=== PATIENT | male | born 1950 | race Caucasian/White ===

== ENCOUNTER 2018-06-29 10:15 | Emergency (ER) | payer MEDICARE, SELFPAY ==
--- NOTE | 2018-06-29 10:19 | ED.SKABFB ---
HPI - Skin/Abscess/Foreign Bdy General Chief complaint: Skin/Abscess/Foreign Body Stated complaint: painful rash in groin area Time Seen by Provider: 06/29/18 10:18 Source: patient Mode of arrival: ambulatory Limitations: no limitations History of Present Illness HPI narrative: 68M nonsmoker, on no medications presents with a chief complaint a few months intensely pruritic darkening skin in his groin including the scrotum. He has tried various [id number] medications including steroid cream and Lamisil which of proven unsuccessful. He denies any pain or drainage. He has had no fever or chills. He denies any dysuria, frequency or urgency. He is otherwise healthy Related Data Previous Rx's Medication Instructions Recorded terbinafine HCl 250 mg PO DAILY #14 tab 06/29/18 Allergies Allergy/AdvReac Type Severity Reaction Status Date / Time No Known Drug Allergies Allergy Verified 06/29/18 10:29 Review of Systems Constitutional Denies chills, Denies fever(s), Denies lethargy and Denies weakness Eyes Denies change in vision, Denies eye discharge, Denies irritation and Denies loss of vision ENT Ears, Nose, Mouth, and Throat: Denies change in voice, Denies neck pain and Denies sore throat Cardiovascular Denies chest pain, Denies irregular heart rhythm, Denies lightheadedness, Denies palpitations, Denies dyspnea, Denies dyspnea on exertion and Denies orthopnea Respiratory Denies cough, Denies dyspnea, Denies dyspnea on exertion and Denies wheezing Gastrointestinal Gastrointestinal: Denies abdominal pain, Denies change in bowel habits, Denies diarrhea, Denies nausea and Denies vomiting Genitourinary Denies hematuria, Denies flank pain, Denies urinary incontinence and Denies urinary urgency Musculoskeletal Denies neck pain Integumentary/Breasts Reports pruritus, Reports erythema, Reports rash and Denies wounds Neurologic Denies confusion, Denies loss of vision and Denies weakness Psychiatric Denies anxiety, Denies confusion, Denies depression, Denies homicidal ideation and Denies suicidal ideation Endocrine Denies palpitations Hematologic/Lymphatic Denies easy bruising Allergic/Immunologic Denies wheezing PFSH Surgical History Status post arthroscopy Status post knee surgery Social History Smoking Status: Never smoker Social History Smoking Status: Never smoker Exam Narrative Exam Narrative: GEN: AOx3 and in mild distress EYES: Pupils are equal, round, and reactive to light and accommodation. Extraoccular muscles are intact bilaterally. There is no subconjunctival hemorrhage or exudate. CHEST: Lungs are clear to auscultation bilaterally and free of wheezes, rales, or rhonchi. Heart rate is regular rhythm, there are no murmurs, clicks, rubs, or gallops. There is no chest wall tenderness. ABD: Abdomen is soft and nontender. There is no guarding or rebound. Bowel sounds are normal in all 4 quadrants. There is no mass or organomegaly. EXT: Full painless ROM of all extremities with no loss of sensation or strength. SKIN: intensely pruritic finally demarcated, erythematous skin of the groin and scrotum including the skin folds with satellite lesions. There is no drainage or pain. Initial Vital Signs Initial Vital Signs: Vital Signs Temperature 98.1 F 06/29/18 10:27 Pulse Rate 69 06/29/18 10:27 Respiratory Rate 14 06/29/18 10:27 Blood Pressure 140/81 06/29/18 10:27 Pulse Oximetry 100 06/29/18 10:27 Course Vital Signs - 8 hr 06/29/18 12:06 Temperature 97.8 F Pulse Rate 94 H Respiratory Rate 18 Blood Pressure [Left Arm] 132/77 Pulse Oximetry 99 MDM - Skin/Abscess/Foreign Bdy MDM Narrative Medical decision making narrative: Multiple etiologies for patient's symptoms considered including: [ Cellulitis versus fungal infection versus Desi versus other] Patient's symptoms improved or duration of stay with above-stated therapies. Findings and discharge diagnosis discussed with patient/family followed by verbalization of understanding Return precautions discussed with patient/family whom verbalize understanding. Discharge Plan Departure Patient Disposition: Home Clinical Impression: Tinea cruris Discharge Date/Time: 06/29/18 12:20 Interventions: ED Discharge Assessment Last Done: 06/29/18 12:19 Instructions: Jock Itch Activity Restrictions/Additional Instructions: *You have been diagnosed with [tinea cruris, jock itch] *What to do: *Take medications as directed *Follow up with your primary care provider in 2-3 days, call for an appointment. Let them know you were seen in the Emergency Department and that we ask that you be seen in follow up *Return to ER if you should have any new, worsening or concerning symptoms Prescriptions: New terbinafine HCl 250 mg tablet 250 mg PO DAILY Qty: 14 RF: 0 Referrals: Toma Bailey DO [Primary Care Provider] -
[2018-06-29 10:27] VITALS: BP 140/81; PULSE 69; RESP 14; TEMP 36.7; O2SAT 100
[2018-06-29 12:06] VITALS: BP 132/77; PULSE 94; RESP 18; TEMP 36.6; O2SAT 99
== END 2018-06-29 12:20 | disposition home or self-care (01) ==
PROVIDERS: Emergency Provider Emergency Medicine; Family Provider Family Medicine; PCP Family Medicine
DX: B35.6 Tinea cruris (principal)
CPT/HCPCS: 99282

== ENCOUNTER 2018-07-09 10:11 | Emergency (ER) | payer MEDICARE, SELFPAY ==
[2018-07-09 10:14] VITALS: BP 133/82; PULSE 101; RESP 21; TEMP 36.4; O2SAT 99
--- NOTE | 2018-07-09 11:09 | ED.MALEGU ---
HPI - Male Genitourinary General Chief complaint: Urogenital-Male Stated complaint: infection Time Seen by Provider: 07/09/18 11:09 Source: patient and old records reviewed Mode of arrival: ambulatory Limitations: no limitations History of Present Illness HPI Narrative: Patient is a 68-year-old male who presents with tinea cruris. he has had this problem in the past it has been ongoing for the last number of months. On 06/29/2018 he was given prescription for terbinafine. He has 3 tablets left he says at honestly has not helped at all and in fact over the last 2 days it has gotten significantly worse. He continues to have pruritus but he feels like the redness has gotten worse. He denies any fever no testicular pain. He has also been applying Lamisil cream daily and as prescribed without any relief. His symptoms really have been going on for a few months. Duration: constant Location: penis, right testicle, left testicle, right inguinal region and left inguinal region Quality: other ( Itching) Relieving factors: none Exacerbating factors: none Related Data Previous Rx's Medication Instructions Recorded cephalexin 500 mg PO TID #21 cap 07/09/18 ketoconazole 1 applictn TOP DAILY 14 Days #30 07/09/18 gram Allergies Allergy/AdvReac Type Severity Reaction Status Date / Time No Known Drug Allergies Allergy Verified 06/29/18 10:29 Review of Systems Review of Systems ROS Unobtainable: All systems reviewed & are unremarkable except as noted in HPI and below Constitutional Denies chills, Denies fever(s), Denies lethargy and Denies weakness Eyes Denies change in vision, Denies eye discharge, Denies irritation and Denies loss of vision Cardiovascular Denies chest pain, Denies irregular heart rhythm, Denies lightheadedness, Denies palpitations, Denies dyspnea, Denies dyspnea on exertion and Denies orthopnea Respiratory Denies cough, Denies dyspnea, Denies dyspnea on exertion and Denies wheezing Gastrointestinal Gastrointestinal: Denies abdominal pain, Denies change in bowel habits, Denies diarrhea, Denies nausea and Denies vomiting Genitourinary Reports as per HPI, Reports genital pain, Denies penile discharge, Denies testicular mass, Denies testicular pain and Denies urinary frequency Integumentary/Breasts Reports as per HPI Neurologic Denies loss of vision and Denies weakness Endocrine Denies palpitations Allergic/Immunologic Denies wheezing [facility] Medical History Tinea cruris (Acute) Surgical History Status post arthroscopy Status post knee surgery Social History Smoking Status: Never smoker Social History Smoking Status: Never smoker Exam Initial Vital Signs Initial Vital Signs: Vital Signs Temperature 97.6 F 07/09/18 10:14 Pulse Rate 101 H 07/09/18 10:14 Respiratory Rate 21 07/09/18 10:14 Blood Pressure 133/82 07/09/18 10:14 Pulse Oximetry 99 07/09/18 10:14 GENERAL: alert well-appearing elderly male no acute distress CARDIOVASCULAR: peripheral pulses in tact, cap refill <2 sec RESPIRATORY: No respiratory distress, speaks in full sentences without difficulty : nurse Anton present for exam. Testicles descended nonpainful both slightly enlarged. Patient has significant erythematous rash medial thighs covering testicles and penile area. very clearly demarcated some stellate lesions noted. EXTREMITIES: Normal range of motion, no clubbing or edema. Neurovascularly intact NEUROLOGICAL: Cranial nerves II through XII grossly intact. Normal gait and speech. SKIN: Warm, dry, no petechiae, no rashes or lesions. Course Vital Signs - 8 hr 07/09/18 10:14 Temperature 97.6 F Pulse Rate 101 H Respiratory Rate 21 Blood Pressure 133/82 Pulse Oximetry 99 MDM - Male Genitourinary MDM Narrative Medical decision making narrative: Patient has been putting on cream in taking her prescribed medication however the last few days ago worse. Possible cellulitis as well. The patient does have an appointment with his PCP next week. At this time will change cream to ketoconazole and place him on antibiotic. He is afebrile does not appear septic. Discharge Plan Departure Patient Disposition: Home Clinical Impression: Tinea cruris Discharge Date/Time: 07/09/18 11:57 Interventions: ED Discharge Assessment Last Done: 07/09/18 11:57 Instructions: Gil Itch Activity Restrictions/Additional Instructions: *You have been diagnosed with tinea cruris *What to do: STOP [id number] medication, *Continue to take medications as directed apply ketoconazole once daily for 2 weeks- this is anti fungal Keflex 500 mg 3 times a day for 1 week this is an antibiotic *Follow up with your primary care provider as scheduled on July 20 *Return to ER if you should have spreading of the redness, fever, increased pain or any new, worsening or concerning symptoms Prescriptions: New cephalexin 500 mg capsule 500 mg PO TID Qty: 21 RF: 0 ketoconazole 2 % cream 1 applictn TOP DAILY 14 Days Qty: 30 RF: 0 Discontinued terbinafine HCl 250 mg tablet 250 mg PO DAILY Qty: 14 RF: 0 Referrals: Toma Bailey DO [Primary Care Provider] -
--- NOTE | 2018-07-09 11:44 | PC.NURSE ---
Patient presents with significant swelling, redness and pain to scrotum, bilateral inner thighs and penis. Has been on oral antifungal agent and OTC cream for couple weeks with minimal to no relief. Denies fever or chills
== END 2018-07-09 11:57 | disposition home or self-care (01) ==
PROVIDERS: Emergency Provider Emergency Medicine; Family Provider Family Medicine; PCP Family Medicine
DX: B35.6 Tinea cruris (principal)
CPT/HCPCS: 99282

== ENCOUNTER → 2019-01-07 13:16 | Outpatient (CLI) | payer MEDICARE, SELFPAY ==
[2019-01-25 11:15] LABS: Complement C3 93
== END ==
PROVIDERS: PCP Family Medicine; Visit Provider Physician Assistant
DX: L95.8 Other vasculitis limited to the skin (principal); L57.8 Other skin changes due to chronic exposure to nonionizing radiation; X32.XXXA Exposure to sunlight, initial encounter
CPT/HCPCS: 36415; 86160

== ENCOUNTER → 2019-01-25 16:28 | Outpatient (CLI) | payer MEDICARE, SELFPAY ==
[2019-01-25 17:06] LABS: Add Manual Diff / Slide Review NO; Basophils Absolute Auto 100 /uL (0-100); Basophils Percent Auto 1.1 % (0-2); Eosinophils Absolute Auto 100 /uL (0-450); Eosinophils Percent Auto 1.7 % (2-4); Hematocrit 43.4 % (41-53); Lymphocytes Absolute Auto 1900 /uL (1100-4500); Lymphocytes Percent Auto 39.1 % (25-40); Mean Corpuscular HGB Conc 34.5 % (30-36); Mean Corpuscular Hemoglobin 36.4 PG (26-34); Mean Corpuscular Volume 105.4 fL (80-100); Monocytes Absolute Auto 300 /uL (0-900); Neutrophils Absolute Auto 2400 /uL (1500-7000); Neutrophils Percent Auto 51.1 % (50-75); Platelet Count 107 X10^3/uL (150-400); Red Blood Cell Count 4.11 X10^6/uL (4.5-5.9); Red Cell Distribution Width 14.2 % (11.6-14.8); White Blood Cell Count 4.7 X10^3/uL (4.5-11.0)
[2019-01-25 17:17] LABS: Chloride 104 mmol/L (98-107); HEMOLYSIS < 15 (0-50)
[2019-01-25 17:20] LABS: Alanine Aminotransferase 28 IU/L (21-72); Albumin 3.8 g/dL (3.5-5.0); Albumin Globulin Ratio 0.9 (1.0-2.8); Alkaline Phosphatase 101 U/L (38-126); Aspartate Aminotransferase 37 IU/L (17-59); BUN Creatinine Ratio 13.8 (6-22); Bilirubin Total 1.1 mg/dL (0.2-1.3); Blood Urea Nitrogen 11 mg/dL (9-20); Calcium 9.3 mg/dL (8.4-10.2); Carbon Dioxide 25 mmol/L (22-32); Estimated Glomerular Filt Rate > 60.0 mL/min (>60); Globulin 4.4 g/dL (1.7-4.1); Glucose 166 mg/dL (80-110); Potassium 3.8 mmol/L (3.4-5.1); Sodium 139 mmol/L (137-145); Total Protein 8.2 g/dL (6.3-8.2)
[2019-01-25 17:27] LABS: Erythrocyte Sedimentation Rate 36 MM/HR (0-15)
[2019-01-28 23:01] LABS: ANA Screen, IFA NEGATIVE (NEGATIVE)
== END ==
PROVIDERS: PCP Family Medicine; Visit Provider Physician Assistant
DX: L95.8 Other vasculitis limited to the skin (principal); L29.8 Other pruritus
CPT/HCPCS: 36415; 80053; 85025; 85651; 86038

== ENCOUNTER → 2020-05-10 11:00 | Outpatient (CLI) | payer MEDICARE, SELFPAY ==
[2020-05-10 11:46] LABS: Add Manual Diff / Slide Review NO; Basophils Absolute Auto 0 /uL (0-100); Basophils Percent Auto 0.9 % (0-2); Eosinophils Absolute Auto 100 /uL (0-450); Eosinophils Percent Auto 3.1 % (2-4); Hematocrit 41.2 % (41-53); Hemoglobin 14.2 g/dL (13.5-17.5); Lymphocytes Absolute Auto 1400 /uL (1100-4500); Lymphocytes Percent Auto 30.1 % (25-40); Mean Corpuscular HGB Conc 34.5 % (30-36); Mean Corpuscular Hemoglobin 34.5 PG (26-34); Mean Corpuscular Volume 99.8 fL (80-100); Monocytes Absolute Auto 400 /uL (0-900); Monocytes Percent Auto 8.4 % (3-14); Neutrophils Absolute Auto 2700 /uL (1500-7000); Neutrophils Percent Auto 57.5 % (50-75); Platelet Count 129 X10^3/uL (150-400); Red Blood Cell Count 4.13 X10^6/uL (4.5-5.9); Red Cell Distribution Width 13.5 % (11.6-14.8); White Blood Cell Count 4.7 X10^3/uL (4.5-11.0)
[2020-05-10 11:59] LABS: Alanine Aminotransferase 57 IU/L (<50); Albumin 4.2 g/dL (3.5-5.0); Albumin Globulin Ratio 0.9 (1.0-2.8); Alkaline Phosphatase 115 U/L (38-126); Aspartate Aminotransferase 59 IU/L (17-59); BUN Creatinine Ratio 19.4 (6-22); Bilirubin Total 0.7 mg/dL (0.2-1.3); Bilirubin Unconjugated 0.5 mg/dL (0.0-1.1); Blood Urea Nitrogen 13 mg/dL (9-20); Calcium 9.6 mg/dL (8.4-10.2); Carbon Dioxide 28 mmol/L (22-32); Chloride 105 mmol/L (98-107); Cholesterol 170 mg/dL (140-199); Estimated Glomerular Filt Rate > 60.0 mL/min (>60); Globulin 4.7 g/dL (1.7-4.1); Glucose 109 mg/dL (80-110); HDL Cholesterol 63 mg/dL (40-60); HEMOLYSIS 20 (0-50); LDL Cholesterol Calculated 93 mg/dL (<100); Potassium 4.4 mmol/L (3.4-5.1); Sodium 135 mmol/L (137-145); Total Protein 8.9 g/dL (6.3-8.2); Triglycerides 68 mg/dL (35-150)
[2020-05-10 13:01] LABS: Hepatitis B Surface Antigen NEGATIVE s/c (NEGATIVE)
[2020-05-10 13:51] LABS: Hep C Virus Ab w/Reflex Quant REACTIVE s/c (NEGATIVE)
[2020-05-11 04:15] LABS: Hepatitis B Surf AB Quant 37.5 mIU/mL (Immunity>9.9)
[2020-05-11 04:36] LABS: Hepatitis B Core AB w/Reflex Positive (Negative); Hepatitis B Core AB, IgM Negative (Negative)
[2020-05-14 19:06] LABS: QuantiFERON Mitogen Value 9.98 IU/mL (.); QuantiFERON Nil Value 0.08 IU/mL (.); QuantiFERON TB Gold Plus Negative (Negative); QuantiFERON TB1 Ag Value 0.11 IU/mL (.); QuantiFERON TB2 Ag Value 0.09 IU/mL (.)
[2020-05-17 09:36] LABS: HCV Genotype 2b (.); HCV LOG 10 5.228 (.)
== END ==
PROVIDERS: PCP Family Medicine; Referring Provider Physician Assistant; Visit Provider Physician Assistant
DX: L40.0 Psoriasis vulgaris (principal)
CPT/HCPCS: 36415; 80048; 80061; 80076; 85025; 86480; 86704; 86706; 86803; 87340; 87522; 87902

== ENCOUNTER → 2020-07-20 11:47 | Outpatient (CLI) | payer MEDICARE, SELFPAY ==
[2020-07-20 12:15] LABS: Add Manual Diff / Slide Review NO; Basophils Absolute Auto 0 /uL (0-100); Basophils Percent Auto 0.9 % (0-2); Eosinophils Absolute Auto 200 /uL (0-450); Eosinophils Percent Auto 3.6 % (2-4); Hematocrit 43.9 % (41-53); Hemoglobin 15.1 g/dL (13.5-17.5); Lymphocytes Absolute Auto 1700 /uL (1100-4500); Lymphocytes Percent Auto 34.5 % (25-40); Mean Corpuscular HGB Conc 34.5 % (30-36); Mean Corpuscular Hemoglobin 34.1 PG (26-34); Mean Corpuscular Volume 98.7 fL (80-100); Monocytes Absolute Auto 500 /uL (0-900); Monocytes Percent Auto 9.4 % (3-14); Neutrophils Absolute Auto 2600 /uL (1500-7000); Neutrophils Percent Auto 51.6 % (50-75); Platelet Count 113 X10^3/uL (150-400); Red Blood Cell Count 4.44 X10^6/uL (4.5-5.9); Red Cell Distribution Width 13.6 % (11.6-14.8)
[2020-07-20 12:31] LABS: INR 1.1 (0.9-1.3); Prothrombin Time 12.5 SECONDS (10.1-12.7)
[2020-07-20 12:40] LABS: Alanine Aminotransferase 93 IU/L (<50); Albumin 4.4 g/dL (3.5-5.0); Albumin Globulin Ratio 0.9 (1.0-2.8); Alkaline Phosphatase 118 U/L (38-126); Aspartate Aminotransferase 77 IU/L (17-59); BUN Creatinine Ratio 20.3 (6-22); Bilirubin Total 0.8 mg/dL (0.2-1.3); Blood Urea Nitrogen 15 mg/dL (9-20); Calcium 9.7 mg/dL (8.4-10.2); Carbon Dioxide 23 mmol/L (22-32); Chloride 106 mmol/L (98-107); Estimated Glomerular Filt Rate > 60.0 mL/min (>60); Globulin 4.7 g/dL (1.7-4.1); Glucose 110 mg/dL (80-110); HEMOLYSIS < 15 (0-50); Sodium 137 mmol/L (137-145); Total Protein 9.1 g/dL (6.3-8.2)
[2020-07-20 19:59] LABS: HIV 1 & 2 Ab/Ag 4th Gen Combo NEGATIVE (NEGATIVE)
== END ==
PROVIDERS: PCP Family Medicine; Referring Provider Family Medicine; Visit Provider Family Medicine
DX: B19.20 Unspecified viral hepatitis C without hepatic coma (principal)
CPT/HCPCS: 36415; 80053; 85025; 85610; 87389

== ENCOUNTER → 2020-07-25 10:11 | Outpatient (CLI) | payer MEDICARE, SELFPAY ==
--- NOTE | 2020-07-25 10:13 | DI.US.S_ITS ---
PROCEDURE: US ABDOMEN COMPLETE INDICATIONS: hepatitis c TECHNIQUE: Real-time scanning was performed of the abdominal and retroperitoneal organs, with image documentation. COMPARISON: None. FINDINGS: Liver: Liver is normal in size and homogeneous in echotexture. Hyperechoic solid mass as well as a solid hypoechoic mass within the right hepatic lobe measuring 1.4 x 1.8 x 2.5 cm and 2.1 x 2.2 x 2.5 cm respectively. Gallbladder: No gallstones identified. Normal gallbladder wall. No pericholecystic fluid. Negative sonographic Wallis sign. 8 mm gallbladder polyp versus adherent stone. Biliary ducts: Intrahepatic bile ducts are non-dilated. Extrahepatic bile duct caliber measures 4.9 mm. Normal is 6-7 mm or less in diameter, or 10 mm or less post-cholecystectomy. Pancreas: Visualized portions of the pancreas are sonographically normal. Spleen: Spleen is enlarged in size at 14.1 cm and homogeneous in echotexture. Kidneys: Kidneys are normal in size and echotexture. Right kidney measures 12.4 cm long; left kidney measures 12.4 cm long. No hydronephrosis or nephrolithiasis. No solid masses. Aorta: Visualized aorta is normal in caliber at less than 3 cm. Iliacs: Proximal common iliac arteries are normal in caliber at less than 2.5 cm. IVC: Intrahepatic inferior vena cava is patent. Miscellaneous: No free abdominal fluid. IMPRESSION: 1. 2 masses within the liver, each measuring up to 2.5 cm in maximal diameter. Although the hyperechoic mass may represent an hemangioma, the 2nd mass does not have typical appearance as such and underlying malignant process cannot be excluded. Recommend hepatic protocol MRI for further characterization. 2. Gallbladder polyp versus adherent nonshadowing gallstone. Six-month follow-up ultrasound is recommended to assess for interval changes. 3. Mild sonographic splenomegaly. Dictated by: Rey Dave [facility] Interpreted: [place] MD on 07/25/2020 at 12:53 Approved by: Twin Hill M.D. on 07/25/2020 at 16:10
== END ==
PROVIDERS: PCP Family Medicine; Referring Provider Family Medicine; Visit Provider Family Medicine
DX: B19.20 Unspecified viral hepatitis C without hepatic coma (principal); R16.2 Hepatomegaly with splenomegaly, not elsewhere classified
CPT/HCPCS: 76700

== ENCOUNTER → 2020-08-08 09:40 | Outpatient (CLI) | payer MEDICARE, SELFPAY | PROVIDERS: PCP Family Medicine; Referring Provider Family Medicine; Visit Provider Family Medicine | DX: B19.10 Unspecified viral hepatitis B without hepatic coma (principal); B18.2 Chronic viral hepatitis C; Z53.20 Procedure and treatment not carried out because of patient's decision for unspecified reasons ==

== ENCOUNTER → 2020-08-16 15:48 | Outpatient (CLI) | payer MEDICARE, SELFPAY ==
[2020-08-16 16:55] LABS: INR 1.2 (0.9-1.3); Prothrombin Time 13.2 SECONDS (10.1-12.7)
[2020-08-16 17:42] LABS: Ferritin 171 ng/mL (18-464)
[2020-08-19 02:10] LABS: ANA Screen, IFA Negative (.)
== END ==
PROVIDERS: PCP Family Medicine; Referring Provider Internal Medicine Gastroenterology; Visit Provider Internal Medicine Gastroenterology
DX: B19.20 Unspecified viral hepatitis C without hepatic coma (principal)
CPT/HCPCS: 36415; 82728; 85610; 86038

== ENCOUNTER → 2020-12-03 14:25 | Outpatient (CLI) | payer MEDICARE, SELFPAY ==
--- NOTE | 2020-12-03 14:28 | DI.RAD.S_ITS ---
PROCEDURE: XR SHOULDER RT MIN 2V INDICATIONS: Right shoulder pain x5 months TECHNIQUE: 3 views of the shoulder were acquired. COMPARISON: None. FINDINGS: Bones: No fractures or dislocations. No suspicious bony lesions. Visualized ribs appear intact. Soft tissues: No suspicious soft tissue calcifications. IMPRESSION: Mild AC joint osteoarthritis, no trauma found. Dictated by: Corby Zavala M.D. on 12/03/2020 at 16:07 Approved by: Corby Zavala M.D. on 12/03/2020 at 16:08
== END ==
PROVIDERS: PCP Family Medicine; Referring Provider Family Medicine; Visit Provider Family Medicine
DX: M25.511 Pain in right shoulder (principal); M19.011 Primary osteoarthritis, right shoulder
CPT/HCPCS: 73030

== ENCOUNTER → 2021-01-14 10:48 | Outpatient (CLI) | payer MEDICARE, SELFPAY ==
[2021-01-14 11:38] LABS: Add Manual Diff / Slide Review NO; Basophils Absolute Auto 0 /uL (0-100); Basophils Percent Auto 0.6 % (0-2); Eosinophils Absolute Auto 100 /uL (0-450); Eosinophils Percent Auto 1.7 % (2-4); Hemoglobin 13.6 g/dL (13.5-17.5); Lymphocytes Absolute Auto 1500 /uL (1100-4500); Lymphocytes Percent Auto 33.3 % (25-40); Mean Corpuscular Hemoglobin 32.2 PG (26-34); Mean Corpuscular Volume 94.8 fL (80-100); Monocytes Absolute Auto 400 /uL (0-900); Monocytes Percent Auto 7.9 % (3-14); Neutrophils Absolute Auto 2600 /uL (1500-7000); Neutrophils Percent Auto 56.5 % (50-75); Platelet Count 189 X10^3/uL (150-400); Red Blood Cell Count 4.22 X10^6/uL (4.5-5.9); Red Cell Distribution Width 12.6 % (11.6-14.8); White Blood Cell Count 4.7 X10^3/uL (4.5-11.0)
[2021-01-14 11:50] LABS: Alanine Aminotransferase 28 IU/L (<50); Albumin Globulin Ratio 0.8 (1.0-2.8); Alkaline Phosphatase 104 U/L (38-126); Aspartate Aminotransferase 39 IU/L (17-59); BUN Creatinine Ratio 27.9 (6-22); Bilirubin Total 0.5 mg/dL (0.2-1.3); Blood Urea Nitrogen 19 mg/dL (9-20); C-Reactive Protein Quant 1.7 mg/dL (<1.0); Calcium 9.6 mg/dL (8.4-10.2); Carbon Dioxide 24 mmol/L (22-32); Chloride 107 mmol/L (98-107); Estimated Glomerular Filt Rate > 60.0 mL/min (>60); Globulin 4.8 g/dL (1.7-4.1); Glucose 110 mg/dL (80-110); HEMOLYSIS < 15 (0-50); Potassium 4.2 mmol/L (3.4-5.1); Sodium 136 mmol/L (137-145); Total Protein 8.8 g/dL (6.3-8.2)
[2021-01-14 11:56] LABS: Erythrocyte Sedimentation Rate 58 MM/HR (0-15)
[2021-01-14 11:57] LABS: Rheumatoid Factor < 8.6 IU/mL (<12.0)
[2021-01-17 10:45] LABS: HBsAg Screen Negative (Negative); Hepatitis A Antibody IgM Negative (Negative); Hepatitis B Core Antibody IgM Negative (Negative); Hepatitis C Antibody >11.0 s/co ratio (0.0-0.9); Hepatitis C Quant HCV Not Detected IU/mL (.)
== END ==
PROVIDERS: PCP Family Medicine; Referring Provider Internal Medicine Gastroenterology; Visit Provider Internal Medicine Gastroenterology
DX: B19.20 Unspecified viral hepatitis C without hepatic coma (principal); M79.10 Myalgia, unspecified site; M25.50 Pain in unspecified joint
CPT/HCPCS: 36415; 80053; 80074; 85025; 85651; 86140; 86430; 87522

== ENCOUNTER → 2021-04-04 10:57 | Outpatient (CLI) | payer MEDICARE, SELFPAY ==
[2021-04-04 12:05] LABS: Add Manual Diff / Slide Review NO; Basophils Absolute Auto 0 /uL (0-100); Basophils Percent Auto 0.6 % (0-2); Eosinophils Absolute Auto 0 /uL (0-450); Eosinophils Percent Auto 0.8 % (2-4); Hematocrit 42.5 % (41-53); Hemoglobin 14.1 g/dL (13.5-17.5); Lymphocytes Absolute Auto 2100 /uL (1100-4500); Lymphocytes Percent Auto 34.9 % (25-40); Mean Corpuscular HGB Conc 33.3 % (30-36); Mean Corpuscular Hemoglobin 31.1 PG (26-34); Mean Corpuscular Volume 93.5 fL (80-100); Monocytes Absolute Auto 500 /uL (0-900); Neutrophils Absolute Auto 3300 /uL (1500-7000); Neutrophils Percent Auto 55.7 % (50-75); Platelet Count 187 X10^3/uL (150-400); Red Blood Cell Count 4.55 X10^6/uL (4.5-5.9); Red Cell Distribution Width 14.4 % (11.6-14.8); White Blood Cell Count 5.9 X10^3/uL (4.5-11.0)
[2021-04-04 12:47] LABS: Alanine Aminotransferase 18 IU/L (<50); Albumin 4.2 g/dL (3.5-5.0); Alkaline Phosphatase 92 U/L (38-126); Aspartate Aminotransferase 28 IU/L (17-59); BUN Creatinine Ratio 16.9 (6-22); Bilirubin Total 0.7 mg/dL (0.2-1.3); Bilirubin Unconjugated 0.5 mg/dL (0.0-1.1); Blood Urea Nitrogen 13 mg/dL (9-20); Calcium 9.7 mg/dL (8.4-10.2); Carbon Dioxide 25 mmol/L (22-32); Chloride 101 mmol/L (98-107); Cholesterol 157 mg/dL (140-199); Estimated Glomerular Filt Rate > 60.0 mL/min (>60); Globulin 4.4 g/dL (1.7-4.1); Glucose 105 mg/dL (80-110); HDL Cholesterol 59 mg/dL (40-60); HEMOLYSIS < 15 (0-50); LDL Cholesterol Calculated 86 mg/dL (<100); Potassium 4.6 mmol/L (3.4-5.1); Sodium 135 mmol/L (137-145); Total Protein 8.6 g/dL (6.3-8.2); Triglycerides 61 mg/dL (35-150)
[2021-04-04 18:06] LABS: Hep C Virus Ab w/Reflex Quant REACTIVE s/c (NEGATIVE)
[2021-04-05 04:08] LABS: Hepatitis B Surf AB Quant 20.3 mIU/mL (Immunity>9.9)
[2021-04-05 07:14] LABS: Hepatitis B Surf Ab Qualitativ Reactive (.)
[2021-04-05 09:06] LABS: Hepatitis B Core AB w/Reflex Positive (Negative); Hepatitis B Core AB, IgM Negative (Negative)
[2021-04-08 09:07] LABS: QuantiFERON Mitogen Value >10.00 IU/mL (.); QuantiFERON Nil Value 0.11 IU/mL (.); QuantiFERON TB Gold Plus Negative (Negative)
== END ==
PROVIDERS: PCP Family Medicine; Referring Provider Dermatology; Visit Provider Dermatology
DX: L40.0 Psoriasis vulgaris (principal); L57.8 Other skin changes due to chronic exposure to nonionizing radiation; L81.4 Other melanin hyperpigmentation
CPT/HCPCS: 36415; 80048; 80061; 80076; 85025; 86480; 86704; 86706; 86803

== ENCOUNTER → 2021-04-25 11:58 | Outpatient (CLI) | payer MEDICARE, MEDICAID, SELFPAY | PROVIDERS: PCP Family Medicine; Referring Provider Orthopaedic Surgery; Visit Provider Orthopaedic Surgery | DX: Z01.818 Encounter for other preprocedural examination (principal) | CPT/HCPCS: 93005; 93010 ==

== ENCOUNTER → 2021-05-09 11:49 | Outpatient (CLI) | payer MEDICARE, MEDICAID, SELFPAY ==
[2021-05-12 19:40] LABS: Hepatitis B Virus HBV DNA not detected IU/mL (.)
== END ==
PROVIDERS: PCP Family Medicine; Referring Provider Dermatology; Visit Provider Dermatology
DX: L40.0 Psoriasis vulgaris (principal)
CPT/HCPCS: 36415; 87522

== ENCOUNTER → 2021-05-20 10:55 | Outpatient (CLI) | payer MEDICARE, MEDICAID, SELFPAY ==
[2021-05-20 15:57] LABS: COVID19 -Nasal RAPID Negative (Negative)
== END ==
PROVIDERS: PCP Family Medicine; Referring Provider Physician Assistant; Visit Provider Physician Assistant
DX: Z01.812 Encounter for preprocedural laboratory examination (principal); Z20.822 Contact with and (suspected) exposure to COVID-19
CPT/HCPCS: 87635; C9803

== ENCOUNTER 2021-05-21 09:22 | Day surgery (SDC) | payer MEDICARE, MEDICAID, SELFPAY ==
[2021-05-01 09:15] VITALS: BMI 28.3
[2021-05-21] VITALS (15 sets, daily range): BP systolic 102–138; BP diastolic 63–86; PULSE 54–99; RESP 12–20; TEMP 35.9–37; O2SAT 94–98; BMI 28.3; BMI 28.5
--- NOTE | 2021-05-21 06:00 | DI.RAD.S_ITS ---
PROCEDURE: XR KNEE RT 1TO2V INDICATIONS: prosthesis placement TECHNIQUE: 2 view(s) of the knee acquired. [facility], [facility], XR KNEE ARTHRITIC SERIES BI, 03/07/2021, 16:18. FINDINGS: Bones: Patient is status post knee joint arthroplasty. Hardware components are in expected positions. Visualized bony structures are intact. Soft tissues: Overlying postoperative changes are noted. IMPRESSION: Expected immediate postoperative appearance of right TKA. Dictated by: Rey WOODSON Interpreted: Dasha Em MD on 05/21/2021 at 16:21 Transcribed by: WENCESLAO on 05/21/2021 at 16:21 Approved by: Dasha Em M.D. on 05/21/2021 at 20:57
[2021-05-21] MEDS: ACETAMINOPHEN 325 MG TABLET 975 MG PO (10:02)
[2021-05-21] MEDS: PREGABALIN 75 MG CAPSULE PO (10:03)
[2021-05-21] MEDS: VANCOMYCIN 1,000 MG/200 ML PIGGYBACK 200 MG IV (10:03)
[2021-05-21] MEDS: LACTATED RINGERS 1,000 ML 42 ML IV ×2 (10:03→12:11)
[2021-05-21] MEDS: CELECOXIB 200 MG CAPSULE PO (10:03)
--- NOTE | 2021-05-21 10:45 | PM.PREOP ---
Pre-operative Note COVID-19 COVID-19 status: Negative Interval Note History & Physical reviewed/Exam performed by Physician: Yes Changes to H&P: No
--- NOTE | 2021-05-21 10:45 | PM.OP.1 ---
Operative Date/Time/Diagnoses Date of procedure: 05/21/21 Time of procedure: 11:00 Pre-op diagnosis: Right knee osteoarthritis with history of instability and ACL reconstruction Post-op diagnosis: same Procedure & Clinicians Procedure: Right total knee arthroplasty Same procedure as scheduled: Yes Indications: The patient has had progressively worsening right knee pain with radiographic changes consistent with arthritis. Non-operative management has failed and the patient has requested total knee replacement. The risks, benefits and alternatives to surgery were discussed with the patient prior to proceeding. Risks discussed included, but were not limited to, failure to relieve pain, stiffness, infection, nerve damage, deep venous thrombosis, pulmonary embolism, stroke, coma, heart attack, permanent paralysis and , as well as the potential need for eventual revision of the prosthetic. Surgeon: Nicky Cardenas [employer] Operator: Dann Lau Anesthesia Type: General and Peripheral nerve block Operative Notes Findings: Severe right knee osteoarthritis, acceptable stability Closure Type: primary Specimen(s): none sent Prosthetic devices, grafts, tissues, transplants, or devices: [facility] 2 size 8 femur, size 7 tibia, +9 poly, 35 oval patella Applied: drain(s) Estimated Blood Loss (mL): 250 Blood products transfused: none Tourniquet time (min): 83 Procedure in detail: The patient was seen in the pre-operative area, where the patient identified the right knee as the operative site and this was marked with my initials. The patient received pre-operative antibiotics, and was taken to the operating room and placed on the operative table in the supine position. After satisfactory anesthesia, a assistant production editor out was performed. The right leg was encircled with a tourniquet about the proximal thigh, and the leg was prepared from the toes to the tourniquet with ChloroPrep in the usual fashion and draped through sterile drapes. The leg was elevated and exsanguinated with Eschmark bandage and the tourniquet inflated to [250] mmHg pressure. The knee was approached through an approximately 18 cm incision centered over the patella and carried into the knee through a medial parapatellar arthrotomy. A portion of the medial and lateral meniscus was resected. Soft tissue was carefully mobilized around the patella the patella was measured with a caliper. Bone was resected from the patella and the patellar height was reconstituted with up an appropriate sized patellar component. A cover was then placed on the patella. A small amount of additional medial and lateral meniscus was resected. The distal femur was cut at 5?. A [+2] cut was used. It looked like an appropriate distal femoral cut and the cut was made without difficulty. An extramedullary guide was used for the tibial cut. 10 mm was resected off the least affected side. The tibia was prepared. The rotation was assessed. The patient was placed in extension residual medial and lateral meniscus as well as any residual bone was carefully resected. [No] additional tibia was resected. Hemostasis was achieved especially posteriorly. Additional local was injected into the posterior capsule. The extension gap was assessed and additional releases for gap balancing were performed as necessary. It was checked with the gap lodging facilities manager. The femoral component trial was placed and the notch was finished. The rotation was assessed and the appropriate size femoral guide was placed on the distal femur and finishing cuts were made. There was no evidence of notching. The anterior, posterior and chamfer cuts were then made. The posterior osteophytes and soft tissues were then removed. The posterior capsule was injected with part of a mixture of 60 ml 0.25% Marcaine mixed with 20 ml Exparel for post operative pain control. The remainder of this mixture was injected into the capsule and subcutaneous tissues during cement curing. The tibial and femoral components were then placed and the knee placed through a range of motion. Range of motion was [0-130], with good stability throughout the range. The trials were then removed, and the tibia was finished. The bone was prepared with pulsatile lavage, and dried with a sponge. Cement was applied and the final prosthetics placed. Excess cement was removed during and after cement curing. A brief Betadine soak was performed. After confirming there was no extruded cement posteriorly, the final tibial insert was placed. The knee was copiously irrigated and the tourniquet deflated. Hemostasis was obtained with the Bovie cautery A drain was placed and brought out superolaterally. The capsule was closed with interrupted nonabsorbable suture. The subcutaneous layer was closed with barbed sutures, and the skin with a running 3-0 V-Lock suture and Surgical glue. An Aquacel Ag dressing was applied and the patient was taken to recovery having tolerated the procedure well. Complications: none Post-operative Condition: stable Disposition: Acute Care Plan for aftercare: The patient will be maintained on a standard total knee replacement protocol with weight bearing as tolerated. The patient will receive aspirin and sequential compression devices for DVT prophylaxis. The patient will be discharged home when safe for the home environment.
--- NOTE | 2021-05-21 10:54 | SUR.PREOP ---
Block start time [1043] . Monitoring initiated and maintained throughout procedure. Oxygen and medications given per anesthesiologist instructions. Patient remained stable throughout procedure, no adverse reactions noted. Block end time 1052[].
[2021-05-21] MEDS: fentaNYL 100 MCG/2 ML INJ IV (10:56)
[2021-05-21] MEDS: MIDAZOLAM 2 MG/2 ML VIAL IV (10:57)
[2021-05-21] MEDS: CEFAZOLIN 2 GM/20 ML SYRINGE IV ×2 (11:15→19:17)
[2021-05-21] MEDS: TRANEXAMIC ACID 1,000 MG VIAL 1000 MG INJ ×2 (11:20→12:53)
[2021-05-21] MEDS: BUPIVACAINE LIPOSOME 266 MG/20 ML VIAL INJ (11:34)
[2021-05-21] MEDS: BUPIVACAINE 0.25% (PF) 60 ML, EPINEPHrine 0.3 MG INJ (11:34)
[2021-05-21] MEDS: SODIUM CHLORIDE IRRIG SOLUTION 250 ML, POVIDONE-IODINE SPONGE STICKS 1 APPLIC IRR (11:35)
--- NOTE | 2021-05-21 11:42 | SUR.OPER ---
Supine on padded OR bed. Pillow under head, arms secured on padded armboards <90 degree abduction. Safety belt across torso. Non-operative leg secured with tape over blanket over lower leg. Operative leg secured in [employer] positioner. Foam padded brace at thigh of operative leg.
[2021-05-21] MEDS: VANCOMYCIN 1,000 MG VIAL 1000 MG TOP (12:46)
--- NOTE | 2021-05-21 14:21 | SUR.PHASEI ---
report to BASIA Ferrell filling in for BASIA Tinajero who was in on a procedure. Pt did well in transit but devleoped n/v once in the room. After his stomach was empty of the juice he consumed he stated he felt much better.
[2021-05-21] MEDS: LACTATED RINGERS 1,000 ML 100 ML IV (14:37)
[2021-05-21] MEDS: ONDANSETRON 4 MG/2 ML INJ IV (17:02)
--- NOTE | 2021-05-21 17:39 | PT.IIE ---
Current Diagnoses Unilateral primary osteoarthritis, right knee (05/21/21) Surgery Performed Operation Date: 05/21/21 11:30 Actual Procedures p Total Knee Arthroplasty(Right) - Nicky Cardenas MD Surgical History (Last Reviewed 05/21/21 @ 09:46 by Sanjeev Helms, RN) Anesthesia Status post arthroscopy (~1984) Status post knee surgery (~1999) Medical History (Last Reviewed 05/21/21 @ 09:45 by Sanjeev Helms, BASIA) Chronic back pain H/O intravenous drug use in remission Hepatitis B Hepatitis C Learning disability Mallet finger of left hand Osteoarthritis of both knees Psoriasis PTSD (post-traumatic stress disorder) Sinus congestion Tinea cruris Vision disorder Physical Therapy Inpatient Evaluation/Re-Eval M1 PT/OT-IP Prior Functional Status Start: 05/21/21 17:05 Freq: NEEDED Status: Active Protocol: Document 05/21/21 17:39 AW (Rec: 05/21/21 17:59 AW [id number]) Medical Review Prior Functional Status Medical History Reviewed Yes Communication WNL. Pt is able to make needs known. Mobility and Gait Pt reports independent mobility without assistive device typically but began using crutches recently as knee pain worsened. Activities of Daily Living and IADL's Independent. 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 Prior Functional Level (Other details) Pt has psoriasis and had bacterial infection which delayed his original surgery. Social History Household Members none Living Arrangements RV Number of Floors (Floors) One Floor Number of Stairs To Enter/Railing? 4 [place] at motor home with something to hold on to at each level. Home Environment High Toilet,Walk in Shower Home Equipment Crutches Employment Status Retired Additional Social History Comment Pt lives in a motor home [place]. He plans to spend 2 nights at a local hotel at discharge. 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 Details above refer to motor home. No stairs at hotel. Pt states his friend, Malik, will take him to the hotel and will eventually drive him back to his motor home and will be able to assist with stairs when he gets there. Pt states FWW would not fit or work in his motor home and he prefers crutches since he has a lot of experience with them. M2 PT-IP Current Condition Start: 05/21/21 17:05 Freq: NEEDED Status: Active Protocol: Document 05/21/21 17:39 AW (Rec: 05/21/21 17:59 AW [id number]) Physical Therapy Current Condition Current Condition Evaluation Date 05/21/21 Treatment Diagnosis R TKA; impaired mobility and gait Onset Date 05/21/21 M3 PT-IP Subjective Start: 05/21/21 17:05 Freq: NEEDED Status: Active Protocol: Document 05/21/21 17:39 AW (Rec: 05/21/21 17:59 AW [id number]) Subjective Physical Therapy Visit Type Type Initial Evaluation Visit Start Time 17:08 Visit Stop Time 17:39 Total Visit Minutes 31 Notes RN reports pt has vomited twice and has not voided yet. Physical Therapy Visit Comments Patient Comments I want to leave today because I'm worried it'll cost me $ 400 to stay the night and I'd rather be at the hotel. Patient Goals Pt hopes to leave [facility] but is concerned about picking up prescription medications. Therapy Pain Assessment Pain When Pain Assessed During Mobility Pain Present Pain Present Pain Reported Location right knee Intensity 2 Scale Used Numeric (0 - 10) Pain Management Techniques Apply Cold,Elevation, Modification of Treatment M4 PT-IP Mobility and Gait Start: 05/21/21 17:05 Freq: NEEDED Status: Active Protocol: Document 05/21/21 17:39 AW (Rec: 05/21/21 17:59 AW [id number]) PT-Bed Mobility Assessment Supine to Sit Supine to Sit Standby Assistance Scooting Scooting to Edge of Bed Standby Assistance PT-Transfer Assessment Sit to and From Stand Sit to and from Stand Standby Assistance,Contact Guard Assistance,Use of Upper Extremities Equipment Transfer Assistive Device Gait Belt,Front Wheeled Walker ,Axillary Crutches Orthotic/Prosthetic Devices or Brace: No Transfers Transfer Destination Chair Transfer Technique pt amb with FWW and with crutches Transfer Ability Level of Assist Contact Guard Assistance Comments Mobility Comments Pt was lying in bed as PT arrived and expressed concern about cost of staying overnight. BP was 110/76 HR 56 . From flat bed, pt sat up on left EOB SBA and stood CGA, using FWW to ambulate around the room and into the hallway ~100 feet SBA. On return to the room, pt reported lightheadedness. BP was 114/63 HR 73. Pt reported symptoms abating. He stood again with crutches CGA and ambulated in the halls 120 feet to the stairs CGA with crutches, completed stair assessment, and returned to the room denying symptoms but appearing flushed with cool clammy skin . VS were stable: BP 109/66 HR 55. Pt was left in the chair with ice pack applied to right knee, call light in reach, and crutches stored across the room. Pt agreed to call for mobility assist. Gait Assessment Gait Gait Assistance Required: Standby Assistance,Contact Guard Assist Distance (Feet) 240 Able to Maintain Weight Bearing Status Yes During Gait Assistive Devices Assistive Device Gait Belt,Front Wheeled Walker ,Axillary Crutches Orthotic/Prosthetic Devices or Brace: No Gait Deviations General Gait Pattern Decreased Feet Clearance, Flexed Trunk,Step-to Gait Factors Limiting Gait Function Factors Limiting Gait Function Decreased Strength,Pain,Poor Balance,Poor Safety Awareness Comments Gait Comments See mobility comments for details. SBA with FWW, CGA with axillary crutches. Pt has crutches set slightly too high. Educated pt on potential for brachial plexus injury but pt states he is used to crutches the way they are and not open to adjustment. Stair Climbing Assessment Evaluation Level of Assist On Stairs Contact Guard Assistance,1 Person Assistance Devices Stair Climbing Assistive Devices Axillary Crutches Technique/Endurance Stair Climbing Direction Descend Stair Climbing Technique Step to Step Number of Steps Climbed 3 Query Text: Stair Climbing Set # Repetitions (reps) 2 Comments Stair Climbing Comments Pt used axillary crutches only to ascend and descend, requiring CGA. PT-Balance Assessment Sitting Balance and Reactions Static Sitting Balance Ability Normal Dynamic Sitting Balance Ability Normal Standing Balance and Reactions Static Standing Balance Ability Good Dynamic Standing Balance Ability Fair Device Used FWW, crutches M5 PT-IP Objective Assessments Start: 05/21/21 17:05 Freq: NEEDED Status: Active Protocol: Document 05/21/21 17:39 AW (Rec: 05/21/21 18:08 AW [id number]) Orientation Orientation/Cognition Level of Alertness Alert Orientation Name,Day of Week,Place, Situation Language Function Ability No Deficits Noted Safety Awareness Decreased Safety Awareness Gross Range of Motion Lower Extremity ROM Assessment Right Impaired Strength Lower Extremity Strength Assessment Right Impaired Hip 4/5 Knee 3/5 Ankle 4/5 Comments Strength Comments LLE grossly 4+/5 Sensation Assessment Sensation Gross Sensation WNL Comments Sensation Comments Pt denies numbness in BLE. M6 PT-IP Treatment Start: 05/21/21 17:05 Freq: NEEDED Status: Active Protocol: Document 05/21/21 17:39 AW (Rec: 05/21/21 18:08 AW [id number]) Physical Therapy Treatment Exercises Exercises Ankle Pumps,Quad Sets,Heel Slides Education Education Provided Precautions,Weight Bearing Status,Post-Op Packet,Safety Other Treatments Other Treatment Performed Educated pt on recommendation for FWW at this time but pt states only crutches will work in his motor home. Educated pt on WB status, safe use of assistive device, and recommendation for CGA to navigate stairs. M7 PT-IP Assessment and Plan Start: 05/21/21 17:05 Freq: NEEDED Status: Active Protocol: Document 05/21/21 17:39 AW (Rec: 05/21/21 18:08 AW [id number]) PT Summary Assessment and Plan Potential Rehabilitation Potential Good Status of Condition at Evaluation Unstable Summary Impairments Pain,ROM,Strength,Balance,Bed Mobility,Transfers,Gait Assessment Summary Bear is a 71 yo man seen for PT evaluation on POD0 following R TKA. He reports independent mobility at baseline but states he has a lot of experience with crutches related to prior injuries. On assessment, pt states FWW will not work for his motor home and he prefers crutches. Pt required SBA for ambulation with FWW and CGA for ambulation with crutches. Pt perseverated on cost of staying overnight. PT educated pt extensively on weightbearing status and need for mobility assist - especially with crutches. Pt intends to discharge to a local hotel where he is familiar with the front office clerk staff who will be able to provide some level of assist. PT recommends continued acute PT to progress gait and stair training as anesthesia wears off. Anticipate pt will be safe to discharge to hotel for a few night and then to motor home with assist once medically stable. Pt will need outpatient PT to progress ROM , strength, and mobility independence. Goals Bed Mobility Goal Independent Transfer Goal Independent,Crutches Gait Goal Independent,Crutches Gait Distance 250 Other Goals - up/down 4 steps with axillary crutches SBA Days to Meet Goals 2 Frequency of Treatment Frequency Of Treatment Twice a Day Treatment Plan Physical Therapy Treatment Plan Bed Mobility Training,Transfer Training,Gait Training, Therapeutic Exercise,Balance Retraining,Post Op Education, Discharge Planning,Hot or Cold Pack Other Recommendations and Next Treatment ther ex for ROM; gait and Focus stair training with axillary crutches (or FWW if unsafe with crutches) Weight Bearing Status Weight Bearing Status Weight Bear as Tolerated Allowed Weight Bearing Amount (enter % WBAT RLE or #) (%) Recommendations To Nursing Amount of Assist Needed 1 Person Assist Discharge Recommendations PT Discharge Recommendations Home with Assistance, Outpatient PT Transportation Needs at Discharge Private Vehicle
[2021-05-21] MEDS: ONDANSETRON 4 MG ODT PO (20:22)
[2021-05-21] MEDS: OXYCODONE IR 5 MG TABLET PO (22:32)
[2021-05-22 00:36] VITALS: BP 134/75; PULSE 86; RESP 16; O2SAT 96
[2021-05-22] MEDS: IBUPROFEN 400 MG TABLET PO ×3 (01:24→08:51)
[2021-05-22] MEDS: LACTATED RINGERS 1,000 ML 100 ML IV (01:24)
--- NOTE | 2021-05-22 01:39 | PC.NURSE ---
Addendum entered by Fay Khan R.N. 05/22/21 07:01: Pt able to void larger amounts but still retains approx 200-300 mL urine post-void. Original Note: Sudden onset emesis x1 at start of shift, approx 300 mL. No associated nausea. Given SL zofran as precautionary measure. Refused PO night meds citing inability to keep water down. Diet AAT, able to consume crackers and applesauce at approx 0030 w/ no further vomiting. Pt able to urinate small amounts. Bladder scan at 2300 revealed >600 mL residual. Informed pt of policies & procedures re:urine retention & straight cath. Pt adamantly refused straight cath. Pt educated on importance of appropriate urination and dangers of retention. Pt verbalized understanding. Continues to refuse cath and has minimal urine output w/ retention. Will continue to monitor.
[2021-05-22] MEDS: CEFAZOLIN 2 GM/20 ML SYRINGE IV (03:54)
[2021-05-22 04:38] VITALS: BP 134/79; PULSE 93; RESP 18; TEMP 37.1; O2SAT 95
[2021-05-22] MEDS: OXYCODONE IR 5 MG TABLET PO (05:51)
[2021-05-22 06:16] LABS: Hematocrit 35.4 % (41-53)
[2021-05-22 08:15] VITALS: BP 125/79; PULSE 89; RESP 18; TEMP 37.1; O2SAT 95
--- NOTE | 2021-05-22 09:35 | PT.IPTN ---
Current Diagnoses Unilateral primary osteoarthritis, right knee (05/21/21) Surgery Performed Operation Date: 05/21/21 11:30 Actual Procedures p Total Knee Arthroplasty(Right) - Nicky Cardenas MD Physical Therapy Treatment Note M2 PT-IP Current Condition Start: 05/21/21 17:05 Freq: NEEDED Status: Discharge Protocol: Document 05/22/21 09:15 SP (Rec: 05/22/21 17:33 SP [id number]) Physical Therapy Current Condition Current Condition Evaluation Date 05/21/21 Treatment Diagnosis R TKA; impaired mobility and gait Onset Date 05/21/21 M3 PT-IP Subjective Start: 05/21/21 17:05 Freq: NEEDED Status: Discharge Protocol: Document 05/22/21 09:15 SP (Rec: 05/22/21 17:33 SP [id number]) Subjective Physical Therapy Visit Type Type Treatment Note Visit Start Time 09:15 Visit Stop Time 09:35 Total Visit Minutes 20 Number of DRAFTER CIVIL (CAD) Visits 1 Physical Therapy Visit Comments Patient Comments Pt willing to work with therapy, complete stair mgt and hallway gait. Patient Goals Pt wanting to [facility] days then return to with assist of friend Malik for transportation and support on stairs as needs. The [facility] mgt is friend of his and will assist as needed at [facility]. Therapy Pain Assessment Pain When Pain Assessed During Mobility Pain Present Pain Present Pain Reported Location right knee Intensity 2 Scale Used Numeric (0 - 10) Pain Management Techniques Re-positioning,Timing of Activity with Medications M4 PT-IP Mobility and Gait Start: 05/21/21 17:05 Freq: NEEDED Status: Discharge Protocol: Document 05/22/21 09:15 SP (Rec: 05/22/21 17:33 SP [id number]) PT-Transfer Assessment Sit to and From Stand Sit to and from Stand Independent,Standby Assistance ,Use of Upper Extremities Equipment Transfer Assistive Device Gait Belt,Axillary Crutches Orthotic/Prosthetic Devices or Brace: No Transfers Transfer Destination Bed Transfer Technique pt amb with crutches Transfer Ability Level of Assist Independent,Standby Assistance ,Use of Upper Extremities Comments Mobility Comments Pt was seated at EOB with nurse in room reviewing DC paperwork when arrived. Pt completed sit>stand and gait Mod I with use of B axillary crutches, progressed gait around nursing station 2- 4pt gait cued for slower pacing for safety with improved carryover self corrections approx 240 ft total, complete 3 step stair mgt with R HR and crutches in L UE step to patternging CG- SBA, stable no LOB. Pt returned to room seated at EOB with call light and all needs before left. DRAFTER CIVIL (CAD) notified FILTER PRESS TENDER HEAD pt is ready for DC and ableto go when medically cleared and pt contacted friend to pick him up. Gait Assessment Gait Gait Assistance Required: Independent,Standby Assistance Distance (Feet) 240 Able to Maintain Weight Bearing Status Yes During Gait Assistive Devices Assistive Device Gait Belt,Axillary Crutches Orthotic/Prosthetic Devices or Brace: No Gait Deviations General Gait Pattern Antalgic Factors Limiting Gait Function Factors Limiting Gait Function Decreased Strength,Pain Comments Gait Comments See mobility comments Stair Climbing Assessment Evaluation Level of Assist On Stairs Independent,Standby Assistance Devices Stair Climbing Assistive Devices Axillary Crutches Technique/Endurance Stair Climbing Direction Descend Stair Climbing Technique Step to Step Number of Steps Climbed 3 Stair Climbing Set # Repetitions (reps) 2 Comments Stair Climbing Comments see mobility comments PT-Balance Assessment Sitting Balance and Reactions Static Sitting Balance Ability Normal Dynamic Sitting Balance Ability Normal Standing Balance and Reactions Static Standing Balance Ability Good Dynamic Standing Balance Ability Good Device Used crutches M5 PT-IP Objective Assessments Start: 05/21/21 17:05 Freq: NEEDED Status: Discharge Protocol: Document 05/21/21 17:39 AW (Rec: 05/21/21 18:08 AW [id number]) Orientation Orientation/Cognition Level of Alertness Alert Orientation Name,Day of Week,Place, Situation Language Function Ability No Deficits Noted Safety Awareness Decreased Safety Awareness Gross Range of Motion Lower Extremity ROM Assessment Right Impaired Strength Lower Extremity Strength Assessment Right Impaired Hip 4/5 Knee 3/5 Ankle 4/5 Comments Strength Comments LLE grossly 4+/5 Sensation Assessment Sensation Gross Sensation WNL Comments Sensation Comments Pt denies numbness in BLE. M6 PT-IP Treatment Start: 05/21/21 17:05 Freq: NEEDED Status: Discharge Protocol: Document 05/22/21 09:15 SP (Rec: 05/22/21 17:33 SP [id number]) Physical Therapy Treatment Education Education Provided Precautions,Weight Bearing Status,Post-Op Packet,Safety Other Treatments Other Treatment Performed Verbally reviewed post op ex, good recall discussed not progress >90 deg knee flexion for safety healing. M7 PT-IP Assessment and Plan Start: 05/21/21 17:05 Freq: NEEDED Status: Discharge Protocol: Document 05/22/21 09:15 SP (Rec: 05/22/21 17:33 SP [id number]) PT Summary Assessment and Plan Potential Rehabilitation Potential Good Status of Condition at Evaluation Unstable Summary Impairments Pain,ROM,Strength,Balance,Bed Mobility,Transfers,Gait Progress Towards Goals Progressing Toward Goals Assessment Summary Pt Mod I with all mobility using axillary crutches 2-4 pt gait, cued x2 for slower pacing for safety. Completed stair mgt w/ R HR and axillary crutches CG>SBA, stable for safe return home when able. Pt is ok [facility] his plan for couple days then return to his RV when medically cleared. His friend will provide transportation and assist if needed for stair mgt when returns to . Pt stated is set up with outpt PT . Goals Bed Mobility Goal Independent Transfer Goal Independent,Crutches Gait Goal Independent,Crutches Gait Distance 250 Other Goals - up/down 4 steps with axillary crutches SBA Days to Meet Goals 2 Frequency of Treatment Frequency Of Treatment Twice a Day Treatment Plan Physical Therapy Treatment Plan Bed Mobility Training,Transfer Training,Gait Training, Therapeutic Exercise,Balance Retraining,Post Op Education, Discharge Planning,Hot or Cold Pack Other Recommendations and Next Treatment ROM, ther ex, gait w/ B Focus crutches progress 1 crutch when safe. Weight Bearing Status Weight Bearing Status Weight Bear as Tolerated Allowed Weight Bearing Amount (enter % WBAT RLE or #) (%) Recommendations To Nursing Amount of Assist Needed Independent,Standby Assistance Discharge Recommendations PT Discharge Recommendations Home with Assistance, Outpatient PT Transportation Needs at Discharge Private Vehicle
--- NOTE | 2021-05-22 10:26 | PC.NURSE ---
Pt recieved discharge order early this morning. Pt anxious to leave. Did work w/PT prior to D/C Pt discontinued his own HL Given discharge instructions & escorted by staff via W/C to waiting vehicle D/C'd in satisfactory post op status.
--- NOTE | 2021-05-22 11:01 | PM.DS.1 ---
History of Present Illness History of Present Illness Date Patient Seen: 05/22/21 Time Patient Seen: 08:35 Chief complaint: Right knee pain Narrative: Pain is mild. Denies fever or chills. No nausea or vomiting. Discharge Providers Provider Discharge Date: 05/22/21 Primary care physician: Toma Bailey DO Consults: 05/21/21 06:00 Consult to Anesthesiology Routine Comment: Consulting Provider: Anesthesiologist Reason for consultation: Regional block for post operative pain control 05/21/21 14:09 Consult to Discharge Planning Routine Comment: Consult to Physical Therapy Evaluate & Treat Comment: Physician Instructions: postop TKA protocol Consult to Respiratory Therapy Evaluate & Treat Comment: Physician Instructions: Evaluate and treat Discharge provider: Dann Lau PA-C Summary Hospital Course Discharge Diagnosis: Right knee osteoarthritis with history of instability and ACL reconstruction Hospital Course: Right total knee arthroplasty Same procedure as scheduled: Yes Indications: The patient has had progressively worsening right knee pain with radiographic changes consistent with arthritis. Non-operative management has failed and the patient has requested total knee replacement. The risks, benefits and alternatives to surgery were discussed with the patient prior to proceeding. Risks discussed included, but were not limited to, failure to relieve pain, stiffness, infection, nerve damage, deep venous thrombosis, pulmonary embolism, stroke, coma, heart attack, permanent paralysis and , as well as the potential need for eventual revision of the prosthetic. Surgeon: Nicky Cardenas Setter Automatic Spinning Lathe: Dann Lau Anesthesia Type: General and Peripheral nerve block Operative Notes Findings: Severe right knee osteoarthritis, acceptable stability Closure Type: primary Specimen(s): none sent Prosthetic devices, grafts, tissues, transplants, or devices: [employer] BCS 2 size 8 femur, size 7 tibia, +9 poly, 35 oval patella Applied: drain(s) Estimated Blood Loss (mL): 250 Blood products transfused: none Tourniquet time (min): 83 Patient admitted to the hospital for right total knee arthroplasty. Patient consented to the same. Patient taken to the operating room on May 21, 2021. Patient back in his room recovering well as in stable condition. Patient will be discharged home today in stable condition. Exam Vital Signs (past 8 hours): - 05/22/21 04:38 05/22/21 08:15 Temperature 98.7 F 98.7 F Pulse Rate 93 H 89 Respiratory Rate 18 18 Blood Pressure 134/79 125/79 Pulse Oximetry 95 95 Oxygen Delivery Method Room Air Oxygen Flow Rate 0 Narrative Exam Narrative: 71-year-old male in no apparent distress. Dressing is Clean, dry, intact.. Motor functions intact bilateral lower extremities. Sensation grossly intact to light touch bilateral lower extremities. Objective Labs Result Diagrams: 05/22/21 05:48 Labs: Laboratory Results - last 24 hr 05/22/21 05:48 Hgb 12.0 L Hct 35.4 L PFSH Medical History Chronic back pain H/O intravenous drug use in remission Hepatitis B Hepatitis C Learning disability Mallet finger of left hand Osteoarthritis of both knees Psoriasis PTSD (post-traumatic stress disorder) Sinus congestion Tinea cruris Vision disorder Surgical History Anesthesia Status post arthroscopy (~1984) Status post knee surgery (~1999) Social History marital status: household members: none lives independently: Yes occupational status: other (retired) Smoking Status: Former smoker Smokeless tobacco user: chewing tobacco alcohol intake: former substance use type: former substance user (IV, multiple substances) and marijuana Discharge Assessment & Plan Assessment and Plan Assessment: Patient progressing as expected status post right total knee arthroplasty Plan of Treatment: Discharge home today in stable condition Discharge Plan Discharge Plan Patient Disposition: Home Discharge orders & Medications Discharge Orders: Discharge (Order); Ordered 05/22/21 Ordered By: Dann Lau Prescriptions: New acetaminophen 325 mg Tablet 650 mg PO TID Qty: 60 0RF aspirin 81 mg Tablet,Delayed Release (Dr/Ec) 81 mg PO BID Qty: 60 0RF docusate sodium 100 mg Capsule 100 mg PO BID Qty: 20 0RF oxycodone 5 mg Tablet 5 mg PO Q3HR PRN (Reason: Pain, Moderate (4-6)) Qty: 60 0RF Continued Otezla 30 mg tablet 30 mg PO BID 0RF meloxicam 15 mg tablet See Rx Instructions .ROUTE .COMPLEX Qty: 90 3RF Dose Instruction: TAKE 1 TABLET BY MOUTH DAILY Rx Instructions: TAKE 1 TABLET BY MOUTH DAILY Follow up/Referrals: Toma Bailey DO [Primary Care Provider] - Nicky Cardenas MD [Physician] - (2 weeks) Diet/Activity/Treatments Diet: Diet as Tolerated Activity: Weight-bearing as tolerated. Cold/Heat Therapy: Ice as needed Skin/Wound/Dressing Care Report to your healthcare provider any signs of infection, such as:: chills, fever, increased pain, unusual drainage and unusual redness Dressing: Keep dressing clean and dry Visit Report/Discharge Packet Instructions: DI for Knee Replacement, How to Prevent Falls, DI for Prescription Opioid Use Stand Alone Forms: Surgery Discharge Discharge Data Primary Care Provider: Toma Bailey Attending Provider: Nicky Cardenas
--- NOTE | 2021-05-22 11:56 | CM.DANOTE ---
DCP: Case received, EMR reviewed and met with patient. Introduced self and role. Was able to obtain information regarding patient's baseline activity status prior to surgery, as well as current living situation. DCP assessment completed with information currently available. Patient is a 71 year old male who admitted yesterday morning to the care of the orthopedic team. PCP: Dr. Bailey. P[facility]: [facility]Med[facility]. Patient came to the hospital via private vehicle for a surgical procedure. Patient had right knee arthroplasty. Patient has history of osteoarthritis. According to notes, patient resides in a motor home alone, but is planning on staying at a local motel, and desk staff is to assist. Met with patient in his room. He is pleasant. alert and oriented. Patient does reside alone, he worked at [employer] here in [place]. He is planning on staying there at discharge, and has friend that will help out as needed. He has crutches, stated, they are easier to use in a motor home, not a walker. P: Patient has discharge orders for home today. He will work again with P.T. prior to discharge. Candace Ryder RN./Clamp Operator Discharge Planning/Care Management CM Discharge Assessment Start: 05/22/21 11:42 Freq: Status: Active Protocol: Document 05/22/21 11:43 (Rec: 05/22/21 11:56 [id number]) Discharge Planning Assessment Assigned Seo Assistant Candace Ryder RN/Clamp Operator Advance Directives? No History Provided By Patient,Medical Record Prior Living Arrangements RV Household Members none Type of transporation used prior to Drives own vehicle admit Independent with ADL's Yes Is patient alert and oriented? Yes Caregiver for Another No Patient/Family Preference OP PT Therapy Barriers to Discharge No Comment Patient has a friend that will be able to assist, and he will be staying in local motel before he returns to his RV. Discharge Plan Home Transportation Arrangement Friend Referrals Initiated None needed Whiteboard Updated in Patient Room with Yes name and ext. # of Seo Assistant Review Status In Process Next Review Type Continued Stay Review Pre-Anesthesia Assessment Start: 04/30/21 07:23 Freq: Status: Discharge Protocol: Document 05/01/21 09:15 CAB (Rec: 04/30/21 07:38 CAB [id number]) Pre-Anesthesia Assessment Patient Information Reviewed Via Phone Assessment Assessment Completed With Patient Diagnostic Results BMP/CMP,CBC,EKG Comment Labs/EKG @ [facility], COVID screen- needs to schedule Primary Care Provider Toma Bailey Seen Specialist in Last 12 Months Yes Specialist Seen Membership Coordinator,Orthopedist, Other Primary Language [place] Acquisitions Editor Required No Height 5 ft 11 in Weight 203 lb Body Mass Index (BMI) 28.3 Hearing Ability Hard of Hearing Visual Assist Magnifying Glass Dentition Type Teeth, Natural Present,Teeth, Missing Barriers to Learning Developmental delay Comment 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 Hx Anesthesia Reactions No Hx Family Anesthesia Reaction No Hx Malignant Hyperthermia No Hx Blood Transfusions No Anesthesia Review Requested No alcohol intake former Alcohol Intake Frequency Other: Stopped approx 3 years ago, hx of abuse Smoking Status Former smoker Tobacco type smokeless tobacco how long ago did patient quit smoking Quit years ago, does chew tobacco Substance Use Type does not use,former substance user Pain Present Pain Reported Musculoskeletal Symptoms Abnormal Gait,Difficulty Walking,Joint Pain,Limited Range of Motion Patient is completely paralyzed or No completely immobile Prosthesis or Orthotic Device Crutches Comment Pt states Dr. Ronald fernandez pt using crutches in place of a walker Is patient on oxygen? No Does patient have WYATT/SOB No Hx Sleep Apnea No Currently Taking a Beta Vaishali No Hx Chest Pain No Hx SOB No Hx Syncope or Dizziness No Anti-Coagulant Therapy No Has a Hearings Reporter No Cardiac Testing No Hx Pacemaker/ICD No Pacemaker Rep Required? No Cardiac Clearance Received Not Applicable Diet Type At Home Regular dysphagia No Bladder Pattern Nocturia Urinary Catheter Present No Hx Urinary Self Catheterization No Diabetes No Hx Drug Resistant Organism No Presence of External or Internal Medical No Devices Have you had any close contact with No someone diagnosed with COVID-19? Received a COVID vaccine? Yes Received all doses? Yes Marital Status Lives With none Prior Living Arrangements RV Support System Friend(s) Does the Patient Have Assistance After Yes: Pt will stay at a hotel Surgery initially at [place] Patient Discharge Plan Description Other Comment Pt advised he will be same day surgery per surgeon Feels Safe in Current Environment Yes Been Physically Hurt or Threatened By a No Person in Current Environment Do you have thoughts of harming yourself None or others? Are you currently considering suicide? No Do you have a plan to hurt yourself or No Plan others? Do You Have Any Spiritual Beliefs That No May Affect Your HC Choices? Do You Have Any Cultural Practices That No May Affect Your HC Choices? Comment Atheist Who Can We Speak to About Patient's Care Family, friends Identifying Code for Release of Patient Declines to issue Information Health Care Proxy/Next of Kin I don't have anyone Emergency Contact Name Malik Springer (friend) Emergency Contact Advance Directives? No Power of Search Marketing Specialist No PAC Instructions Durable medical equipment, Medications to take/avoid, Nasal antibiotic,No ETOH/ petroleum product on skin DOS, NPO,Post-op transportation,Pre -surgical wash,Sensory aids, Sturdy shoes/comfortable clothes,Do not bring valuables and remove jewelry
== END 2021-05-22 09:15 | disposition home or self-care (01) ==
LOC: OR 09:24 → AC 09:25
PROVIDERS: PCP Family Medicine; Referring Provider Orthopaedic Surgery; Visit Provider Orthopaedic Surgery
PROC: 0SRC0JZ Replacement of Right Knee Joint with Synthetic Substitute, Open Approach (ICD-10-PCS; CPT 27447; principal; 2021-05-21 11:30)
DX: M17.11 Unilateral primary osteoarthritis, right knee (principal); G47.33 Obstructive sleep apnea (adult) (pediatric); Z87.891 Personal history of nicotine dependence
CPT/HCPCS: 27447; 64450; 73560; 85014; 85018; 97116; 97162; C1776; C9290; J0171; J0690; J2250; J2405; J2704; J3010

== ENCOUNTER 2021-06-06 18:22 | Emergency (ER) | payer MEDICARE, MEDICAID, SELFPAY ==
[2021-05-21 14:23] VITALS: BMI 28.5
[2021-06-06 18:31] VITALS: BP 115/104; PULSE 129; RESP 18; TEMP 36.6; O2SAT 99; BMI 28.5
--- NOTE | 2021-06-06 19:23 | ED_ITS ---
HPI - Abdominal Pain <Ruiz Frances PA-C - Last Filed: 06/06/21 19:59> General Chief Complaint: Abdominal Pain Stated Complaint: No BM, Extreme Pain Time Seen by Provider: 06/06/21 19:17 Source: patient Mode of arrival: Ambulatory History of Present Illness HPI narrative: Patient is a 71-year-old male presenting to the emergency department today for an evaluation constipation. Patient states that he a right total knee replacement performed 2 weeks ago and has been taking narcotic pain medication to help alleviate his discomfort. He states that over the past couple of days he has not been able the pass a bowel movement and has experienced abdominal discomfort due to his constipation. He states that he attempted to pass a bowel movement today but experienced increased pain when attempting to defecate. He denies fever, chills, chest pain, cough, shortness of breath, nausea, vomiting, diarrhea, dysuria, hematuria, numbness and tingling in the lower extremities, or any other concerning symptoms. No further concerns reports that this time. Related Data Home Medications Medication Instructions Recorded Confirmed apremilast 30 mg tablet (Otezla) 30 mg PO BID 07/20/20 05/21/21 Previous Rx's Medication Instructions Recorded meloxicam 15 mg tablet See Rx Instructions .ROUTE 01/01/21 .COMPLEX #90 tab acetaminophen 325 mg tablet 650 mg PO TID #60 tab 05/22/21 aspirin 81 mg tablet,delayed 81 mg PO BID #60 tab 05/22/21 release docusate sodium 100 mg capsule 100 mg PO BID #20 cap 05/22/21 oxycodone 5 mg tablet 5 mg PO Q3HR PRN #60 tab 05/22/21 docusate sodium 100 mg capsule 100 mg PO BID #20 cap 06/06/21 (Colace) sennosides 8.6 mg capsule (senna) 8.6 mg PO BID PRN #20 cap 06/06/21 Allergies Allergy/AdvReac Type Severity Reaction Status Date / Time No Known Drug Allergies Allergy Verified 05/21/21 12:54 Review of Systems <Ruiz Frances PA-C - Last Filed: 06/06/21 19:59> Constitutional Constitutional: Denies chills, Denies fatigue, Denies fever(s), Denies frequent falls, Denies lethargy and Denies weakness ENT Ears, Nose, Mouth, and Throat: Denies neck pain Cardiovascular Cardiovascular: Denies chest pain, Denies irregular heart rhythm, Denies lightheadedness, Denies palpitations, Denies dyspnea, Denies dyspnea on exertion and Denies orthopnea Respiratory Respiratory: Denies cough, Denies dyspnea, Denies dyspnea on exertion and Denies wheezing Gastrointestinal Gastrointestinal: Reports abdominal pain, Denies change in bowel habits, Reports constipation, Denies diarrhea, Denies nausea and Denies vomiting Genitourinary Genitourinary: Denies hematuria, Denies flank pain, Denies urinary incontinence and Denies urinary urgency Musculoskeletal Musculoskeletal: Denies back pain, Denies muscle weakness, Denies neck pain, Denies numbness and Denies tingling Integumentary/Breasts Skin/Breast: Denies pruritus, Denies erythema, Denies rash and Denies wounds Neurologic Neurologic: Denies frequent falls, Denies numbness, Denies tingling and Denies weakness Endocrine Endocrine: Denies fatigue and Denies palpitations Allergic/Immunologic Allergic/Immunologic: Denies wheezing Patient History <Ruiz Frances PA-C - Last Filed: 06/06/21 19:59> Medical History Chronic back pain H/O intravenous drug use in remission Hepatitis B Hepatitis C Learning disability Mallet finger of left hand Osteoarthritis of both knees Psoriasis PTSD (post-traumatic stress disorder) Sinus congestion Tinea cruris Vision disorder Surgical History Anesthesia Status post arthroscopy (~1984) Status post knee surgery (~1999) Social History marital status: household members: none lives independently: Yes occupational status: other (retired) Smoking Status: Former smoker Smokeless tobacco user: chewing tobacco alcohol intake: former substance use type: former substance user (IV, multiple substances) and marijuana Smoking Status: Former smoker alcohol intake frequency: 0-2 drinks per day Substance Use Type: does not use, former substance user and marijuana Exam <Ruiz Frances PA-C - Last Filed: 06/06/21 19:59> Narrative Exam Narrative: GENERAL: 71 year old patient appears stated age. Well-developed patient, in no acute distress. HEAD: Atraumatic. Normocephalic. EYES: Pupils equal round and reactive. Extraocular motions intact. No scleral icterus. No injection or drainage. ENT: Nose without bleeding, purulent drainage. Throat without erythema, tonsillar hypertrophy or exudate. Airway patent. NECK: Trachea midline. Non tender CARDIOVASCULAR: Regular rate and rhythm without murmurs, gallops, or rubs. RESPIRATORY: Clear to auscultation. Breath sounds equal bilaterally. No wheezes, rales, or rhonchi. GASTROINTESTINAL: Abdomen soft, non-tender, nondistended. EXTREMITIES: No edema or joint tenderness. BACK: Nontender without deformity or crepitance. No flank tenderness. NEURO: AOx3. SKIN: No rash or erythema of visible areas Initial Vital Signs Initial Vital Signs: Vital Signs Temperature 98 F 06/06/21 18:31 Pulse Rate 129 H 06/06/21 18:31 Respiratory Rate 18 06/06/21 18:31 Blood Pressure 115/104 H 06/06/21 18:31 Pulse Oximetry 99 06/06/21 18:31 <Sirena Li DO - Last Filed: 06/07/21 00:53> Initial Vital Signs Initial Vital Signs: Vital Signs Temperature 98 F 06/06/21 18:31 Pulse Rate 129 H 06/06/21 18:31 Respiratory Rate 18 06/06/21 18:31 Blood Pressure 115/104 H 06/06/21 18:31 Pulse Oximetry 99 06/06/21 18:31 Course <Ruiz Frances PA-C - Last Filed: 06/06/21 19:59> Course Course Narrative: Cholecystitis to the emergency department. Patient states that he was able to have a large bowel movement in the emergency department states he is feeling significantly better. He is now denying abdominal pain and states he would like to be discharged home. Vital Signs Vital signs: Vital Signs - 8 hr 06/06/21 18:31 Temperature 98 F Pulse Rate 129 H Respiratory Rate 18 Blood Pressure 115/104 H Pulse Oximetry 99 <Sirena Li DO - Last Filed: 06/07/21 00:53> Vital Signs Vital signs: Vital Signs - 8 hr 06/06/21 18:31 Temperature 98 F Pulse Rate 129 H Respiratory Rate 18 Blood Pressure 115/104 H Pulse Oximetry 99 MDM - Abdominal Pain <Ruiz Frances PA-C - Last Filed: 06/06/21 19:59> [facility] Narrative Medical decision making narrative: To consider ischemic colitis versus is small-bowel obstruction versus is constipation versus diverticulitis versus diverticulosis. Overall physical examination and history are reassuring. Discussed possibility of obtaining imaging with patient to rule out acute abnormalities, however patient states that since he is feeling better and is able to pass a bowel movement in the emergency department he would like to forego imaging. Discussed risk and benefits of foregoing imaging with patient, however he states he would like to be discharged home at this time with prescriptions to help avoid constipation. Strict return precautions were discussed with the patient prior to discharge. At this time patient stable and ready for discharge. Discharge Plan Departure Patient Disposition: Home Clinical Impression: Abdominal pain, Constipation Instructions: DI for Constipation Activity Restrictions/Additional Instructions: *You have been diagnosed with abdominal pain, constipation *What to do: *Please continue to take your regular medications as directed. [X] New medication prescriptions sent to your pharmacy: [facility] - Colace Senna [ ] New medication written as a paper prescription [ ] No new medications given *Please follow up with your primary care provider in 2-3 days, call for an appointment. Let them know you were seen in the Emergency Department and that we ask that you be seen in follow up. We will electronically transmit a record of today's note if your PCP is in our system *If you do not have a primary care provider please contact the [facility] Resource line at [phone]. They will ask some questions about your medical history and help get you set up with a doctor in the community. *Return to Emergency Department if you should have any new, worsening or concerning symptoms, such as fever greater than 101 F, shaking chills, worsening pain, persistent vomiting or other bothersome symptoms. Prescriptions: New docusate sodium [Colace] 100 mg capsule 100 mg PO BID Qty: 20 0RF senna 8.6 mg capsule 8.6 mg PO BID PRN (Reason: constipation) Qty: 20 0RF No Action Otezla 30 mg tablet 30 mg PO BID 0RF meloxicam 15 mg tablet See Rx Instructions .ROUTE .COMPLEX Qty: 90 3RF Dose Instruction: TAKE 1 TABLET BY MOUTH DAILY Rx Instructions: TAKE 1 TABLET BY MOUTH DAILY acetaminophen 325 mg Tablet 650 mg PO TID Qty: 60 0RF aspirin 81 mg Tablet,Delayed Release (Dr/Ec) 81 mg PO BID Qty: 60 0RF docusate sodium 100 mg Capsule 100 mg PO BID Qty: 20 0RF oxycodone 5 mg Tablet 5 mg PO Q3HR PRN (Reason: Pain, Moderate (4-6)) Qty: 60 0RF Referrals: Toma Bailey DO [Primary Care Provider] - <Sirnea Li DO - Last Filed: 06/07/21 00:53> Cosign ED Attending Cosignature Attestation: I was immediately available in the department for consultation. Documentation has been reviewed. I agree with assessment and plan.
== END 2021-06-06 19:40 | disposition home or self-care (01) ==
PROVIDERS: Emergency Provider Physician Assistant; PCP Family Medicine
DX: K59.00 Constipation, unspecified (principal); Z87.891 Personal history of nicotine dependence
CPT/HCPCS: 99281

== ENCOUNTER → 2021-12-24 14:48 | Outpatient (CLI) | payer MEDICARE, MEDICAID, SELFPAY ==
[2021-05-21 14:23] VITALS: BMI 28.5
--- NOTE | 2021-12-24 14:49 | DI.US.S_ITS ---
PROCEDURE: US EXTREMITY NONVASC UPPER LT INDICATIONS: mass posterior distal humerus TECHNIQUE: Real-time scanning was performed of the left upper arm, with image documentation. COMPARISON: None. FINDINGS: Focused ultrasound examination of left upper arm over posterior aspect of distal humerus shows a 2.3 x 0.6 x 1.9 cm solid-appearing structure within soft tissue isoechoic to adjacent subcutaneous fat tissue likely represent lipoma. No internal vascularity is seen. Additional examination of left proximal forearm at patient's reported area of 2nd palpable lump shows no soft tissue mass or fluid collection. IMPRESSION: Finding likely represent a 2.3 x 0.6 x 1.9 cm lipoma within soft tissue over dorsal aspect of distal upper arm. Dictated by: Law Hull M.D. on 12/24/2021 at 16:37 Approved by: Law Hull M.D. on 12/24/2021 at 16:44
--- NOTE | 2021-12-24 14:49 | DI.US.S_ITS ---
PROCEDURE: US EXTREMELY NONVASC UPPER RT INDICATIONS: mass proximal medial forearm TECHNIQUE: Real-time scanning was performed of the right upper arm, with image documentation. COMPARISON: [facility], US, US EXTREMITY NONVASC UPPER LT, 12/24/2021, 15:02. FINDINGS: 2.3 x 0.4 x 1.6 cm solid-appearing structure is noted in posterior medial right forearm at patient's reported area of palpable lump and is isoechoic to adjacent subcutaneous fat. No internal vascularity is seen. IMPRESSION: Finding likely represent lipoma within soft tissue of right upper arm as above. Dictated by: Law Hull M.D. on 12/24/2021 at 16:45 Approved by: Law Hull M.D. on 12/24/2021 at 16:45
== END ==
PROVIDERS: PCP Family Medicine; Referring Provider Physician Assistant; Visit Provider Physician Assistant
DX: R22.32 Localized swelling, mass and lump, left upper limb (principal); R22.31 Localized swelling, mass and lump, right upper limb
CPT/HCPCS: 76882

== ENCOUNTER → 2023-10-08 11:27 | Outpatient (CLI) | payer MEDICARE, MEDICAID, SELFPAY ==
[2021-05-21 14:23] VITALS: BMI 28.5
[2023-10-08 16:34] LABS: Hepatitis B Surface Antigen NEGATIVE s/c (NEGATIVE)
[2023-10-08 16:51] LABS: Hep C Virus Ab w/Reflex Quant REACTIVE s/c (NEGATIVE)
[2023-10-10 01:09] LABS: Hepatitis B Surf Ab Qualitativ Non Reactive (.)
== END ==
PROVIDERS: PCP Family Medicine; Referring Provider Dermatology; Visit Provider Dermatology
DX: L40.0 Psoriasis vulgaris (principal); L40.59 Other psoriatic arthropathy
CPT/HCPCS: 36415; 86480; 86706; 86803; 87340; 87522

== ENCOUNTER → 2023-10-30 10:35 | Outpatient (CLI) | payer MEDICARE, MEDICAID, SELFPAY ==
[2021-05-21 14:23] VITALS: BMI 28.5
--- NOTE | 2023-10-30 10:53 | EKG_ITS ---
[id number] [address] Test Date: 2023-10-30 Pat Name: Bear Godwin Department: Room: Gender: Male Fire Control Assistant: SARI : 1950 Requested By: Order Number: [id number] Reading MD: Leonard Fuentes MD Measurements Intervals [place] Rate: 70 P: 15 HI: 136 QRS: 32 QRSD: 96 T: 20 QT: 384 QTc: 414 Interpretive Statements Normal sinus rhythm Electronically Signed On 10-30-2023 11:49:09 PDT by Leonard Fuentes MD
== END ==
PROVIDERS: PCP Family Medicine; Referring Provider Orthopaedic Surgery; Visit Provider Orthopaedic Surgery
DX: Z01.818 Encounter for other preprocedural examination (principal); Z01.812 Encounter for preprocedural laboratory examination; R73.9 Hyperglycemia, unspecified; N39.0 Urinary tract infection, site not specified
CPT/HCPCS: 93005; 93010

== ENCOUNTER → 2023-11-02 09:01 | Outpatient (CLI) | payer MEDICARE, MEDICAID, SELFPAY ==
[2021-05-21 14:23] VITALS: BMI 28.5
[2023-11-02 10:23] LABS: Hemoglobin A1C% w Est Avg Glu 5.4 % (4.0-6.0)
[2023-11-02 10:36] LABS: Add Manual Diff / Slide Review NO; Appearance Urine UA CLEAR; Basophils Absolute Auto 0 /uL (0-100); Basophils Percent Auto 0.2 % (0-2); Bilirubin Urine UA NEGATIVE (NEGATIVE); Color Urine UA YELLOW; Eosinophils Absolute Auto 100 /uL (0-450); Eosinophils Percent Auto 2.5 % (2-4); Glucose Urine UA NEGATIVE (Negative); Hemoglobin 13.8 g/dL (13.5-17.5); Ketones Urine UA NEGATIVE (NEGATIVE); Leukocyte Esterase Urine UA NEGATIVE (NEGATIVE); Lymphocytes Absolute Auto 1800 /uL (1100-4500); Lymphocytes Percent Auto 31.7 % (25-40); Mean Corpuscular HGB Conc 35.2 % (30-36); Mean Corpuscular Hemoglobin 32.5 PG (26-34); Mean Corpuscular Volume 92.2 fL (80-100); Monocytes Absolute Auto 500 /uL (0-900); Monocytes Percent Auto 8.4 % (3-14); Neutrophils Absolute Auto 3300 /uL (1500-7000); Neutrophils Percent Auto 57.2 % (50-75); Nitrite Urine UA NEGATIVE (Negative); Occult Blood Urine UA NEGATIVE (Negative); Platelet Count 243 X10^3/uL (150-400); Protein Urine UA NEGATIVE (Negative); Red Blood Cell Count 4.24 X10^6/uL (4.5-5.9); Red Cell Distribution Width 12.7 % (11.6-14.8); Specific Gravity Urine UA <=1.005 (1.000-1.035); White Blood Cell Count 5.8 X10^3/uL (4.5-11.0); pH Urine UA 6.5 (4.5-8.0)
[2023-11-02 10:40] LABS: BUN Creatinine Ratio 14.8 (6-22); Blood Urea Nitrogen 13 mg/dL (9-20); Calcium 9.3 mg/dL (8.4-10.2); Carbon Dioxide 27 mmol/L (22-32); Chloride 104 mmol/L (98-107); Estimated Glomerular Filt Rate > 60 mL/min (>60); Glucose 111 mg/dL (80-110); HEMOLYSIS < 15 (0-50); Potassium 4.4 mmol/L (3.4-5.1); Sodium 137 mmol/L (137-145)
[2023-11-02 10:43] LABS: Bacteria Urine Occasional (0-1); Culture Indicated Urine Cult Not Indicated; RBC Urine 0-1/HPF (0-5/HPF); Squamous Epithelial Cell Urine 1-5 /HPF (0-5/HPF); Urine Volume 10mL (spun); WBC Urine 0-1/HPF (0-5/HPF)
== END ==
PROVIDERS: PCP Family Medicine; Referring Provider Orthopaedic Surgery; Visit Provider Orthopaedic Surgery
DX: Z01.812 Encounter for preprocedural laboratory examination (principal); R73.9 Hyperglycemia, unspecified; N39.0 Urinary tract infection, site not specified
CPT/HCPCS: 36415; 80048; 81001; 83036; 85025

== ENCOUNTER 2023-12-22 07:29 | Day surgery (SDC) | payer MEDICARE, MEDICAID, SELFPAY ==
[2023-11-02 09:37] VITALS: BMI 28.5
[2023-12-17 13:58] VITALS: BMI 28.5
[2023-12-22] VITALS (14 sets, daily range): BP systolic 95–141; BP diastolic 68–97; PULSE 55–74; RESP 10–20; TEMP 36–36.9; O2SAT 94–100; BMI 29.0
--- NOTE | 2023-12-22 | DI.RAD.S_ITS ---
PROCEDURE: XR KNEE LT 1TO2V INDICATIONS: POST OP TOTAL KNEE LEFT TECHNIQUE: 2 view(s) of the knee acquired. COMPARISON: [facility], CR, XR KNEE RT 1TO2V, 05/21/2021, 13:27. FINDINGS: Bones: Patient is status post knee joint arthroplasty. Hardware components are in expected positions. Visualized bony structures are intact. Soft tissues: Overlying postoperative changes are noted. IMPRESSION: Expected post-operative appearance of a knee arthroplasty. Dictated by: Jay Sosa M.D. on 12/22/2023 at 16:20 Approved by: Jay Sosa M.D. on 12/22/2023 at 16:21
--- NOTE | 2023-12-22 07:52 | PM.PREOP ---
Pre-operative Note Interval Note History & Physical reviewed/Exam performed by Physician: Yes Changes to H&P: No
[2023-12-22] MEDS: ACETAMINOPHEN 325 MG TABLET 975 MG PO (08:02)
[2023-12-22] MEDS: CELECOXIB 200 MG CAPSULE PO (08:02)
[2023-12-22] MEDS: VANCOMYCIN 1,000 MG/200 ML PIGGYBACK 200 MG IV (08:03)
[2023-12-22] MEDS: LACTATED RINGERS 1,000 ML 42 ML IV ×2 (08:03→09:30)
--- NOTE | 2023-12-22 08:37 | SUR.PREOP ---
Time out 0819 Block start time 08 . Monitoring initiated and maintained throughout procedure. Oxygen and medications given by anesthesiologist . Patient remained stable throughout procedure, no adverse reactions noted. Block end time 08.
[2023-12-22] MEDS: CEFAZOLIN 2 GM/100 ML PREMIX 100 ML IV ×2 (08:51→17:30)
[2023-12-22] MEDS: TRANEXAMIC ACID 1,000 MG VIAL 1000 MG INJ ×2 (08:55→10:35)
--- NOTE | 2023-12-22 09:11 | SUR.OPER ---
Supine on padded OR bed. Pillow under head, arms secured on padded armboards <90 degree abduction. Safety belt across torso. Non-operative leg secured with tape over blanket over lower leg. Operative leg secured in DeMayo/John Paul/Nathe positioner. Foam padded brace at thigh of operative leg.
[2023-12-22] MEDS: BUPIVACAINE LIPOSOME 266 MG/20 ML VIAL INJ (09:18)
[2023-12-22] MEDS: BUPIVACAINE 0.25% (PF) 60 ML, EPINEPHrine 0.3 MG INJ (09:20)
--- NOTE | 2023-12-22 11:18 | PM.OP.1 ---
Operative Date/Time/Diagnoses Date of procedure: 12/22/23 Time of procedure: 09:00 Pre-op diagnosis: Right knee OA Post-op diagnosis: same Procedure & Clinicians Procedure: Right total knee arthroplasty Same procedure as scheduled: Yes Indications: The patient has had progressively worsening right knee pain with radiographic changes consistent with arthritis. Non-operative management has failed and the patient has requested total knee replacement. The risks, benefits and alternatives to surgery were discussed with the patient prior to proceeding. Risks discussed included, but were not limited to, failure to relieve pain, stiffness, infection, nerve damage, deep venous thrombosis, pulmonary embolism, stroke, coma, heart attack, permanent paralysis and , as well as the potential need for eventual revision of the prosthetic. Surgeon: Nicky Cardenas Chemistry Research Assistant: Dann Lau Anesthesia Type: General and Peripheral nerve block Operative Notes Findings: Severe right knee OA, adequate stability, adequate bone, full range of motion Closure Type: primary Specimen(s): none sent Prosthetic devices, grafts, tissues, transplants, or devices: Cardenas and nephel valenzuela BCS2 size 8 femur, size 7 tibia, +9 poly, 35 mm oval patella Estimated Blood Loss (mL): 250 Blood products transfused: none Tourniquet time (min): 86 Procedure in detail: The patient was seen in the pre-operative area, where the patient identified the left knee as the operative site and this was marked with my initials. The patient received pre-operative antibiotics, and was taken to the operating room and placed on the operative table in the supine position. After satisfactory anesthesia, a multimedia artist out was performed. The left leg was encircled with a tourniquet about the proximal thigh, and the leg was prepared from the toes to the tourniquet with ChloroPrep in the usual fashion and draped through sterile drapes. The leg was elevated and exsanguinated with Eschmark bandage and the tourniquet inflated to [250] mmHg pressure. A PA was used during the procedure and was essential for intraoperative retraction and safe implantation of the components. The knee was approached through an approximately 18 cm incision centered over the patella and carried into the knee through a medial parapatellar arthrotomy. Portion of the medial and lateral meniscus was resected. Soft tissue was carefully mobilized around the patella the patella was measured with a caliper. Bone was resected from the patella and the patellar height was reconstituted with up an appropriate sized patellar component. A cover was then placed on the patella. A small amount of additional medial and lateral meniscus was resected. Pins were placed in the femur for Cori navigation. The tibial guide was attached to the tibia. The guide was meticulously adjusted and the knee was carefully navigated. It was placed through range of motion and I checked stability range of motion and gap. The Cori robotic bur was used for the distal femoral resection. It looked like an appropriate distal femoral cut and the cut was made without difficulty. The rotation was assessed and the appropriate size femoral guide was placed on the distal femur and finishing cuts were made. There was no evidence of notching. The anterior, posterior and chamfer cuts were then made. The posterior osteophytes and soft tissues were then removed. The posterior capsule was injected with part of a mixture of 60 ml 0.25% Marcaine mixed with 20 ml Exparel for post operative pain control. The remainder of this mixture was injected into the capsule and subcutaneous tissues during cement curing. The tibial guide was meticulously navigated. Proximal tibial cut was made without difficulty. The rotation was assessed. The patient was placed in extension residual medial and lateral meniscus as well as any residual bone was carefully resected. [No] additional tibia was resected. Hemostasis was achieved especially posteriorly. Additional local was injected into the posterior capsule. The femoral component was trial was placed and the notch was finished. Trial tibial and femoral components were then placed and the knee placed through a range of motion. Range of motion was [0-130], with good stability throughout the range. The trials were then removed, and the tibia was finished. The bone was prepared with pulsatile lavage, and dried with a sponge. Cement was applied and the final prosthetics placed. Excess cement was removed during and after cement curing. A brief Betadine soak was performed. After confirming there was no extruded cement posteriorly, the final tibial insert was placed. The knee was copiously irrigated and the tourniquet deflated. Hemostasis was obtained with the Bovie cautery. The capsule was closed with interrupted # 1 Vicryl suture. The subcutaneous layer was closed with barbed sutures, and the skin with a running 3-0 V-Lock suture and Surgical glue. An Aquacel Ag dressing was applied and the patient was taken to recovery having tolerated the procedure well. Complications: none Post-operative Condition: stable Disposition: Acute Care Plan for aftercare: The patient will be maintained on a standard total knee replacement protocol with weight bearing as tolerated. The patient will receive aspirin and sequential compression devices for DVT prophylaxis. The patient will be discharged home when safe for the home environment.
[2023-12-22] MEDS: OXYCODONE IR 5 MG TABLET PO ×3 (12:05→22:56)
--- NOTE | 2023-12-22 12:14 | SUR.PHASEI ---
report callled to Isabella green at 1210 , stated room is not clean yet, report given.
--- NOTE | 2023-12-22 14:40 | OT.IPNOTE ---
OT eval and treat order received. Pt in with P.T., will continue to follow.
--- NOTE | 2023-12-22 14:52 | PC.NURSE ---
Addendum entered by Isabella Romero R.N. 12/27/23 10:02: Late Entry: Patient given 10mg of oxycodone around 1550. This has been helpful for his discomfort. He is resting comfortably. Original Note: Assess- Patient is alert and oriented x4, he has an aquacel dressing with an kevin wrap over his l.knee. Patient had 10mg of oxyodone around 1300 and will be due for more around 1530. He is working with physical therapy and doing well. Patient will most likely be discharged tomorrow.
--- NOTE | 2023-12-22 15:34 | PT.IIE ---
Current Diagnoses Unilateral primary osteoarthritis, left knee (12/22/23) Surgery Performed Operation Date: 12/22/23 09:00 Actual Procedures p Total Knee Arthroplasty - Robot(Left) - Nicky Cardenas MD Surgical History (Last Reviewed 05/06/22 @ 11:48 by Toma Bailey DO) Anesthesia Status post arthroscopy (~1984) Status post knee surgery (~1999) Status post right knee replacement (~2021) Medical History (Last Updated 12/17/23 @ 14:07 by Raven Juan RN) Anxiety Chronic back pain Depression H/O intravenous drug use in remission Hepatitis B Hepatitis C Hypoglycemia Learning disability Mallet finger of left hand Osteoarthritis of both knees Psoriasis Psoriatic arthritis PTSD (post-traumatic stress disorder) Sinus congestion Tinea cruris Vision disorder Physical Therapy Inpatient Evaluation/Re-Eval M1 PT/OT-IP Prior Functional Status Start: 12/22/23 15:23 Freq: NEEDED Status: Active Protocol: Document 12/22/23 15:23 KJ (Rec: 12/22/23 15:34 KJ [id number]) Medical Review Prior Functional Status Mobility and Gait Recently used a single crutch due to knee pain - lives in an RV where a walker does not fit Activities of Daily Living and IADL's Indep with ADLs and self care, meals Prior Functional Level (Other details) In the past walked 3 miles daily; recently has walked 2 miles max due to knee pain Social History Household Members none Living Arrangements RV Number of Stairs To Enter/Railing? 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 Lives in RV parked in lot where he has a sailboat M2 PT-IP Current Condition Start: 12/22/23 15:23 Freq: NEEDED Status: Active Protocol: Document 12/22/23 15:23 KJ (Rec: 12/22/23 15:34 KJ [id number]) Physical Therapy Current Condition Current Condition Evaluation Date 12/22/23 Treatment Diagnosis Impaired mobility Onset Date 12/22/23 M3 PT-IP Subjective Start: 12/22/23 15:23 Freq: NEEDED Status: Active Protocol: Document 12/22/23 15:23 KJ (Rec: 12/22/23 15:34 KJ [id number]) Subjective Physical Therapy Visit Type Type Initial Evaluation Visit Start Time 14:17 Visit Stop Time 15:06 Physical Therapy Visit Comments Patient Goals To return home, be able to walk 3 miles a day again Therapy Pain Assessment Pain When Pain Assessed At Rest Pain Present Pain Present Pain Reported Location Left Knee Description Aching Pain Management Techniques Re-positioning right knee Description Aching Pain Management Techniques Re-positioning M4 PT-IP Mobility and Gait Start: 12/22/23 15:23 Freq: NEEDED Status: Active Protocol: Document 12/22/23 15:23 KJ (Rec: 12/22/23 15:34 KJ [id number]) PT-Bed Mobility Assessment Supine to Sit Supine to Sit Contact Guard Assistance Sit to Supine Sit to Supine Contact Guard Assistance Scooting Scooting to Edge of Bed Contact Guard Assistance Scooting Up and Down in Bed Contact Guard Assistance PT-Transfer Assessment Sit to and From Stand Sit to and from Stand Contact Guard Assistance Equipment Transfer Assistive Device Gait Belt,Front Wheeled Walker Transfers Transfer Technique Stand Step Pivot Transfer Ability Level of Assist Contact Guard Assistance Gait Assessment Gait Gait Assistance Required: Contact Guard Assist Distance (Feet) 25 Able to Maintain Weight Bearing Status Yes During Gait Assistive Devices Assistive Device Gait Belt,Front Wheeled Walker Orthotic/Prosthetic Devices or Brace: No Gait Deviations General Gait Pattern Decreased Stride Length, Decreased Feet Clearance Factors Limiting Gait Function Factors Limiting Gait Function Decreased Sensation PT-Balance Assessment Sitting Balance and Reactions Static Sitting Balance Ability Good Dynamic Sitting Balance Ability Good Standing Balance and Reactions Static Standing Balance Ability Good Dynamic Standing Balance Ability Fair M5 PT-IP Objective Assessments Start: 12/22/23 15:23 Freq: NEEDED Status: Active Protocol: Document 12/22/23 15:23 KJ (Rec: 12/22/23 15:34 KJ [id number]) Orientation Orientation/Cognition Level of Alertness Alert Orientation Name,Age,Birthday,Place, Situation Language Function Ability No Deficits Noted Safety Awareness Understands Safety Issues Gross Range of Motion Upper Extremity ROM Assessment Within Functional Limits Lower Extremity ROM Assessment Left Impaired Strength Upper Extremity Strength Assessment Within Functional Limits Lower Extremity Strength Assessment Left Impaired Sensation Assessment Sensation Gross Sensation Left LE Impaired M6 PT-IP Treatment Start: 12/22/23 15:23 Freq: NEEDED Status: Active Protocol: Document 12/22/23 15:23 KJ (Rec: 12/22/23 15:34 KJ [id number]) Physical Therapy Treatment Exercises Exercises Ankle Pumps,Gluteal Sets,Quad Sets Education Education Provided Weight Bearing Status,Post-Op Packet,Safety M7 PT-IP Assessment and Plan Start: 12/22/23 15:23 Freq: NEEDED Status: Active Protocol: Document 12/22/23 15:23 KJ (Rec: 12/22/23 15:34 KJ [id number]) PT Summary Assessment and Plan Potential Rehabilitation Potential Excellent Status of Condition at Evaluation Stable Summary Impairments ROM,Strength,Transfers,Gait Assessment Summary Ambulated well following surgery today. Goals Bed Mobility Goal Independent Transfer Goal Independent Gait Goal Independent Gait Distance 100' Other Goals Ambulate with axillary crutches and sba on level surface 100' Ascend/descend 3 steps w/ crutch + rail and CGA Days to Meet Goals 2 Frequency of Treatment Frequency Of Treatment Once a Day Treatment Plan Physical Therapy Treatment Plan Transfer Training,Gait Training Weight Bearing Status Weight Bearing Status Weight Bear as Tolerated Recommendations To Nursing Amount of Assist Needed Standby Assistance Discharge Recommendations PT Discharge Recommendations Home with Assistance, Outpatient PT Transportation Needs at Discharge Private Vehicle
[2023-12-22] MEDS: LACTATED RINGERS 1,000 ML 100 ML IV (15:56)
[2023-12-22] MEDS: OXYCODONE IR 10 MG TABLET PO (19:44)
[2023-12-22] MEDS: DOCUSATE 100 MG CAPSULE PO (21:35)
[2023-12-22] MEDS: ASPIRIN EC 81 MG TABLET PO (21:35)
[2023-12-22] MEDS: ACETAMINOPHEN 325 MG TABLET 650 MG PO (22:55)
[2023-12-23] MEDS: CEFAZOLIN 2 GM/100 ML PREMIX 100 ML IV (00:46)
[2023-12-23] MEDS: OXYCODONE IR 10 MG TABLET PO ×2 (04:34→08:10)
[2023-12-23 06:33] LABS: Hematocrit 40.1 % (41-53); Hemoglobin 13.8 g/dL (13.5-17.5)
[2023-12-23] MEDS: DOCUSATE 100 MG CAPSULE PO (08:10)
[2023-12-23] MEDS: ASPIRIN EC 81 MG TABLET PO (08:10)
[2023-12-23 08:14] VITALS: BP 133/85; PULSE 74; RESP 16; TEMP 36.5; O2SAT 98
--- NOTE | 2023-12-23 09:00 | PT.IPTN ---
Current Diagnoses Unilateral primary osteoarthritis, left knee (12/22/23) Surgery Performed Operation Date: 12/22/23 09:00 Actual Procedures p Total Knee Arthroplasty - Robot(Left) - Nicky Cardenas MD Physical Therapy Treatment Note M2 PT-IP Current Condition Start: 12/22/23 15:23 Freq: NEEDED Status: Active Protocol: Document 12/22/23 15:23 KJ (Rec: 12/22/23 15:34 KJ [id number]) Physical Therapy Current Condition Current Condition Evaluation Date 12/22/23 Treatment Diagnosis Impaired mobility Onset Date 12/22/23 M3 PT-IP Subjective Start: 12/22/23 15:23 Freq: NEEDED Status: Active Protocol: Document 12/23/23 09:21 TS (Rec: 12/23/23 09:33 TS [id number]) Subjective Physical Therapy Visit Type Type Treatment Note Visit Start Time 09:00 Visit Stop Time 09:19 Number of ALLERGIST Visits 1 Physical Therapy Visit Comments Patient Comments Pt found resting in bed, reports having more pain today , is agreeable to PT. Therapy Pain Assessment Pain When Pain Assessed At Rest Pain Present Pain Present Pain Reported M4 PT-IP Mobility and Gait Start: 12/22/23 15:23 Freq: NEEDED Status: Active Protocol: Document 12/23/23 09:21 TS (Rec: 12/23/23 09:33 TS [id number]) PT-Bed Mobility Assessment Supine to Sit Supine to Sit Independent Sit to Supine Sit to Supine Independent Scooting Scooting to Edge of Bed Independent Scooting Up and Down in Bed Independent PT-Transfer Assessment Sit to and From Stand Sit to and from Stand Standby Assistance Equipment Transfer Assistive Device Gait Belt,Axillary Crutches Orthotic/Prosthetic Devices or Brace: No Comments Mobility Comments Supine to sit Ind with HOB flat. STS with crutches SBA, pt required cues for sequencing. He ambulated ~150' SBA with crutches and a step to gait, denied any dizziness or lightheadedness. He performed stairs x3 with B handrails SBA, pt required cues for step sequencing. He ambulated back to the room, was left in bed, OT in room. Gait Assessment Gait Gait Assistance Required: Standby Assistance Distance (Feet) 150 Able to Maintain Weight Bearing Status Yes During Gait Assistive Devices Assistive Device Gait Belt,Front Wheeled Walker Orthotic/Prosthetic Devices or Brace: No Gait Deviations General Gait Pattern Decreased Stride Length, Decreased Feet Clearance Factors Limiting Gait Function Factors Limiting Gait Function Decreased Activity Tolerance, Decreased Strength Stair Climbing Assessment Evaluation Level of Assist On Stairs Standby Assistance Devices Stair Climbing Assistive Devices Left Railing,Right Railing Technique/Endurance Stair Climbing Direction Ascend and Descend Stair Climbing Technique Step to Step Number of Steps Climbed 3 PT-Balance Assessment Sitting Balance and Reactions Static Sitting Balance Ability Good Dynamic Sitting Balance Ability Good Standing Balance and Reactions Static Standing Balance Ability Good Dynamic Standing Balance Ability Fair Device Used crutches M5 PT-IP Objective Assessments Start: 12/22/23 15:23 Freq: NEEDED Status: Active Protocol: Document 12/22/23 15:23 KJ (Rec: 12/22/23 15:34 KJ [id number]) Orientation Orientation/Cognition Level of Alertness Alert Orientation Name,Age,Birthday,Place, Situation Language Function Ability No Deficits Noted Safety Awareness Understands Safety Issues Gross Range of Motion Upper Extremity ROM Assessment Within Functional Limits Lower Extremity ROM Assessment Left Impaired Strength Upper Extremity Strength Assessment Within Functional Limits Lower Extremity Strength Assessment Left Impaired Sensation Assessment Sensation Gross Sensation Left LE Impaired M6 PT-IP Treatment Start: 12/22/23 15:23 Freq: NEEDED Status: Active Protocol: Document 12/23/23 09:21 TS (Rec: 12/23/23 09:33 TS [id number]) Physical Therapy Treatment Education Education Provided Weight Bearing Status,Post-Op Packet,Safety M7 PT-IP Assessment and Plan Start: 12/22/23 15:23 Freq: NEEDED Status: Active Protocol: Document 12/23/23 09:21 TS (Rec: 12/23/23 09:33 TS [id number]) PT Summary Assessment and Plan Potential Rehabilitation Potential Excellent Summary Impairments ROM,Strength,Transfers,Gait Progress Towards Goals Progressing Toward Goals Assessment Summary Bear is progressing well with his mobility. He is Ind for all bed mobility. He progressed his gait to ~150' SBA with crutches, has no LOB. He performed stairs x3 with B handrails with SBA. PT is recommending home with assist and outpatient PT. Goals Bed Mobility Goal Independent Transfer Goal Independent Gait Goal Independent Gait Distance 100' Other Goals Ambulate with axillary crutches and sba on level surface 100' Ascend/descend 3 steps w/ crutch + rail and CGA Days to Meet Goals 2 Frequency of Treatment Frequency Of Treatment Once a Day Treatment Plan Physical Therapy Treatment Plan Transfer Training,Gait Training Other Recommendations and Next Treatment ROM, ther ex, gait w/ B Focus crutches progress 1 crutch when safe. Weight Bearing Status Weight Bearing Status Weight Bear as Tolerated Recommendations To Nursing Amount of Assist Needed Standby Assistance Discharge Recommendations PT Discharge Recommendations Home with Assistance, Outpatient PT Transportation Needs at Discharge Private Vehicle
--- NOTE | 2023-12-23 09:34 | OT.IP.EVAL ---
Current Diagnoses Unilateral primary osteoarthritis, left knee (12/22/23) Surgery Performed Operation Date: 12/22/23 09:00 Actual Procedures p Total Knee Arthroplasty - Robot(Left) - Nicky Cardenas MD Past Medical History (Last Updated 12/17/23 @ 14:07 by Raven Juan, RN) Anxiety Chronic back pain Depression H/O intravenous drug use in remission Hepatitis B Hepatitis C Hypoglycemia Learning disability Mallet finger of left hand Osteoarthritis of both knees Psoriasis Psoriatic arthritis PTSD (post-traumatic stress disorder) Sinus congestion Tinea cruris Vision disorder Surgical History (Last Reviewed 05/06/22 @ 11:48 by Toma Bailey DO) Anesthesia Status post arthroscopy (~1984) Status post knee surgery (~1999) Status post right knee replacement (~2021) Occupational Therapy Inpatient Evaluation/Re-Eval M1 PT/OT-IP Prior Functional Status Start: 12/22/23 15:23 Freq: NEEDED Status: Active Protocol: Document 12/23/23 09:33 [facility] (Rec: 12/23/23 09:43 [facility] [id number]) Medical Review Prior Functional Status Mobility and Gait Recently used a single crutch due to knee pain - lives in an RV where a walker does not fit Activities of Daily Living and IADL's Indep with ADLs and self care, meals Prior Functional Level (Other details) In the past walked 3 miles daily; recently has walked 2 miles max due to knee pain Social History Household Members none Living Arrangements RV Number of Stairs To Enter/Railing? 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 Lives in RV parked in lot where he has a sailboat M2 OT-IP Current Condition Start: 12/23/23 09:33 Freq: Status: Active Protocol: Document 12/23/23 09:33 [facility] (Rec: 12/23/23 09:43 [facility] [id number]) Occupational Therapy Current Condition Current Condition Evaluation Date 12/23/23 Treatment Diagnosis S/P L TKA Diagnosis Onset Date 12/22/23 M3 OT- IP Subjective and Pain Start: 12/23/23 09:33 Freq: Status: Active Protocol: Document 12/23/23 09:33 [facility] (Rec: 12/23/23 09:43 [facility] [id number]) OT- Subjective Occupational Therapy Visit Type Type Initial Evaluation Visit Start Time 09:10 Visit Stop Time 09:34 Occupational Therapy Visit Comments Patient Comments Pt agreed to get dressed. Patient/Caregiver Goals TO go home. OT Pain Assessment Pain When Pain Assessed At Rest Pain Present Pain Present Pain Reported Location Left Knee Intensity 6 Scale Used Numeric (0 - 10) M4 OT- IP ADL's Start: 12/23/23 09:33 Freq: Status: Active Protocol: Document 12/23/23 09:33 [facility] (Rec: 12/23/23 09:43 [facility] [id number]) OT [id number] General Evaluation Self-Feeding Ability Independent OT ADL-Grooming General Evaluation Grooming Ability Independent OT ADL-Oral Care General Eval Oral Care Ability Independent OT ADL-Dressing General Eval Lower Body Dressing Ability Minimal Assistance Comments OT Dressing Comments Pt needing assist to get the the heel of the left shoe on. Educated to dress the LLE first and take out last. OT ADL-Toileting Comments OT Toileting Comments Pt able to toilet on his own and educated to be mindful of his left knee positioning during ADL needs. Pt agrees to use a urinal at night. OT ADL-Bathing Comments OT Bathing Comments Pt states to sponge off and agrees if showering to get a tub bench. Educated of bandage needs while showering. M5 OT- IP IADL's Start: 12/23/23 09:33 Freq: Status: Active Protocol: Document 12/23/23 09:33 [facility] (Rec: 12/23/23 09:43 [facility] [id number]) OT-Instrumental Activities of Daily Living Home Safety Awareness Awareness of Need for Assistance at Home Good Awareness Ability to Problem Solve Emergency Able to Problem Solve Situations Medication Management Medication Management No Deficits Identified Money Management Money Management No Deficits Identified Meal Preparation Meal Preparation Comments Pt would benefit from some assist. 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 M6 OT- IP Functional Cognition Start: 12/23/23 09:33 Freq: Status: Active Protocol: Document 12/23/23 09:33 [facility] (Rec: 12/23/23 09:43 [facility] [id number]) Cognitive Factors Limiting Selfcare Function Cognitive Ability Level of Alertness Alert Patient Orientation Name,Age,Birthday,Month,Date, Year,Day of Week,Place, Situation Attention Span Ability Capable of Focused Attention, Capable of Sustained Attention Ability to Follow Commands Able to Follow Multi-Step Commands Cognitive Comments Cognitive Assessment Comments Intact OT- Vision and Hearing OT- Hearing Assessment OT- Hearing Assessment WFL OT- Vision Assessment Visual Acuity Glasses All The Time M7 OT- IP Mobility and Balance Start: 12/23/23 09:33 Freq: Status: Active Protocol: Document 12/23/23 09:33 [facility] (Rec: 12/23/23 09:43 [facility] [id number]) OT- Bed Mobility Assessment Supine to Sit Supine to Sit Assist Standby Assistance Sit to Supine Sit to Supine Assist Standby Assistance OT-Transfer Assessment Sit to and From Stand Sit to and from Stand Independent Transfers Transfer Ability Independent Technique Transfer Destination Bed,Chair Transfer Technique Stand Step Pivot Devices Transfer Assistive Devices Gait Belt,Front Wheeled Walker Comments Mobility Comments Pt able to use the crutches independently in the room. OT- Balance Assessment Sitting Balance and Reactions Static Sitting Balance Ability Normal Dynamic Sitting Balance Ability Good Standing Balance and Reactions Static Standing Balance Ability Good Dynamic Standing Balance Ability Good M8 OT- IP Objective Assessments Start: 12/23/23 09:33 Freq: Status: Active Protocol: Document 12/23/23 09:33 [facility] (Rec: 12/23/23 09:43 [facility] [id number]) OT Gross Range of Motion Upper Extremity Range of Motion Assessment Within Functional Limits OT Strength Upper Extremity Strength Assessment Within Functional Limits M9 OT- IP Assessment and Plan Start: 12/23/23 09:33 Freq: Status: Active Protocol: Document 12/23/23 09:33 [facility] (Rec: 12/23/23 09:43 [facility] [id number]) OT Summary Assessment and Plan Potential Rehabilitation Potential Excellent Analytic Complexity at Evaluation Low Summary OT Impairments Pain,Balance,Functional Mobility,Dressing,Bathing Progress Towards Goals Progressing Toward Goals Assessment Summary Pt low complexity and main barriers pain and showering needs. Pt states instead of getting a tub bench to just sponge off until his follow up appointment. Pt to go home and have outpt PT. Goals Bathing Goal Independent Shower Transfer Goal Independent Days to Meet Goals 5 Frequency of Treatment Other frequency 5x/week Treatment Plan OT Treatment Plan ADL Training,Patient/Family Education,Discharge Planning Discharge Recommendations OT Discharge Recommendations Home with Assistance, Outpatient PT Transportation Needs at Discharge Private Vehicle
[2023-12-23] MEDS: polyethylene glycoL 3350 17 GM POWD.PACK PO (10:02)
--- NOTE | 2023-12-23 10:37 | PC.NURSE ---
Discharge note: Discharge instructions given to patient, discussed importance of F/U with Ortho on 12/31, dressing care, new medications, frequent ambulation, and home safety. Patient verbalized understanding of instructions. Home via private vehicle, accompanied by friend. Rxs to be picked up at [place] on way home.
--- NOTE | 2023-12-23 11:58 | PC.NURSE ---
1100. Pt is dressed and ready for discharge home with friend. IV has been removed. He has been cleared for discharge by PT. Went over d/c instructions with Pt-discussed d/c meds, time of last dose, reviewed stroke education, s/s of infection, encouraged Pt to drink fluids to prevent constipation or dehydration, and follow up as directed. Pt denied further questions and was taken out via w/c by [employer]ANDER to POV with Friend and all belongings.
--- NOTE | 2023-12-23 12:00 | P.DS_ITS ---
History of Present Illness History of Present Illness Date Patient Seen: 12/23/23 Time Patient Seen: 08:00 Chief complaint: Left TKA Narrative: Patient's pain is [id number]. No fever/ chills. No nausea /vomiting. Patient ambulated with physical therapy yesterday. Discharge Providers Provider Discharge Date: 12/23/23 Primary care physician: Zhao Brannon MD Consults: 12/22/23 07:47 Consult to Anesthesiology Routine Comment: Consulting Provider: Anesthesiologist Reason for consultation: Regional block for post operative pain control 12/22/23 12:47 Consult to Discharge Planning Routine Comment: Consult to Occupational Therapy Evaluate & Treat Comment: Physician Instructions: Evaluate and treat Consult to Physical Therapy Evaluate & Treat Comment: Physician Instructions: postop TKA protocol Discharge provider: Dann Lau PA-C Summary Hospital Course Discharge Diagnosis: Right knee OA Hospital Course: Right total knee arthroplasty Same procedure as scheduled: Yes Indications: The patient has had progressively worsening right knee pain with radiographic changes consistent with arthritis. Non-operative management has failed and the patient has requested total knee replacement. The risks, benefits and alternatives to surgery were discussed with the patient prior to proceeding. Risks discussed included, but were not limited to, failure to relieve pain, stiffness, infection, nerve damage, deep venous thrombosis, pulmonary embolism, stroke, coma, heart attack, permanent paralysis and , as well as the potential need for eventual revision of the prosthetic. Surgeon: Nicky Cardenas Hollock Maker: Dann Lau Anesthesia Type: General and Peripheral nerve block Operative Notes Findings: Severe right knee OA, adequate stability, adequate bone, full range of motion Closure Type: primary Specimen(s): none sent Prosthetic devices, grafts, tissues, transplants, or devices: Cardenas and nephew journey BCS2 size 8 femur, size 7 tibia, +9 poly, 35 mm oval patella Estimated Blood Loss (mL): 250 Blood products transfused: none Tourniquet time (min): 86 Patient admitted yesterday for right total knee arthroplasty. Patient consented to the same. Patient underwent right total knee arthroplasty December 22, 2023. Patient back his room recovery in stable condition. Keep dressing clean and dry. Multimodal pain management. Weightbearing as tolerated. Discharged home today in stable condition Exam Vital Signs (past 8 hours): - 12/23/23 08:14 Temperature 97.7 F Pulse Rate 74 Respiratory Rate 16 Blood Pressure 133/85 Pulse Oximetry 98 Oxygen Flow Rate 0 Oxygen Delivery Method Room Air Oxygen Flow Rate 0 Narrative Exam Narrative: 73-year-old male resting comfortably in bed in no apparent distress. Dressing is clean, dry and intact. Neurovascular status is intact bilateral lower extremities. Objective Labs 12/23/23 06:09 Labs: Laboratory Results - last 24 hr 12/23/23 06:09 Hgb 13.8 Hct 40.1 L PFSH Medical History (Updated 12/17/23 @ 14:07 by Raven Juan RN) Depression Anxiety Psoriatic arthritis Hypoglycemia Learning disability PTSD (post-traumatic stress disorder) Sinus congestion Psoriasis Hepatitis B Hepatitis C H/O intravenous drug use in remission Mallet finger of left hand Osteoarthritis of both knees Vision disorder Chronic back pain Tinea cruris Surgical History Status post right knee replacement (~2021) Anesthesia Status post arthroscopy (~1984) Status post knee surgery (~1999) Social History marital status: household members: none lives independently: Yes occupational status: other Smoking Status: Former smoker Smokeless tobacco user: chewing tobacco alcohol intake: former substance use type: former substance user and marijuana Discharge Assessment & Plan Assessment and Plan Assessment: Progressing as expected Plan of Treatment: Multimodal pain management Weightbearing as tolerated Keep dressing clean and dry Follow up outpatient orthopedic clinic in 2 weeks as scheduled Discharge home today in stable condition Discharge Plan Discharge Plan Patient Disposition: Home Discharge orders & Medications Discharge Orders: Discharge (Order); Ordered 12/23/23 Ordered By: Milagros Jackman Prescriptions: New acetaminophen 325 mg Tablet 650 mg PO Q6H PRN (Reason: Fever/Mild Pain (1-3)) Qty: 60 0RF aspirin 81 mg Tablet,Delayed Release (Dr/Ec) 81 mg PO BID Qty: 90 0RF polyethylene glycol 3350 17 gram Powder In Packet 17 g PO DAILY PRN (Reason: Constipation) Qty: 14 0RF Continued Cosentyx Pen (2 Pens) 150 mg/mL pen injector 150 mg SUBCUT Q4W Patient Comments: [NO ORIGINAL SIG] Follow up/Referrals: Zhao Brannon MD [Primary Care Provider] - Nicky Cardenas MD [Physician] - 01/01/24 10:00 am (Follow up with Rg Boykin PA-C, at [facility] office in [place].) Diet/Activity/Treatments Diet: Diet as Tolerated Activity: Weightbearing as tolerated. Walk frequently! Cold/Heat Therapy: Ice to knee as needed for pain. Skin/Wound/Dressing Care Report to your healthcare provider any signs of infection, such as:: chills, fever, night sweats, unusual drainage and unusual redness Dressing: May remove MALATHI wrap and shower on 12/22/2023. Leave dressing in place until follow up in office. No bathing or otherwise soaking incision. Call the office if the dressing becomes saturated inside. Visit Report/Discharge Packet Instructions: DI for Knee Replacement Stand Alone Forms: Patient Portal/API, Stroke Signs & Symptoms, Surgery Discharge Discharge Data Primary Care Provider: Zhao Brannon Attending Provider: Nicky Cardenas VTE Deep Vein Thrombosis/Pulmonary Embolism Present on Admission: No
--- NOTE | 2023-12-23 14:04 | CM.DANOTE ---
Initial DCP Assessment Visit Note Reviewed EMR and team rounds for status updates. Met with pt at bedside to introduce self and role, pt was found to be alert/oriented, and packing his belongings in anticipation of d/c home. Pt resides modified independently in his mobile home, uses crutches for assisted mobility due to his knee pain. He has a plan to stay in a motel for a few days before going back to his mobile home, he has several friends who are planning to assist him until he can manage independently. He has a friend that is also planning to transport him at d/c. Payor: [employer] Attending: Dr. Nicky Cardenas Pt is a 73 year-old M post-op day 1 from his L-knee total arthroplasty surgery. He has done well postoperatively and was medically cleared for discharge home. No CM needs identified during his stay. Discharge Planning/Care Management CM Discharge Assessment Start: 12/23/23 14:03 Freq: Status: Active Protocol: Document 12/23/23 14:03 DPL (Rec: 12/23/23 14:04 DPL [id number]) Discharge Planning Assessment Assigned Farm Equipment Technician FILIPPO Duque Advance Directives? No History Provided By Patient,Medical Record Has Patient been admitted in last 30 No days? Prior Living Arrangements RV Household Members none Type of transporation used prior to Drives own vehicle admit Independent with ADL's No: modified independent with the use of crutches Is patient alert and oriented? Yes Caregiver for Another No DME Already Rented / Owned Crutches Patient/Family Preference OP PT Therapy Comment Patient has a friend that will be able to assist, and he will be staying in local motel before he returns to his RV. Discharge Plan Home Transportation Arrangement Friend Referrals Initiated None needed Whiteboard Updated in Patient Room with Yes name and ext. # of Farm Equipment Technician Review Status In Process Please Provide Date Initial DC 12/23/23 Assessment Was Performed Pre-Anesthesia Assessment Start: 12/17/23 13:57 Freq: Status: Discharge Protocol: Document 12/17/23 13:58 CAB (Rec: 12/17/23 14:16 CAB [id number]) Pre-Anesthesia Assessment Patient Information Reviewed Via Phone Assessment Diagnostic Results BMP/CMP,CBC,EKG Comment Labs/EKG @ 11/02/23 Primary Care Provider Zhao Brannon Seen Specialist in Last 12 Months Yes Specialist Seen Orthopedist,Other Primary Language Faroese Preferred Language Faroese Immigration Lawyer Required No Height 180.34 cm Weight 92.986 kg Body Mass Index (BMI) 28.5 Hearing Ability Normal Visual Assist Glasses Dentition Type Teeth, Natural Present,Teeth, Missing Comment Missing a lot of teeth Hx Anesthesia Reactions No Hx Family Anesthesia Reaction No Hx Malignant Hyperthermia No Hx Blood Transfusions No Anesthesia Review Requested No Regulatory Compliance Director No alcohol intake former Alcohol Intake Frequency Other: Sober x 8 years Smoking Status Former smoker Tobacco type smokeless tobacco how long ago did patient quit smoking Quit 10 years ago, quit chewing tobacco 1-2 years ago Substance Use Type marijuana,does not use,former substance user Comment Pt advised not to smoke marijuana 24 hours prior Pain Present Pain Reported Musculoskeletal Symptoms Abnormal Gait,Difficulty Walking,Joint Pain History of Falling (Recent or History of No ) Patient is completely paralyzed or No completely immobile Prosthesis or Orthotic Device Crutches Mental Status Oriented to own ability Is patient on oxygen? No Does patient have WYATT/SOB No Hx Sleep Apnea No CPAP/BIPAP use not prescribed Currently Taking a Beta Vaishali No Hx Chest Pain No Hx SOB No Hx Syncope or Dizziness No Anti-Coagulant Therapy No Has a Specialist Icu No Cardiac Testing No Hx Pacemaker/ICD No Pacemaker Rep Required? No Cardiac Clearance Received No Diet Type At Home Regular Dysphagia No Gastrointestinal Symptoms Loose Stools Bladder Pattern Nocturia Urinary Catheter Present No Hx Urinary Self Catheterization No Diabetes No HgbA1C 5.4 Date 11/02/23 Hx Drug Resistant Organism No Presence of External or Internal Medical No Devices Received a COVID vaccine? Yes Marital Status Single Lives With none Current Living Arrangements RV Support System Friend(s) Does the Patient Have Assistance After No: No one to stay w/pt at [place], Surgery friends around-Dr. Cardenas knows Patient Discharge Plan Description Return Home,Other Comment Pt not advised on length of stay per surgeon Feels Safe in Current Environment Yes Been Physically Hurt or Threatened By a No Person in Current Environment Do you have thoughts of harming yourself None or others? Are you currently considering suicide? No Do you have a plan to hurt yourself or No Plan others? Do You Have Any Spiritual Beliefs That No May Affect Your HC Choices? Do You Have Any Cultural Practices That No May Affect Your HC Choices? Who Can We Speak to About Patient's Care Family, friends Identifying Code for Release of Patient Declines to issue Information Health Care Proxy/Next of Kin Malik Springer (friend) Health Care Proxy Emergency Contact Name Malik Springer (friend) Emergency Contact Advance Directives? No Power of Restaurant Crew No PAC Instructions Durable medical equipment, Medications to take/avoid, Nasal antibiotic,No ETOH/ petroleum product on skin DOS, NPO,Post-op transportation,Pre -surgical wash,Sensory aids, Sturdy shoes/comfortable clothes,Do not bring valuables and remove jewelry
== END 2023-12-23 12:00 | disposition home or self-care (01) ==
LOC: OR 07:29 → AC 12:45
PROVIDERS: PCP Family Medicine; Referring Provider Orthopaedic Surgery; Visit Provider Orthopaedic Surgery
PROC: 0SRD0JZ Replacement of Left Knee Joint with Synthetic Substitute, Open Approach (ICD-10-PCS; CPT 27447; principal; 2023-12-22 09:00)
DX: M17.12 Unilateral primary osteoarthritis, left knee (principal); G89.18 Other acute postprocedural pain; M25.761 Osteophyte, right knee
CPT/HCPCS: 27447; 36415; 64450; 73560; 85014; 85018; 97110; 97116; 97161; 97165; 97530; 97535; C1776; C9290; J0171; J0690; J1100; J2405; J2704; J3010

== ENCOUNTER 2024-06-20 22:02 | Emergency (ER) | payer MEDICARE, MEDICAID, SELFPAY ==
[2023-12-22 13:03] VITALS: BMI 29.0
[2024-06-20 22:09] VITALS: BP 132/69; PULSE 117; RESP 18; TEMP 37; O2SAT 99; BMI 29.2
--- NOTE | 2024-06-20 22:27 | DI.RAD.S_ITS ---
PROCEDURE: XR KNEE LT 3V INDICATIONS: pain, recent fall TECHNIQUE: 3 views of the knee were acquired. COMPARISON: [facility], CR, XR KNEE 4+ VIEWS LEFT, 01/01/2024, 10:10. FINDINGS: Bones: Postsurgical changes from total knee arthroplasty. Hardware components are in stable positions. No acute osseous abnormality. Soft tissues: No joint effusion. No suspicious soft tissue calcifications. Nonspecific soft tissue edema. IMPRESSION: Postsurgical changes from total knee arthroplasty with hardware components in stable positions. No acute hardware complication or acute osseous abnormality. Approved by: Lisandro Durham M.D. on 06/20/2024 at 23:34
--- NOTE | 2024-06-20 22:30 | DI.US.S_ITS ---
PROCEDURE: US PERIPH VENOUS LOW EXTREM LT INDICATIONS: swelling/pain in Left lower leg TECHNIQUE: Real-time imaging, as well as color and pulse Doppler interrogation, were performed of the lower extremity deep veins from the inguinal ligament to the popliteal fossa, with documentation of the visualized calf veins. COMPARISON: None. FINDINGS: Occlusive deep venous thrombus is seen within the central radial saphenous vein as well as the common femoral, femoral, profunda femoral, and popliteal veins. Calf veins are not well seen due to overlying edema in the lower leg. IMPRESSION: Extensive occlusive deep venous thrombus throughout left lower extremity. Findings were discussed with the referring provider, Dr. Li, by telephone on 06/20/2024 at 11:14 PM. Approved by: Lisandro Durham M.D. on 06/20/2024 at 23:14
[2024-06-20 23:36] VITALS: BP 114/82; PULSE 101; RESP 19; O2SAT 96
[2024-06-21] VITALS (43 sets, daily range): BP systolic 106–128; BP diastolic 63–82; PULSE 71–96; RESP 16–22; O2SAT 96–99
--- NOTE | 2024-06-21 00:25 | ED_ITS ---
HPI - Extremity Problem <Sirena Li, DO - Last Filed: 06/21/24 21:40> General Chief complaint: Extremity Problem,Nontraumatic Stated complaint: whole left leg swollen and in px Time Seen by Provider: 06/21/24 00:17 Source: patient Mode of arrival: Wheelchair History of Present Illness HPI Narrative: Patient is a 74-year-old male history of psoriatic arthritis presenting today with significant left leg swelling and pain. He reports it has been like this for about 2-3 weeks. He typically spends 6 months or so in [place], he went to [place] in April but about 3 weeks ago started having significant pain in his left leg he thought it was from his total knee which was done in December. He was having significant pain with walking, he was able to walk as far. He then at 1 point had significant right-sided chest and back pain with coughing and shortness of breath. He said that he was seen at a hospital there who thought he had a kidney stone and he was given pain medication. At that point he remained bed ridden in [place] his leg continued to swell. He decided to fly home. He arrived in [place] today after [facility] and [place]. Continues to have pretty significant left leg pain and swelling requiring wheelchair to get around through the multiple airports that he had to. Related Data Home Medications Medication Instructions Recorded Confirmed secukinumab 150 mg/mL subcutaneous 150 mg SUBCUT Q4W 11/03/23 03/31/24 pen injector (Cosentyx Pen 300 mg/2 Pens () Previous Rx's Medication Instructions Recorded acetaminophen 325 mg tablet 650 mg (2 x 325 mg) PO Q6H PRN 12/23/23 Fever/Mild Pain (1-3) #60 tabs aspirin 81 mg tablet,delayed 81 mg PO BID #90 tabs 12/23/23 release polyethylene glycol 3350 17 gram 17 g PO DAILY PRN Constipation #14 12/23/23 oral powder packet ea meloxicam 15 mg tablet 15 mg PO DAILY PRN joint pain #90 03/31/24 tabs apixaban 5 mg (74 tabs) tablets in See Rx Instructions PO .COMPLEX 06/21/24 a dose pack (Eliquis DVT-PE Treat #74 ea 30D Start) hydrocodone 5 mg-acetaminophen 325 1 tab PO Q6H PRN pain #10 tabs 06/21/24 mg tablet Allergies Allergy/AdvReac Type Severity Reaction Status Date / Time No Known Drug Allergies Allergy Verified 03/31/24 09:27 Patient History <Sirena Li DO - Last Filed: 06/21/24 21:40> Medical History (Updated 06/21/24 @ 09:07 by Kb Moreno MD) Depression Anxiety Psoriatic arthritis Hypoglycemia Learning disability PTSD (post-traumatic stress disorder) Sinus congestion Psoriasis Hepatitis B Hepatitis C H/O intravenous drug use in remission Mallet finger of left hand Osteoarthritis of both knees Vision disorder Chronic back pain Tinea cruris Surgical History Status post right knee replacement (~2021) Anesthesia Status post arthroscopy (~1984) Status post knee surgery (~1999) Social History marital status: household members: none lives independently: Yes occupational status: other Smoking Status: Former smoker Smokeless tobacco user: chewing tobacco alcohol intake: former substance use type: former substance user and marijuana Smoking Status: Former smoker alcohol intake frequency: 0-2 drinks per day Exam <Sirena Li DO - Last Filed: 06/21/24 21:40> Initial Vital Signs Initial Vital Signs: Vital Signs Temperature 98.6 F 06/20/24 22:09 Pulse Rate 117 H 06/20/24 22:09 Respiratory Rate 18 06/20/24 22:09 Blood Pressure 132/69 06/20/24 22:09 Pulse Oximetry 99 06/20/24 22:09 Oxygen Delivery Method Room Air 06/20/24 22:09 GENERAL: Alert 74-year-old male HEENT: Head atraumatic,EOMI, pupils reactive, face symmetric, moist mucous membranes CARDIOVASCULAR: Regular rate and rhythm without murmurs, rubs or gallops. RESPIRATORY: Breath sounds equal bilaterally, no wheezes rales or rhonchi. ABDOMEN: Soft, nontender. Normoactive bowel sounds all 4 quadrants. No guarding or rebound. EXTREMITIES: Normal range of motion, no clubbing or edema. Neurovascularly intact Significant left leg swelling distal pedal pulse intact foot is warm NEUROLOGICAL: Alert and oriented x4.Normal gait and speech. SKIN: Warm, dry, no laceration, no petechiae, no rashes or lesions. <Kb Moreno MD - Last Filed: 06/24/24 19:48> Initial Vital Signs Initial Vital Signs: Vital Signs Temperature 98.6 F 06/20/24 22:09 Pulse Rate 117 H 06/20/24 22:09 Respiratory Rate 18 06/20/24 22:09 Blood Pressure 132/69 06/20/24 22:09 Pulse Oximetry 99 06/20/24 22:09 Oxygen Delivery Method Room Air 06/20/24 22:09 Course <Sirena Li DO - Last Filed: 06/21/24 21:40> Orders Ordered: Discontinued Medications Hydrocodone Bitart/Acetaminophen (Hydrocodone/Acet 5/325 Tablet) 1 tab PO NOW ONE Stop: 06/21/24 05:11 Last Admin: 06/21/24 05:29 Dose: 1 tab Documented By: MARIO Apixaban (Apixaban 5 Mg Tablet) 10 mg PO NOW ONE Stop: 06/21/24 01:52 Last Admin: 06/21/24 01:57 Dose: 10 mg Documented By: ZANA Docusate Sodium (Docusate 100 Mg Capsule) 100 mg PO NOW ONE Stop: 06/21/24 17:13 Last Admin: 06/21/24 17:13 Dose: 100 mg Documented By: MARU Heparin Sodium (Porcine) (Heparin 5,000 Unit/Ml Vial) 7,500 unit 80 unit/kg (7500 unit) IV NOW ONE Stop: 06/21/24 12:17 Last Admin: 06/21/24 12:34 Dose: 7,500 unit Documented By: ELIEL Sodium Chloride (Normal Saline 0.9%) 250 mls @ 1,000 mls/hr IV NOW ONE Stop: 06/21/24 07:36 Last Infusion: 06/21/24 10:00 Dose: Infused Documented By: Admin: 06/21/24 09:09 Dose: 1,000 mls/hr Documented By: MARU Heparin Sodium/Dextrose (Heparin Drip) 25,000 unit in 500 mls @ 34.291 mls/hr IV CONT DEANA; Protocol Last Titration: 06/21/24 19:53 Dose: Infused Documented By: MADALYN Co-signed By: SRINIVAS Titration: 06/21/24 14:23 Dose: 14 units/kg/hr, 26.671 mls/hr Documented By: MARU Co-signed By: ELIEL Admin: 06/21/24 12:32 Dose: 18 units/kg/hr, 34.291 mls/hr Documented By: ELIEL Co-signed By: SRINIVAS Vital Signs Vital signs: Vital Signs - 8 hr 06/21/24 14:00 06/21/24 14:00 06/21/24 14:30 Pulse Rate 80 Pulse Rate [Left Dorsalis Pedis] Respiratory Rate Blood Pressure 108/69 106/66 Pulse Oximetry 97 06/21/24 14:30 06/21/24 15:00 06/21/24 15:00 Pulse Rate 78 77 Pulse Rate [Left Dorsalis Pedis] Respiratory Rate Blood Pressure 111/69 Pulse Oximetry 96 97 06/21/24 15:00 06/21/24 15:30 06/21/24 15:30 Pulse Rate 74 Pulse Rate [Left Dorsalis Pedis] 80 Respiratory Rate Blood Pressure 115/77 Pulse Oximetry 98 06/21/24 16:00 06/21/24 16:00 06/21/24 16:30 Pulse Rate 76 81 Pulse Rate [Left Dorsalis Pedis] Respiratory Rate Blood Pressure 109/70 Pulse Oximetry 97 97 06/21/24 16:30 06/21/24 17:00 06/21/24 17:00 Pulse Rate 84 Pulse Rate [Left Dorsalis Pedis] Respiratory Rate Blood Pressure 115/73 124/69 Pulse Oximetry 98 06/21/24 17:30 06/21/24 17:30 06/21/24 18:00 Pulse Rate 87 Pulse Rate [Left Dorsalis Pedis] Respiratory Rate Blood Pressure 114/68 115/65 Pulse Oximetry 97 06/21/24 18:00 06/21/24 18:30 06/21/24 18:30 Pulse Rate 89 93 H Pulse Rate [Left Dorsalis Pedis] Respiratory Rate Blood Pressure 107/70 Pulse Oximetry 97 98 06/21/24 19:00 06/21/24 19:00 06/21/24 19:00 Pulse Rate 92 H Pulse Rate [Left Dorsalis Pedis] 86 Respiratory Rate 22 Blood Pressure 119/73 Pulse Oximetry 97 06/21/24 19:30 06/21/24 19:30 Pulse Rate 89 Pulse Rate [Left Dorsalis Pedis] Respiratory Rate 16 Blood Pressure 127/75 Pulse Oximetry 97 <Kb Moreno MD - Last Filed: 06/24/24 19:48> Orders Ordered: Discontinued Medications Hydrocodone Bitart/Acetaminophen (Hydrocodone/Acet 5/325 Tablet) 1 tab PO NOW ONE Stop: 06/21/24 05:11 Last Admin: 06/21/24 05:29 Dose: 1 tab Documented By: MARIO Apixaban (Apixaban 5 Mg Tablet) 10 mg PO NOW ONE Stop: 06/21/24 01:52 Last Admin: 06/21/24 01:57 Dose: 10 mg Documented By: ZANA Docusate Sodium (Docusate 100 Mg Capsule) 100 mg PO NOW ONE Stop: 06/21/24 17:13 Last Admin: 06/21/24 17:13 Dose: 100 mg Documented By: MARU Heparin Sodium (Porcine) (Heparin 5,000 Unit/Ml Vial) 7,500 unit 80 unit/kg (7500 unit) IV NOW ONE Stop: 06/21/24 12:17 Last Admin: 06/21/24 12:34 Dose: 7,500 unit Documented By: ELIEL Sodium Chloride (Normal Saline 0.9%) 250 mls @ 1,000 mls/hr IV NOW ONE Stop: 06/21/24 07:36 Last Infusion: 06/21/24 10:00 Dose: Infused Documented By: Admin: 06/21/24 09:09 Dose: 1,000 mls/hr Documented By: MARU Heparin Sodium/Dextrose (Heparin Drip) 25,000 unit in 500 mls @ 34.291 mls/hr IV CONT DEANA; Protocol Last Titration: 06/21/24 19:53 Dose: Infused Documented By: MADALYN Co-signed By: SRINIVAS Titration: 06/21/24 14:23 Dose: 14 units/kg/hr, 26.671 mls/hr Documented By: MARU Co-signed By: ELIEL Admin: 06/21/24 12:32 Dose: 18 units/kg/hr, 34.291 mls/hr Documented By: ELIEL Co-signed By: SRINIVAS Vital Signs Vital signs: Vital Signs - 8 hr 06/21/24 14:00 06/21/24 14:00 06/21/24 14:30 Pulse Rate 80 Pulse Rate [Left Dorsalis Pedis] Respiratory Rate Blood Pressure 108/69 106/66 Pulse Oximetry 97 06/21/24 14:30 06/21/24 15:00 06/21/24 15:00 Pulse Rate 78 77 Pulse Rate [Left Dorsalis Pedis] Respiratory Rate Blood Pressure 111/69 Pulse Oximetry 96 97 06/21/24 15:00 06/21/24 15:30 06/21/24 15:30 Pulse Rate 74 Pulse Rate [Left Dorsalis Pedis] 80 Respiratory Rate Blood Pressure 115/77 Pulse Oximetry 98 06/21/24 16:00 06/21/24 16:00 06/21/24 16:30 Pulse Rate 76 81 Pulse Rate [Left Dorsalis Pedis] Respiratory Rate Blood Pressure 109/70 Pulse Oximetry 97 97 06/21/24 16:30 06/21/24 17:00 06/21/24 17:00 Pulse Rate 84 Pulse Rate [Left Dorsalis Pedis] Respiratory Rate Blood Pressure 115/73 124/69 Pulse Oximetry 98 06/21/24 17:30 06/21/24 17:30 06/21/24 18:00 Pulse Rate 87 Pulse Rate [Left Dorsalis Pedis] Respiratory Rate Blood Pressure 114/68 115/65 Pulse Oximetry 97 06/21/24 18:00 06/21/24 18:30 06/21/24 18:30 Pulse Rate 89 93 H Pulse Rate [Left Dorsalis Pedis] Respiratory Rate Blood Pressure 107/70 Pulse Oximetry 97 98 06/21/24 19:00 06/21/24 19:00 06/21/24 19:00 Pulse Rate 92 H Pulse Rate [Left Dorsalis Pedis] 86 Respiratory Rate 22 Blood Pressure 119/73 Pulse Oximetry 97 06/21/24 19:30 06/21/24 19:30 Pulse Rate 89 Pulse Rate [Left Dorsalis Pedis] Respiratory Rate 16 Blood Pressure 127/75 Pulse Oximetry 97 MDM - Extremity (Nontraumatic) <Sirena Li, DO - Last Filed: 06/21/24 21:40> Lab Data 06/21/24 00:58 06/21/24 00:58 Labs: Lab Results 06/21/24 06/21/24 06/21/24 Range/Units 00:58 02:03 13:32 WBC 6.3 (4.5-11.0) X10^3/uL RBC 4.42 L (4.5-5.9) X10^6/uL Hgb 13.5 (13.5-17.5) g/dL Hct 39.8 L (41-53) % MCV 90.0 (80-100) fL MCH 30.6 (26-34) PG MCHC 34.0 (30-36) % RDW 13.9 (11.6-14.8) % Plt Count 293 (150-400) X10^3/uL Neut % (Auto) 67.6 (50-75) % Lymph % (Auto) 20.8 L (25-40) % [place] % (Auto) 8.8 (3-14) % Eos % (Auto) 2.3 (2-4) % Baso % (Auto) 0.5 (0-2) % Neut # (Auto) 4300 (1503-5738) /uL Lymph # (Auto) 1300 (5460-7586) /uL [place] # (Auto) 600 (0-900) /uL Eos # (Auto) 100 (0-450) /uL Baso # (Auto) 0 (0-100) /uL PT 18.4 H (9.4-12.5) SECONDS INR 1.6 H (0.9-1.3) APTT 208 H* (25.1-36.5) SECONDS Sodium 137 (137-145) mmol/L Potassium 3.7 (3.4-5.1) mmol/L Chloride 104 (98-107) mmol/L Carbon Dioxide 28 (22-32) mmol/L BUN 13 (9-20) mg/dL Creatinine 0.85 (0.66-1.25) mg/dL Estimated GFR > 60 (>60) mL/min BUN/Creatinine Ratio 15.3 (6-22) Glucose 121 H (80-110) mg/dL Calcium 8.6 (8.4-10.2) mg/dL Total Bilirubin 1.2 (0.2-1.3) mg/dL AST 81 H (17-59) IU/L ALT 73 H (<50) IU/L Alkaline Phosphatase 188 H (38-126) U/L Total Creatine Kinase 38 L (55-170) U/L Troponin I 0.041 H 0.033 (0.01-0.034) ng/mL Total Protein 8.5 H (6.3-8.2) g/dL Albumin 3.7 (3.5-5.0) g/dL Globulin 4.8 H (1.7-4.1) g/dL Albumin/Globulin Ratio 0.8 L (1.0-2.8) 06/21/24 Range/Units 18:52 WBC (4.5-11.0) X10^3/uL RBC (4.5-5.9) X10^6/uL Hgb (13.5-17.5) g/dL Hct (41-53) % MCV (80-100) fL MCH (26-34) PG MCHC (30-36) % RDW (11.6-14.8) % Plt Count (150-400) X10^3/uL Neut % (Auto) (50-75) % Lymph % (Auto) (25-40) % [place] % (Auto) (3-14) % Eos % (Auto) (2-4) % Baso % (Auto) (0-2) % Neut # (Auto) (9650-0352) /uL Lymph # (Auto) (3508-6466) /uL [place] # (Auto) (0-900) /uL Eos # (Auto) (0-450) /uL Baso # (Auto) (0-100) /uL PT (9.4-12.5) SECONDS INR (0.9-1.3) APTT 79 H* D (25.1-36.5) SECONDS Sodium (137-145) mmol/L Potassium (3.4-5.1) mmol/L Chloride (98-107) mmol/L Carbon Dioxide (22-32) mmol/L BUN (9-20) mg/dL Creatinine (0.66-1.25) mg/dL Estimated GFR (>60) mL/min BUN/Creatinine Ratio (6-22) Glucose (80-110) mg/dL Calcium (8.4-10.2) mg/dL Total Bilirubin (0.2-1.3) mg/dL AST (17-59) IU/L ALT (<50) IU/L Alkaline Phosphatase (38-126) U/L Total Creatine Kinase (55-170) U/L Troponin I (0.01-0.034) ng/mL Total Protein (6.3-8.2) g/dL Albumin (3.5-5.0) g/dL Globulin (1.7-4.1) g/dL Albumin/Globulin Ratio (1.0-2.8) Imaging Data US - DVT: Radiologist's Impression: PROCEDURE: US PERIPH VENOUS LOW EXTREM LT INDICATIONS: swelling/pain in Left lower leg TECHNIQUE: Real-time imaging, as well as color and pulse Doppler interrogation, were performed of the lower extremity deep veins from the inguinal ligament to the popliteal fossa, with documentation of the visualized calf veins. COMPARISON: None. FINDINGS: Occlusive deep venous thrombus is seen within the central radial saphenous vein as well as the common femoral, femoral, profunda femoral, and popliteal veins. Calf veins are not well seen due to overlying edema in the lower leg. IMPRESSION: Extensive occlusive deep venous thrombus throughout left lower extremity. Findings were discussed with the referring provider, Dr. Li, by telephone on 06/20/2024 at 11:14 PM. Approved by: Lisandro Durham M.D. on 06/20/2024 at 23:14 Extremity x-ray #1: Radiologist's Impression: PROCEDURE: XR KNEE LT 3V INDICATIONS: pain, recent fall TECHNIQUE: 3 views of the knee were acquired. COMPARISON: [facility], , XR KNEE 4+ VIEWS LEFT, 01/01/2024, 10:10. FINDINGS: Bones: Postsurgical changes from total knee arthroplasty. Hardware components are in stable positions. No acute osseous abnormality. Soft tissues: No joint effusion. No suspicious soft tissue calcifications. Nonspecific soft tissue edema. IMPRESSION: Postsurgical changes from total knee arthroplasty with hardware components in stable positions. No acute hardware complication or acute osseous abnormality. Approved by: Lisandro Durham M.D. on 06/20/2024 at 23:34 CT scan - chest: Radiologist's Impression: PROCEDURE: CT ANGIO CHEST PE PROTOCOL INDICATIONS: right sided pain with known dvt TECHNIQUE: After the administration of intravenous contrast, 2 mm thick sections acquired from the pulmonary apices to the posterior costophrenic angles. 3-dimensional maximum intensity projection (MIP) coronal and sagittal reformats were then acquired through the thorax. For radiation dose reduction, the following was used: automated exposure control, adjustment of mA and/or kV according to patient size. COMPARISON: None. FINDINGS: Image quality: Diagnostic. Pulmonary arteries: Filling defect at the left lower lobe pulmonary artery extending into multiple basilar segmental and subsegmental branches. Segmental and subsegmental pulmonary emboli at the right lower lobe. No definite filling defect in the right upper or middle lobe pulmonary arteries. Main pulmonary artery is normal in size. No enlargement of the right ventricle or reflux of contrast material into the hepatic veins. Lower Neck: No enlarged lymph nodes. Thyroid: No thyroid nodules which require sonographic follow up, per consensus guidelines. Axillae: No enlarged lymph nodes. Chest Wall: Unremarkable. Bones: Unremarkable. Lungs and Pleura: No pneumothorax or pleural effusions. Small peripheral opacities at the posterior right lung base and extreme left lung base may represent atelectasis versus small infarct. No suspicious pulmonary nodule that requires dedicated imaging follow-up. Heart: Heart size is borderline. No pericardial effusion. Moderate coronary artery calcifications. Thoracic Vessels: No aortic aneurysm. Mediastinum and Jami: No enlarged lymph nodes. Esophagus: No wall thickening. No hiatal hernia. Upper Abdomen: Nodular liver surface is suspicious for cirrhosis. Spleen appears prominent, but is not completely imaged. Stomach is distended with food material. IMPRESSION: 1. Bilateral acute pulmonary emboli, of all vein the left lower lobe pulmonary artery extending into the segmental and subsegmental branches and segmental branches of the right lower lobe pulmonary artery. No CT signs of right heart strain. 2. Small peripheral opacities at the lung bases may be secondary to atelectasis or small infarcts. 3. Nodular appearance of the liver is suspicious for cirrhosis. Findings were discussed with the referring provider, Dr. Li, by telephone 06/21/2024 at 1:50 AM. Approved by: Lisandro Durham M.D. on 06/21/2024 at 1:51 MDM Narrative Medical decision making narrative: Patient 74-year-old male presents today with extensive left leg swelling ongoing for number of weeks. Pain is pretty significant requiring wheelchair assistance and pain medication. He was noted to be tachycardic but not hypoxic. There certainly can concern for pulmonary embolism. He has a distal pedal pulse no evidence of phlegmasia alba or cerula dolens. There is concern for pulmonary embolism especially with right-sided pain and extensive DVT Blood work has been reviewed A no anemia or leukocytosis Troponin 0.041 with repeat 0.03 He does have elevated AST at 81, ALT 73 alk-phos 188 bilirubin normal at 1.2 CT chest does confirm bilateral pulmonary emboli or in the left lower lobe extending into segmental and subsegmental branches no sign of right heart strain, also suspicion of cirrhosis in the liver CT abdomen pelvis thrombus extends into the pelvis Patient is given Eliquis 10 mg in the ED along with [place] Patient has had multiple weeks of left lower leg pain and swelling. I suspect he has had pulmonary embolism for some time as well. At this time he was not hypotensive or hypoxic no evidence of right heart strain on CT no significant elevation of troponin. At this time patient can be anticoagulated discharged home with pain medication he was waiting for friends and people to wake up to help him get situated at home I suspect DVT is secondary to travel flying and immobility June 21, 2024 at 7:00 a.m..Josh: ?sign out from Dr Li, patient is hemodynamically stable. Patient has bilateral PEs and DVT. Eliquis has been started. However CT abdomen pelvis will be needed to be ordered to evaluate for extension into the pelvic region, if needed, may need Interventional Radiology. That would require transfer. Otherwise patient will need physical therapy evaluation for ambulation. May need rehabilitation center. 9:00 a.m.. Updated patient will need transfer for interventional radiology because the clots extend into the pelvis. 12:18 p.m.. Spoke with [facility], Dr. Oliver, she will accept patient. She would like to start heparin bolus and heparin drip. 6:00 p.m. Josh: Sign out to Dr Li, patient has been accepted to [facility]. Patient has been stable. Patient is on heparin drip. Dr. Li-patient transferred with out issue <Kb Moreno MD - Last Filed: 06/24/24 19:48> Lab Data Labs: Lab Results 06/21/24 06/21/24 06/21/24 Range/Units 00:58 02:03 13:32 WBC 6.3 (4.5-11.0) X10^3/uL RBC 4.42 L (4.5-5.9) X10^6/uL Hgb 13.5 (13.5-17.5) g/dL Hct 39.8 L (41-53) % MCV 90.0 (80-100) fL MCH 30.6 (26-34) PG MCHC 34.0 (30-36) % RDW 13.9 (11.6-14.8) % Plt Count 293 (150-400) X10^3/uL Neut % (Auto) 67.6 (50-75) % Lymph % (Auto) 20.8 L (25-40) % [place] % (Auto) 8.8 (3-14) % Eos % (Auto) 2.3 (2-4) % Baso % (Auto) 0.5 (0-2) % Neut # (Auto) 4300 (8709-0866) /uL Lymph # (Auto) 1300 (4936-5461) /uL [place] # (Auto) 600 (0-900) /uL Eos # (Auto) 100 (0-450) /uL Baso # (Auto) 0 (0-100) /uL PT 18.4 H (9.4-12.5) SECONDS INR 1.6 H (0.9-1.3) APTT 208 H* (25.1-36.5) SECONDS Sodium 137 (137-145) mmol/L Potassium 3.7 (3.4-5.1) mmol/L Chloride 104 (98-107) mmol/L Carbon Dioxide 28 (22-32) mmol/L BUN 13 (9-20) mg/dL Creatinine 0.85 (0.66-1.25) mg/dL Estimated GFR > 60 (>60) mL/min BUN/Creatinine Ratio 15.3 (6-22) Glucose 121 H (80-110) mg/dL Calcium 8.6 (8.4-10.2) mg/dL Total Bilirubin 1.2 (0.2-1.3) mg/dL AST 81 H (17-59) IU/L ALT 73 H (<50) IU/L Alkaline Phosphatase 188 H (38-126) U/L Total Creatine Kinase 38 L (55-170) U/L Troponin I 0.041 H 0.033 (0.01-0.034) ng/mL Total Protein 8.5 H (6.3-8.2) g/dL Albumin 3.7 (3.5-5.0) g/dL Globulin 4.8 H (1.7-4.1) g/dL Albumin/Globulin Ratio 0.8 L (1.0-2.8) 06/21/24 Range/Units 18:52 WBC (4.5-11.0) X10^3/uL RBC (4.5-5.9) X10^6/uL Hgb (13.5-17.5) g/dL Hct (41-53) % MCV (80-100) fL MCH (26-34) PG MCHC (30-36) % RDW (11.6-14.8) % Plt Count (150-400) X10^3/uL Neut % (Auto) (50-75) % Lymph % (Auto) (25-40) % [place] % (Auto) (3-14) % Eos % (Auto) (2-4) % Baso % (Auto) (0-2) % Neut # (Auto) (4405-1669) /uL Lymph # (Auto) (8025-5236) /uL [place] # (Auto) (0-900) /uL Eos # (Auto) (0-450) /uL Baso # (Auto) (0-100) /uL PT (9.4-12.5) SECONDS INR (0.9-1.3) APTT 79 H* D (25.1-36.5) SECONDS Sodium (137-145) mmol/L Potassium (3.4-5.1) mmol/L Chloride (98-107) mmol/L Carbon Dioxide (22-32) mmol/L BUN (9-20) mg/dL Creatinine (0.66-1.25) mg/dL Estimated GFR (>60) mL/min BUN/Creatinine Ratio (6-22) Glucose (80-110) mg/dL Calcium (8.4-10.2) mg/dL Total Bilirubin (0.2-1.3) mg/dL AST (17-59) IU/L ALT (<50) IU/L Alkaline Phosphatase (38-126) U/L Total Creatine Kinase (55-170) U/L Troponin I (0.01-0.034) ng/mL Total Protein (6.3-8.2) g/dL Albumin (3.5-5.0) g/dL Globulin (1.7-4.1) g/dL Albumin/Globulin Ratio (1.0-2.8) Imaging Data CT scan - abdomen/pelvis: My Impression: [address] [address] [address] Scan Report Signed Patient: Bear Godwin MR#: [id number] : 1950 Acct:[id number] Age/Sex: 74 / M Date of Service: 06/21/24 Loc: ED Accession Number: [id number] Procedure: CT abdomen pelvis w con Ordering Provider: Kb Moreno MD PROCEDURE: CT ABDOMEN PELVIS W CON INDICATIONS: iv contrast only/pelvic pain/left leg dvt TECHNIQUE: After the administration of intravenous contrast, axial sections acquired from the lung bases to the pubic symphysis. Coronal and sagittal reformats were performed. For radiation dose reduction, the following was used: automated exposure control, adjustment of mA and/or kV according to patient size. COMPARISON: None. FINDINGS: Image quality: Diagnostic. Lower Chest: Small infiltrate/atelectasis in posterior aspect of bilateral lung bases are seen. Heart size is mildly enlarged, no pericardial effusion. ABDOMEN: Liver: No solid mass. Gallbladder: No radiopaque gallstones or wall thickening. Biliary ducts: No biliary dilation. Pancreas: No ductal dilation. Spleen: Size is within normal limits. Adrenal Glands: No adrenal nodules. Kidneys and Ureters: No obstructing renal stones or hydronephrosis. No solid mass. No complex renal cystic lesion which requires follow up. Stomach and Bowel: There is no bowel obstruction. No abnormal bowel wall thickening or mesenteric fat stranding. No abscess collection. Peritoneum: No abnormal intraperitoneal fluid. No free air. Ventral Wall: No significant ventral hernia. Abdominal Nodes: No retroperitoneal or mesenteric adenopathy by size criteria. Vessels: Aorta is normal in size. Asymmetrically enlarged left superficial femoral vein, common femoral vein, left iliac veins extending to distal IVC with questionable intraluminal filling defect consistent with patient's clinical history of left leg DVT. PELVIS: Pelvic Organs: Enlarged prostate gland with mass effect on floor of urinary bladder is seen.. Bladder: Diffuse bladder wall thickening is seen, no definite bladder wall mass. Pelvic Nodes: No enlarged lymph nodes. Miscellaneous: No inguinal hernias are seen. Bones: No aggressive osseous abnormality. IMPRESSION: 1. Finding is concerning for deep venous thrombosis involving left femoral veins, iliac veins extending to the distal IVC. 2. No bowel obstruction or abnormal bowel wall thickening. No free fluid or free air. 3. Bibasilar small infiltrate/atelectasis. 4. Enlarged prostate gland with mass effect on floor of urinary bladder and diffuse bladder wall thickening suggestive of chronic bladder outlet obstruction. Dictated by: Law Hull M.D. on 06/21/2024 at 8:19 Approved by: Law Hull M.D. on 06/21/2024 at 8:33 MDM Narrative Medical decision making narrative: Patient 74-year-old male presents today with extensive left leg swelling ongoing for number of weeks. Pain is pretty significant requiring wheelchair assistance and pain medication. He was noted to be tachycardic but not hypoxic. There certainly can concern for pulmonary embolism. He has a distal pedal pulse no evidence of phlegmasia alba or cerula dolens. There is concern for pulmonary embolism especially with right-sided pain and extensive DVT Blood work has been reviewed A no anemia or leukocytosis Troponin 0.041 with repeat 0.03 He does have elevated AST at 81, ALT 73 alk-phos 188 bilirubin normal at 1.2 CT chest does confirm bilateral pulmonary emboli or in the left lower lobe extending into segmental and subsegmental branches no sign of right heart strain, also suspicion of cirrhosis in the liver CT abdomen pelvis thrombus extends into the pelvis Patient is given Eliquis 10 mg in the ED along with [place] Patient has had multiple weeks of left lower leg pain and swelling. I suspect he has had pulmonary embolism for some time as well. At this time he was not hypotensive or hypoxic no evidence of right heart strain on CT no significant elevation of troponin. At this time patient can be anticoagulated discharged home with pain medication he was waiting for friends and people to wake up to help him get situated at home I suspect DVT is secondary to travel flying and immobility June 21, 2024 at 7:00 a.m..Josh: ?sign out from Dr Li, patient is hemodynamically stable. Patient has bilateral PEs and DVT. Eliquis has been started. However CT abdomen pelvis will be needed to be ordered to evaluate for extension into the pelvic region, if needed, may need Interventional Radiology. That would require transfer. Otherwise patient will need physical therapy evaluation for ambulation. May need rehabilitation center. 9:00 a.m.. Updated patient will need transfer for interventional radiology because the clots extend into the pelvis. 12:18 p.m.. Spoke with [facility], Dr. Oliver, she will accept patient. She would like to start heparin bolus and heparin drip. 6:00 p.m. Josh: Sign out to Dr Li, patient has been accepted to [facility]. Patient has been stable. Patient is on heparin drip. Discharge Plan Departure Patient Disposition: [facility] Clinical Impression: Pulmonary embolism Qualifiers: Pulmonary embolism type: unspecified Chronicity: acute Acute cor pulmonale presence: without acute cor pulmonale Qualified Code(s): I26.99 - Other pulmonary embolism without acute cor pulmonale DVT (deep venous thrombosis) Qualifiers: DVT location: lower extremity Affected thrombotic vein of extremity: u nspecified vein of extremity Chronicity: acute Laterality: left Qualified Code(s): I82.402 - Acute embolism and thrombosis of unspecified deep veins of left lower extremity Prescriptions: New EliYellow Chip DVT-PE Treat 30D Start 5 mg (74 tabs) tablets,dose pack See Rx Instructions .ROUTE .COMPLEX Qty: 74 0RF Rx Instructions: orally per package directions hydrocodone-acetaminophen 5-325 mg tablet 1 tab PO Q6H PRN (Reason: pain) Qty: 10 0RF No Action Cosentyx Pen (2 Pens) 150 mg/mL pen injector 150 mg SUBCUT Q4W Patient Comments: [NO ORIGINAL SIG] meloxicam 15 mg tablet 15 mg PO DAILY PRN (Reason: joint pain) Qty: 90 1RF acetaminophen 325 mg Tablet 650 mg PO Q6H PRN (Reason: Fever/Mild Pain (1-3)) Qty: 60 0RF aspirin 81 mg Tablet,Delayed Release (Dr/Ec) 81 mg PO BID Qty: 90 0RF polyethylene glycol 3350 17 gram Powder In Packet 17 g PO DAILY PRN (Reason: Constipation) Qty: 14 0RF Referrals: Zhao Brannon MD [Primary Care Provider] - Stand Alone Forms: Patient Portal/API/Survey
--- NOTE | 2024-06-21 00:40 | DI.CT.S_ITS ---
PROCEDURE: CT ANGIO CHEST PE PROTOCOL INDICATIONS: right sided pain with known dvt TECHNIQUE: After the administration of intravenous contrast, 2 mm thick sections acquired from the pulmonary apices to the posterior costophrenic angles. 3-dimensional maximum intensity projection (MIP) coronal and sagittal reformats were then acquired through the thorax. For radiation dose reduction, the following was used: automated exposure control, adjustment of mA and/or kV according to patient size. COMPARISON: None. FINDINGS: Image quality: Diagnostic. Pulmonary arteries: Filling defect at the left lower lobe pulmonary artery extending into multiple basilar segmental and subsegmental branches. Segmental and subsegmental pulmonary emboli at the right lower lobe. No definite filling defect in the right upper or middle lobe pulmonary arteries. Main pulmonary artery is normal in size. No enlargement of the right ventricle or reflux of contrast material into the hepatic veins. Lower Neck: No enlarged lymph nodes. Thyroid: No thyroid nodules which require sonographic follow up, per consensus guidelines. Axillae: No enlarged lymph nodes. Chest Wall: Unremarkable. Bones: Unremarkable. Lungs and Pleura: No pneumothorax or pleural effusions. Small peripheral opacities at the posterior right lung base and extreme left lung base may represent atelectasis versus small infarct. No suspicious pulmonary nodule that requires dedicated imaging follow-up. Heart: Heart size is borderline. No pericardial effusion. Moderate coronary artery calcifications. Thoracic Vessels: No aortic aneurysm. Mediastinum and Jami: No enlarged lymph nodes. Esophagus: No wall thickening. No hiatal hernia. Upper Abdomen: Nodular liver surface is suspicious for cirrhosis. Spleen appears prominent, but is not completely imaged. Stomach is distended with food material. IMPRESSION: 1. Bilateral acute pulmonary emboli, of all vein the left lower lobe pulmonary artery extending into the segmental and subsegmental branches and segmental branches of the right lower lobe pulmonary artery. No CT signs of right heart strain. 2. Small peripheral opacities at the lung bases may be secondary to atelectasis or small infarcts. 3. Nodular appearance of the liver is suspicious for cirrhosis. Findings were discussed with the referring provider, Dr. Li, by telephone 06/21/2024 at 1:50 AM. Approved by: Lisandro Durham M.D. on 06/21/2024 at 1:51
[2024-06-21 01:12] LABS: Add Manual Diff / Slide Review NO; Basophils Absolute Auto 0 /uL (0-100); Basophils Percent Auto 0.5 % (0-2); Eosinophils Absolute Auto 100 /uL (0-450); Eosinophils Percent Auto 2.3 % (2-4); Hematocrit 39.8 % (41-53); Hemoglobin 13.5 g/dL (13.5-17.5); Lymphocytes Absolute Auto 1300 /uL (1100-4500); Lymphocytes Percent Auto 20.8 % (25-40); Mean Corpuscular Hemoglobin 30.6 PG (26-34); Monocytes Absolute Auto 600 /uL (0-900); Monocytes Percent Auto 8.8 % (3-14); Neutrophils Absolute Auto 4300 /uL (1500-7000); Neutrophils Percent Auto 67.6 % (50-75); Platelet Count 293 X10^3/uL (150-400); Red Blood Cell Count 4.42 X10^6/uL (4.5-5.9); Red Cell Distribution Width 13.9 % (11.6-14.8); White Blood Cell Count 6.3 X10^3/uL (4.5-11.0)
[2024-06-21 01:22] LABS: Alanine Aminotransferase 73 IU/L (<50); Albumin 3.7 g/dL (3.5-5.0); Albumin Globulin Ratio 0.8 (1.0-2.8); Alkaline Phosphatase 188 U/L (38-126); Aspartate Aminotransferase 81 IU/L (17-59); BUN Creatinine Ratio 15.3 (6-22); Bilirubin Total 1.2 mg/dL (0.2-1.3); Blood Urea Nitrogen 13 mg/dL (9-20); Calcium 8.6 mg/dL (8.4-10.2); Carbon Dioxide 28 mmol/L (22-32); Chloride 104 mmol/L (98-107); Creatine Kinase 38 U/L (55-170); Estimated Glomerular Filt Rate > 60 mL/min (>60); Globulin 4.8 g/dL (1.7-4.1); Glucose 121 mg/dL (80-110); HEMOLYSIS 15 (0-50); Potassium 3.7 mmol/L (3.4-5.1); Sodium 137 mmol/L (137-145); Total Protein 8.5 g/dL (6.3-8.2)
[2024-06-21 01:34] LABS: Troponin I 0.041 ng/mL (0.01-0.034)
[2024-06-21] MEDS: APIXABAN 5 MG TABLET 10 MG PO (01:57)
--- NOTE | 2024-06-21 02:05 | PC.NURSE ---
Repeat troponin drawn from existing IV line without complications.
[2024-06-21 02:32] LABS: Troponin I 0.033 ng/mL (0.01-0.034)
[2024-06-21] MEDS: HYDROCODONE/ACET 5/325 TABLET 1 TAB PO (05:29)
--- NOTE | 2024-06-21 07:21 | DI.CT.S_ITS ---
PROCEDURE: CT ABDOMEN PELVIS W CON INDICATIONS: iv contrast only/pelvic pain/left leg dvt TECHNIQUE: After the administration of intravenous contrast, axial sections acquired from the lung bases to the pubic symphysis. Coronal and sagittal reformats were performed. For radiation dose reduction, the following was used: automated exposure control, adjustment of mA and/or kV according to patient size. COMPARISON: None. FINDINGS: Image quality: Diagnostic. Lower Chest: Small infiltrate/atelectasis in posterior aspect of bilateral lung bases are seen. Heart size is mildly enlarged, no pericardial effusion. ABDOMEN: Liver: No solid mass. Gallbladder: No radiopaque gallstones or wall thickening. Biliary ducts: No biliary dilation. Pancreas: No ductal dilation. Spleen: Size is within normal limits. Adrenal Glands: No adrenal nodules. Kidneys and Ureters: No obstructing renal stones or hydronephrosis. No solid mass. No complex renal cystic lesion which requires follow up. Stomach and Bowel: There is no bowel obstruction. No abnormal bowel wall thickening or mesenteric fat stranding. No abscess collection. Peritoneum: No abnormal intraperitoneal fluid. No free air. Ventral Wall: No significant ventral hernia. Abdominal Nodes: No retroperitoneal or mesenteric adenopathy by size criteria. Vessels: Aorta is normal in size. Asymmetrically enlarged left superficial femoral vein, common femoral vein, left iliac veins extending to distal IVC with questionable intraluminal filling defect consistent with patient's clinical history of left leg DVT. PELVIS: Pelvic Organs: Enlarged prostate gland with mass effect on floor of urinary bladder is seen.. Bladder: Diffuse bladder wall thickening is seen, no definite bladder wall mass. Pelvic Nodes: No enlarged lymph nodes. Miscellaneous: No inguinal hernias are seen. Bones: No aggressive osseous abnormality. IMPRESSION: 1. Finding is concerning for deep venous thrombosis involving left femoral veins, iliac veins extending to the distal IVC. 2. No bowel obstruction or abnormal bowel wall thickening. No free fluid or free air. 3. Bibasilar small infiltrate/atelectasis. 4. Enlarged prostate gland with mass effect on floor of urinary bladder and diffuse bladder wall thickening suggestive of chronic bladder outlet obstruction. Dictated by: Law Hull M.D. on 06/21/2024 at 8:19 Approved by: Law Hull M.D. on 06/21/2024 at 8:33
--- NOTE | 2024-06-21 08:46 | PC.NURSE ---
This [employer]IST ambulated patient to get baseline for the morning. Patient was able to sit and stand at bedside without complications. As patient started to ambulate outside the room, they stated that their pain was shooting to a 7/10 pain. Patient got as far as the nurse's station before having to ambulate back to bed. Dr and nurse notified.
[2024-06-21] MEDS: SODIUM CHLORIDE 0.9% 250 ML 1000 ML IV (09:09)
[2024-06-21] MEDS: HEPARIN DRIP 25,000 UNIT/500 ML IV.SOLN 34.291 UNIT IV (12:32)
[2024-06-21] MEDS: HEPARIN 5,000 UNIT/ML VIAL 7500 UNIT IV (12:34)
[2024-06-21 13:47] LABS: INR 1.6 (0.9-1.3); Prothrombin Time 18.4 SECONDS (9.4-12.5)
[2024-06-21 14:02] LABS: PTT Partial Thromboplastin Tim 208 SECONDS (25.1-36.5)
[2024-06-21] MEDS: DOCUSATE 100 MG CAPSULE PO (17:13)
--- NOTE | 2024-06-21 18:44 | PC.NURSE ---
[facility] [place] Note: Transfer for patient started at 1023. [facility], not waitlisted, advised to call after 1600 for possible placement. [place], waitlisted, cancelled waitlist at 1219. /[facility], waitlisted, declined transfer at 1015. [facility], waitlisted, accepted by Dr. Oliver at 1211, bed assigned at 1830. Nurse Report: [phone]. [phone]. Arranged transport with [facility] 1929. Called to advise of 2199 ETA.
[2024-06-21 19:16] LABS: PTT Partial Thromboplastin Tim 79 SECONDS (25.1-36.5)
--- NOTE | 2024-06-21 19:16 | PC.NURSE ---
Patient's PPT resulted at 79, no dose adjustment at this time ontiveros to Heparin Protocol.
--- NOTE | 2024-06-21 20:01 | PC.NURSE ---
Patient's Heparin infusing at 14units/kg/hr and handoff to [facility] with dose verification.
== END 2024-06-21 19:55 | disposition short-term general hospital (02) ==
PROVIDERS: Emergency Medicine; Emergency Provider Emergency Medicine; PCP Family Medicine
DX: I82.402 Acute embolism and thrombosis of unspecified deep veins of left lower extremity (principal); I26.99 Other pulmonary embolism without acute cor pulmonale; M25.562 Pain in left knee; R07.9 Chest pain, unspecified; R00.0 Tachycardia, unspecified; R10.2 Pelvic and perineal pain
CPT/HCPCS: 36415; 71275; 73562; 74177; 80053; 82550; 84484; 85025; 85610; 85730; 93971; 96361; 96365; 96366; 96375; 99284; 99285; J1644; Q9967

== ENCOUNTER → 2024-07-12 12:41 | Outpatient (CLI) | payer MEDICARE, MEDICAID, SELFPAY ==
[2023-12-22 13:03] VITALS: BMI 29.0
[2024-07-12 13:01] LABS: Add Manual Diff / Slide Review NO; Basophils Absolute Auto 0 /uL (0-100); Basophils Percent Auto 0.9 % (0-2); Eosinophils Absolute Auto 200 /uL (0-450); Eosinophils Percent Auto 3.5 % (2-4); Hematocrit 38.1 % (41-53); Hemoglobin 12.8 g/dL (13.5-17.5); Lymphocytes Absolute Auto 1400 /uL (1100-4500); Lymphocytes Percent Auto 28.2 % (25-40); Mean Corpuscular HGB Conc 33.7 % (30-36); Mean Corpuscular Hemoglobin 30.9 PG (26-34); Mean Corpuscular Volume 91.8 fL (80-100); Monocytes Absolute Auto 400 /uL (0-900); Monocytes Percent Auto 8.2 % (3-14); Neutrophils Absolute Auto 3000 /uL (1500-7000); Neutrophils Percent Auto 59.2 % (50-75); Platelet Count 195 X10^3/uL (150-400); Red Blood Cell Count 4.15 X10^6/uL (4.5-5.9); Red Cell Distribution Width 15.2 % (11.6-14.8); White Blood Cell Count 5.1 X10^3/uL (4.5-11.0)
[2024-07-12 13:10] LABS: INR 1.2 (0.9-1.3); Prothrombin Time 13.2 SECONDS (9.4-12.5)
[2024-07-12 13:12] LABS: PTT Partial Thromboplastin Tim 36 SECONDS (25.1-36.5)
[2024-07-12 13:20] LABS: Cholesterol 136 mg/dL (140-199); HDL Cholesterol 53 mg/dL (40-60); LDL Cholesterol Calculated 63 mg/dL (<100); Triglycerides 98 mg/dL (35-150)
[2024-07-12 13:48] LABS: Erythrocyte Sedimentation Rate 44 MM/HR (0-15)
== END ==
PROVIDERS: PCP Family Medicine; Referring Provider Family Medicine; Visit Provider Family Medicine
DX: I82.409 Acute embolism and thrombosis of unspecified deep veins of unspecified lower extremity (principal); Z13.220 Encounter for screening for lipoid disorders; I26.99 Other pulmonary embolism without acute cor pulmonale
CPT/HCPCS: 36415; 80061; 85025; 85610; 85651; 85730

== ENCOUNTER 2024-07-28 11:54 | Emergency (ER) | payer MEDICARE, MEDICAID, SELFPAY ==
[2023-12-22 13:03] VITALS: BMI 29.0
[2024-07-28] VITALS (17 sets, daily range): BP systolic 105–166; BP diastolic 65–80; PULSE 50–102; RESP 13–22; TEMP 36.5; O2SAT 96–98; BMI 29.7
--- NOTE | 2024-07-28 12:24 | EKG_ITS ---
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
--- NOTE | 2024-07-28 12:27 | DI.US.S_ITS ---
PROCEDURE: US PERIP VENOUS LOW EXTREM LT INDICATIONS: Increased pain and swelling left side, known DVT TECHNIQUE: Real-time imaging, as well as color and pulse Doppler interrogation, were performed of the lower extremity deep veins from the inguinal ligament to the popliteal fossa, with documentation of the visualized calf veins. COMPARISON: [facility], [facility] VENOUS LOW EXTREM LT, 06/20/2024, 22:53. FINDINGS: Extensive intraluminal filling defects throughout left femoral vein, superficial femoral vein, popliteal vein and left greater saphenous vein extending to the left external iliac vein is seen with absence of flow. IMPRESSION: Extensive occlusive venous thrombosis throughout visualized left lower extremity veins as above. Dictated by: Law Hull M.D. on 07/28/2024 at 13:31 Approved by: Law Hull M.D. on 07/28/2024 at 13:35
[2024-07-28 12:41] LABS: Add Manual Diff / Slide Review NO; Basophils Absolute Auto 0 /uL (0-100); Basophils Percent Auto 0.7 % (0-2); Eosinophils Absolute Auto 200 /uL (0-450); Eosinophils Percent Auto 4.8 % (2-4); Hemoglobin 14.6 g/dL (13.5-17.5); Lymphocytes Absolute Auto 1700 /uL (1100-4500); Lymphocytes Percent Auto 37.5 % (25-40); Mean Corpuscular HGB Conc 33.9 % (30-36); Mean Corpuscular Hemoglobin 31.4 PG (26-34); Mean Corpuscular Volume 92.7 fL (80-100); Monocytes Absolute Auto 400 /uL (0-900); Monocytes Percent Auto 9.2 % (3-14); Neutrophils Absolute Auto 2100 /uL (1500-7000); Neutrophils Percent Auto 47.8 % (50-75); Platelet Count 163 X10^3/uL (150-400); Red Blood Cell Count 4.64 X10^6/uL (4.5-5.9); Red Cell Distribution Width 15.9 % (11.6-14.8); White Blood Cell Count 4.5 X10^3/uL (4.5-11.0)
[2024-07-28 12:50] LABS: INR 1.1 (0.9-1.3); Prothrombin Time 12.9 SECONDS (9.4-12.5)
[2024-07-28 12:52] LABS: PTT Partial Thromboplastin Tim 38 SECONDS (25.1-36.5)
[2024-07-28 12:55] LABS: Alanine Aminotransferase 23 IU/L (<50); Albumin 4.7 g/dL (3.5-5.0); Alkaline Phosphatase 87 U/L (38-126); Aspartate Aminotransferase 35 IU/L (17-59); Bilirubin Total 0.9 mg/dL (0.2-1.3); Blood Urea Nitrogen 22 mg/dL (9-20); Carbon Dioxide 19 mmol/L (22-32); Chloride 106 mmol/L (98-107); Creatine Kinase 52 U/L (55-170); Estimated Glomerular Filt Rate > 60 mL/min (>60); Globulin 4.8 g/dL (1.7-4.1); Glucose 122 mg/dL (80-110); HEMOLYSIS 20 (0-50); Lipase 201 U/L (23-300); Magnesium 1.8 mg/dL (1.6-2.3); Potassium 4.2 mmol/L (3.4-5.1); Sodium 137 mmol/L (137-145); Total Protein 9.5 g/dL (6.3-8.2)
[2024-07-28 13:07] LABS: NT-proBNP (BNP-Adult 18+) 32 pg/mL (<125); Troponin I 0.017 ng/mL (0.01-0.034)
--- NOTE | 2024-07-28 16:05 | ED.LOWEXIN ---
HPI - Extremity Injury (Lower) <Nitza Clarke MD - Last Filed: 07/28/24 19:26> General Chief Complaint: Extremity Injury, Lower Stated Complaint: left leg, groin px Time Seen by Provider: 07/28/24 12:07 Mode of arrival: Ambulatory History of Present Illness HPI Narrative: 74-year-old gentleman with a history of psoriatic arthritis, left knee replacement [address] [facility] on June 21 diagnosed with bilateral pulmonary emboli and extensive left lower extremity DVT eventually transferred to [facility]. Was eventually discharged home with apixaban which he has continued. He presents again today complaining of significant increase in pain swelling and redness in the entire left lower extremity again. Describes no significant trauma. He has been taking his apixaban. With his recent [facility] stay. Vascular surgery was consulted for consideration of thrombectomy but patient declined that time. Related Data Home Medications Medication Instructions Recorded Confirmed secukinumab 150 mg/mL subcutaneous 150 mg SUBCUT Q4W 11/03/23 03/31/24 pen injector (Cosentyx Pen 300 mg/2 Pens () Previous Rx's Medication Instructions Recorded acetaminophen 325 mg tablet 650 mg (2 x 325 mg) PO Q6H PRN 12/23/23 Fever/Mild Pain (1-3) #60 tabs aspirin 81 mg tablet,delayed 81 mg PO BID #90 tabs 12/23/23 release polyethylene glycol 3350 17 gram 17 g PO DAILY PRN Constipation #14 12/23/23 oral powder packet ea meloxicam 15 mg tablet 15 mg PO DAILY PRN joint pain #90 03/31/24 tabs apixaban 5 mg tablet 5 mg PO BID #180 tabs 07/01/24 Allergies Allergy/AdvReac Type Severity Reaction Status Date / Time No Known Drug Allergies Allergy Verified 07/28/24 11:56 Review of Systems <Nitza Clarke MD - Last Filed: 07/28/24 19:26> Review of Systems Narrative: Pertinent positive and negative findings as per HPI Patient History <Nitza Clarke MD - Last Filed: 07/28/24 19:26> Medical History (Updated 07/28/24 @ 18:13 by Jv Whitman DO) Depression Anxiety Psoriatic arthritis Hypoglycemia Learning disability PTSD (post-traumatic stress disorder) Sinus congestion Psoriasis Hepatitis B Hepatitis C H/O intravenous drug use in remission Mallet finger of left hand Osteoarthritis of both knees Vision disorder Chronic back pain Tinea cruris Surgical History Status post right knee replacement (~2021) Anesthesia Status post arthroscopy (~1984) Status post knee surgery (~1999) Social History marital status: household members: none lives independently: Yes occupational status: other Smoking Status: Former smoker Smokeless tobacco user: chewing tobacco alcohol intake: former substance use type: former substance user and marijuana Smoking Status: Former smoker alcohol intake frequency: 0-2 drinks per day Exam <Nitza Clarke MD - Last Filed: 07/28/24 19:26> Initial Vital Signs Initial Vital Signs: Vital Signs Temperature 97.7 F 07/28/24 11:56 Pulse Rate 50 L 07/28/24 11:56 Respiratory Rate 19 07/28/24 11:56 Blood Pressure 128/80 07/28/24 11:56 Pulse Oximetry 97 07/28/24 11:56 Oxygen Delivery Method Room Air 07/28/24 11:56 General: Healthy appearing, in no acute distress. Able to give a complete and coherent history. Well-nourished well-developed HEENT: Moist mucous membranes, normal sclera with reactive pupils, Respiratory: Lungs are clear to auscultation, no wheezing no rales no rhonchi. Full and symmetrical air movement Cardiac: Regular rate and rhythm no murmurs no bruits Abdomen: Soft, mild tenderness into the left lower quadrant Neurologic: Grossly neurologically intact with no obvious asymmetries or abnormalities Extremities: Left lower extremity significantly edematous, good capillary refill no evidence of cellulitis fluctuance or abscess. Palpable pulse in the inguinal crease. Too much edema for palpable pulses more distal Psych: Cooperative, appropriate insight and affect <Jv Whitman DO - Last Filed: 07/28/24 18:14> Initial Vital Signs Initial Vital Signs: Vital Signs Temperature 97.7 F 07/28/24 11:56 Pulse Rate 50 L 07/28/24 11:56 Respiratory Rate 19 07/28/24 11:56 Blood Pressure 128/80 07/28/24 11:56 Pulse Oximetry 97 07/28/24 11:56 Oxygen Delivery Method Room Air 07/28/24 11:56 Course <Nitza Clarke MD - Last Filed: 07/28/24 19:26> Orders Ordered: ED Orders 07/28/24 12:05 EKG-12 Lead Stat 07/28/24 12:14 Complete Blood Count AUTO DIFF Stat Comprehensive Metabolic Panel Stat Lipase Stat Magnesium Stat NT-proBNP (BNP-Adult 18+) Stat PTT Partial Thromboplastin Hollis Stat Prothrombin Time INR Stat Troponin & CK Cardiac Panel Stat 07/28/24 12:27 US perip venous low extrem lt Stat Vital Signs Vital signs: Vital Signs - 8 hr 07/28/24 11:56 07/28/24 12:34 07/28/24 13:00 Temperature 97.7 F Pulse Rate 50 L 91 H 75 Respiratory Rate 19 21 15 Blood Pressure 128/80 Pulse Oximetry 97 98 97 Oxygen Delivery Method Room Air 07/28/24 13:00 07/28/24 13:30 07/28/24 13:30 Temperature Pulse Rate 73 Respiratory Rate 14 Blood Pressure 112/69 111/71 Pulse Oximetry 96 Oxygen Delivery Method 07/28/24 14:00 07/28/24 14:00 07/28/24 14:30 Temperature Pulse Rate 69 69 Respiratory Rate 13 13 Blood Pressure 113/75 Pulse Oximetry 97 97 Oxygen Delivery Method 07/28/24 14:30 07/28/24 15:00 07/28/24 15:00 Temperature Pulse Rate 66 Respiratory Rate 13 Blood Pressure 105/67 111/65 Pulse Oximetry 98 Oxygen Delivery Method 07/28/24 15:30 07/28/24 15:30 07/28/24 16:00 Temperature Pulse Rate 68 66 Respiratory Rate 16 15 Blood Pressure 116/73 Pulse Oximetry 98 98 Oxygen Delivery Method 07/28/24 16:00 Temperature Pulse Rate Respiratory Rate Blood Pressure 128/67 Pulse Oximetry Oxygen Delivery Method <Jv Whitman DO - Last Filed: 07/28/24 18:14> Orders Ordered: ED Orders 07/28/24 12:05 EKG-12 Lead Stat 07/28/24 12:14 Complete Blood Count AUTO DIFF Stat Comprehensive Metabolic Panel Stat Lipase Stat Magnesium Stat NT-proBNP (BNP-Adult 18+) Stat PTT Partial Thromboplastin Hollis Stat Prothrombin Time INR Stat Troponin & CK Cardiac Panel Stat 07/28/24 12:27 US periph venous low extrem lt Stat Vital Signs Vital signs: Vital Signs - 8 hr 07/28/24 11:56 07/28/24 12:34 07/28/24 13:00 Temperature 97.7 F Pulse Rate 50 L 91 H 75 Respiratory Rate 19 21 15 Blood Pressure 128/80 Pulse Oximetry 97 98 97 Oxygen Delivery Method Room Air 07/28/24 13:00 07/28/24 13:30 07/28/24 13:30 Temperature Pulse Rate 73 Respiratory Rate 14 Blood Pressure 112/69 111/71 Pulse Oximetry 96 Oxygen Delivery Method 07/28/24 14:00 07/28/24 14:00 07/28/24 14:30 Temperature Pulse Rate 69 69 Respiratory Rate 13 13 Blood Pressure 113/75 Pulse Oximetry 97 97 Oxygen Delivery Method 07/28/24 14:30 07/28/24 15:00 07/28/24 15:00 Temperature Pulse Rate 66 Respiratory Rate 13 Blood Pressure 105/67 111/65 Pulse Oximetry 98 Oxygen Delivery Method 07/28/24 15:30 07/28/24 15:30 07/28/24 16:00 Temperature Pulse Rate 68 66 Respiratory Rate 16 15 Blood Pressure 116/73 Pulse Oximetry 98 98 Oxygen Delivery Method 07/28/24 16:00 Temperature Pulse Rate Respiratory Rate Blood Pressure 128/67 Pulse Oximetry Oxygen Delivery Method MDM - Extremity Injury (Lower) <Nitza Clarke MD - Last Filed: 07/28/24 19:26> Lab Data 07/28/24 12:14 07/28/24 12:14 Labs: Lab Results 07/28/24 Range/Units 12:14 WBC 4.5 (4.5-11.0) X10^3/uL RBC 4.64 (4.5-5.9) X10^6/uL Hgb 14.6 (13.5-17.5) g/dL Hct 43.0 (41-53) % MCV 92.7 (80-100) fL MCH 31.4 (26-34) PG MCHC 33.9 (30-36) % RDW 15.9 H (11.6-14.8) % Plt Count 163 (150-400) X10^3/uL Neut % (Auto) 47.8 L (50-75) % Lymph % (Auto) 37.5 (25-40) % [place] % (Auto) 9.2 (3-14) % Eos % (Auto) 4.8 H (2-4) % Baso % (Auto) 0.7 (0-2) % Neut # (Auto) 2100 (0719-2422) /uL Lymph # (Auto) 1700 (2400-5190) /uL [place] # (Auto) 400 (0-900) /uL Eos # (Auto) 200 (0-450) /uL Baso # (Auto) 0 (0-100) /uL PT 12.9 H (9.4-12.5) SECONDS INR 1.1 (0.9-1.3) APTT 38 H (25.1-36.5) SECONDS Sodium 137 (137-145) mmol/L Potassium 4.2 (3.4-5.1) mmol/L Chloride 106 (98-107) mmol/L Carbon Dioxide 19 L (22-32) mmol/L BUN 22 H (9-20) mg/dL Creatinine 1.22 (0.66-1.25) mg/dL Estimated GFR > 60 (>60) mL/min BUN/Creatinine Ratio 18.0 (6-22) Glucose 122 H (80-110) mg/dL Calcium 10.0 (8.4-10.2) mg/dL Magnesium 1.8 (1.6-2.3) mg/dL Total Bilirubin 0.9 (0.2-1.3) mg/dL AST 35 (17-59) IU/L ALT 23 (<50) IU/L Alkaline Phosphatase 87 (38-126) U/L Total Creatine Kinase 52 L (55-170) U/L Troponin I 0.017 (0.01-0.034) ng/mL NT-Pro-B Natriuret Pep 32 (<125) pg/mL Total Protein 9.5 H (6.3-8.2) g/dL Albumin 4.7 (3.5-5.0) g/dL Globulin 4.8 H (1.7-4.1) g/dL Albumin/Globulin Ratio 1.0 (1.0-2.8) Lipase 201 (23-300) U/L MDM Narrative Medical decision making narrative: CC: Recurrent and worsening left lower extremity pain and swelling Complicating co-morbidities: Recent DVT large pulmonary embolism, was offered thrombectomy with early June hospitalization at [facility] but declined in lieu of medical management continues on apixaban Data collected from: patient Social determinants of health that may influence the patients condition: Medical records reviewed: Medical records from [facility] with hospitalization June 21 reviewed ER visit the led to transfer to [facility] on June 21 reviewed Differential considered: New thrombus in the setting of apixaban, infection, deeper pelvic thrombus or other complication Exam documented above, pertinent findings include: Heart and lungs are unremarkable. Left lower extremity significantly edematous to the hip and buttock, he has a good inguinal pulse, too much edema to palpate popliteal or dorsal pedal pulses but he has good capillary refill Lab Test results independently reviewed as above. Pertinent findings: CBC is unremarkable Coagulation studies show an INR 1.1, PTT is minimally elevated at 38 Chemistries are reassuring Troponin is undetectable BNP is not elevated Independently reviewed EKG: Sinus rhythm at a rate of 88. No acute ischemic changes Imaging studies independently reviewed: Initial lower extremity ultrasound June 20, 2024: FINDINGS: Occlusive deep venous thrombus is seen within the central radial saphenous vein as well as the common femoral, femoral, profunda femoral, and popliteal veins. Calf veins are not well seen due to overlying edema in the lower leg Ultrasound from today: Extensive intraluminal filling defects throughout left femoral vein, superficial femoral vein, popliteal vein and left greater saphenous vein extending to the left external iliac vein is seen with absence of flow. Consultations: Dr Hagen medicine. Start Heparin. Transfer to . Discussed with vascular surgeon, Dr. Wilburn who will evaluate the patient once he is at [facility] Treatments: IV heparin is started Discussion: 74-year-old gentleman with a history of psoriatic arthritis recent DVT and pulmonary embolism currently on apixaban comes in with increasing left lower extremity pain and now has his left lower DVT extending into his pelvis. With initial admission he had declined thrombectomy, he is willing to consider that now. Reviewed with physicians at [facility] which she is where he was initially treated. They will accept him, currently waiting for a bed. Vascular surgery will consult once he is available. Heparin is started. At this point he is hemodynamically stable understands need for transfer for extension of his DVT on oral anticoagulation. Because he is having no tachypnea, tachycardia, hypotension or hypoxia CT scan of the chest is not repeated today. Questions were answered. <Jv Whitman, DO - Last Filed: 07/28/24 18:14> Lab Data Labs: Lab Results 07/28/24 Range/Units 12:14 WBC 4.5 (4.5-11.0) X10^3/uL RBC 4.64 (4.5-5.9) X10^6/uL Hgb 14.6 (13.5-17.5) g/dL Hct 43.0 (41-53) % MCV 92.7 (80-100) fL MCH 31.4 (26-34) PG MCHC 33.9 (30-36) % RDW 15.9 H (11.6-14.8) % Plt Count 163 (150-400) X10^3/uL Neut % (Auto) 47.8 L (50-75) % Lymph % (Auto) 37.5 (25-40) % [place] % (Auto) 9.2 (3-14) % Eos % (Auto) 4.8 H (2-4) % Baso % (Auto) 0.7 (0-2) % Neut # (Auto) 2100 (1693-7393) /uL Lymph # (Auto) 1700 (5433-7282) /uL [place] # (Auto) 400 (0-900) /uL Eos # (Auto) 200 (0-450) /uL Baso # (Auto) 0 (0-100) /uL PT 12.9 H (9.4-12.5) SECONDS INR 1.1 (0.9-1.3) APTT 38 H (25.1-36.5) SECONDS Sodium 137 (137-145) mmol/L Potassium 4.2 (3.4-5.1) mmol/L Chloride 106 (98-107) mmol/L Carbon Dioxide 19 L (22-32) mmol/L BUN 22 H (9-20) mg/dL Creatinine 1.22 (0.66-1.25) mg/dL Estimated GFR > 60 (>60) mL/min BUN/Creatinine Ratio 18.0 (6-22) Glucose 122 H (80-110) mg/dL Calcium 10.0 (8.4-10.2) mg/dL Magnesium 1.8 (1.6-2.3) mg/dL Total Bilirubin 0.9 (0.2-1.3) mg/dL AST 35 (17-59) IU/L ALT 23 (<50) IU/L Alkaline Phosphatase 87 (38-126) U/L Total Creatine Kinase 52 L (55-170) U/L Troponin I 0.017 (0.01-0.034) ng/mL NT-Pro-B Natriuret Pep 32 (<125) pg/mL Total Protein 9.5 H (6.3-8.2) g/dL Albumin 4.7 (3.5-5.0) g/dL Globulin 4.8 H (1.7-4.1) g/dL Albumin/Globulin Ratio 1.0 (1.0-2.8) Lipase 201 (23-300) U/L MDM Narrative Medical decision making narrative: CC: Recurrent and worsening left lower extremity pain and swelling Complicating co-morbidities: Recent DVT large pulmonary embolism, was offered thrombectomy with early June hospitalization at [facility] but declined in lieu of medical management continues on apixaban Data collected from: patient Social determinants of health that may influence the patients condition: Medical records reviewed: Medical records from [facility] with hospitalization June 21 reviewed ER visit the led to transfer to [facility] on June 21 reviewed Differential considered: New thrombus in the setting of apixaban, infection, deeper pelvic thrombus or other complication Exam documented above, pertinent findings include: Heart and lungs are unremarkable. Left lower extremity significantly edematous to the hip and buttock, he has a good inguinal pulse, too much edema to palpate popliteal or dorsal pedal pulses but he has good capillary refill Lab Test results independently reviewed as above. Pertinent findings: CBC is unremarkable Coagulation studies show an INR 1.1, PTT is minimally elevated at 38 Chemistries are reassuring Troponin is undetectable BNP is not elevated Independently reviewed EKG: Sinus rhythm at a rate of 88. No acute ischemic changes Imaging studies independently reviewed: Initial lower extremity ultrasound June 20, 2024: FINDINGS: Occlusive deep venous thrombus is seen within the central radial saphenous vein as well as the common femoral, femoral, profunda femoral, and popliteal veins. Calf veins are not well seen due to overlying edema in the lower leg Ultrasound from today: Extensive intraluminal filling defects throughout left femoral vein, superficial femoral vein, popliteal vein and left greater saphenous vein extending to the left external iliac vein is seen with absence of flow. Consultations: Dr Hagen medicine. Start Heparin. Transfer to . Discussed with vascular surgeon, Dr. Wilburn who will evaluate the patient once he is at [facility] Treatments: IV heparin is started Discussion: 74-year-old gentleman with a history of psoriatic arthritis recent DVT and pulmonary embolism currently on apixaban comes in with increasing left lower extremity pain and now has his left lower DVT extending into his pelvis. With initial admission he had declined thrombectomy, he is willing to consider that now. Reviewed with physicians at [facility] which she is where he was initially treated. They will accept him, currently waiting for a bed. Vascular surgery will consult once he is available. Heparin is started. At this point he is hemodynamically stable understands need for transfer for extension of his DVT on oral anticoagulation. Because he is having no tachypnea, tachycardia, hypotension or hypoxia CT scan of the chest is not repeated today. Questions were answered. 1800: Dr. Whitman Received sign-out by Dr. Clarke: patient is a 74-year-old male with recent known history of PE DVT on Eliquis who presented increased left lower extremity pain, he was previously evaluated at [facility] in June and was offered a thrombectomy for his known large PE but declined at that time, ultrasound now showing enlarging DVT to the left femoral vein superficial femoral vein popliteal vein and left greater saphenous vein into the left external iliac vein, patient is on heparin has been accepted at [facility] pending transfer/ bed placement. patient otherwise hemodynamically stable, will continue to monitor Critical Care Time <Nitza Clarke MD - Last Filed: 07/28/24 19:26> Critical Care Time Critical Care Time: Yes Total Critical Care Time: 33 Attestation: Critical care time is separate from other billable procedures. There is a high probability of a significant, sudden or life-threatening deterioration that requires my full and direct attention, intervention and personal management. This critical care time includes consultation with family and other consulting doctors, review of records, and interpretation of data from labs, EKGs and imaging as well as managements of complex clotting disorder, failed outpatient treatment of veno thromboembolism, IV heparin initiated Discharge Plan Departure Patient Disposition: [facility] Clinical Impression: Acute deep vein thrombosis (DVT) of left lower extremity DVT (deep venous thrombosis) Qualifiers: DVT location: lower extremity Affected thrombotic vein of extremity: iliac Chronicity: acute Laterality: left Qualified Code(s): I82.422 - Acute embolism and thrombosis of left iliac vein Pulmonary embolism Qualifiers: Pulmonary embolism type: unspecified Chronicity: chronic Acute cor pulmonale presence: unspecified Qualified Code(s): I27.82 - Chronic pulmonary embolism Prescriptions: No Action apixaban 5 mg tablet 5 mg PO BID Qty: 180 1RF Cosentyx Pen (2 Pens) 150 mg/mL pen injector 150 mg SUBCUT Q4W Patient Comments: [NO ORIGINAL SIG] meloxicam 15 mg tablet 15 mg PO DAILY PRN (Reason: joint pain) Qty: 90 1RF Hold Instructions: PE/DVT acetaminophen 325 mg Tablet 650 mg PO Q6H PRN (Reason: Fever/Mild Pain (1-3)) Qty: 60 0RF aspirin 81 mg Tablet,Delayed Release (Dr/Ec) 81 mg PO BID Qty: 90 0RF polyethylene glycol 3350 17 gram Powder In Packet 17 g PO DAILY PRN (Reason: Constipation) Qty: 14 0RF Referrals: Zhao Brannon MD [Primary Care Provider] -
[2024-07-28] MEDS: HEPARIN DRIP 25,000 UNIT/500 ML IV.SOLN 34.781 UNIT IV (19:01)
--- NOTE | 2024-07-28 19:52 | PC.NURSE ---
report given to CCT BASIA Morfin
== END 2024-07-28 19:45 | disposition short-term general hospital (02) ==
PROVIDERS: Emergency Medicine; Emergency Provider Student in an Organized Health Care Education/Training Program; PCP Family Medicine
DX: I82.422 Acute embolism and thrombosis of left iliac vein (principal); I27.82 Chronic pulmonary embolism; Z79.01 Long term (current) use of anticoagulants
CPT/HCPCS: 80053; 82550; 83690; 83735; 83880; 84484; 85025; 85610; 85730; 93005; 93971; 96365; 99284; 99291; J1644

== ENCOUNTER → 2024-10-13 11:45 | Outpatient (CLI) | payer MEDICARE, MEDICAID, SELFPAY ==
[2024-09-29 11:05] VITALS: BMI 29.0
--- NOTE | 2024-10-13 11:48 | DI.US.S_ITS ---
PROCEDURE: US PERIP VENOUS LOW EXTREM LT INDICATIONS: known DVT, evaluation of treatment progress TECHNIQUE: Real-time imaging, as well as color and pulse Doppler interrogation, were performed of the lower extremity deep veins from the inguinal ligament to the popliteal fossa, with documentation of the visualized calf veins. COMPARISON: [facility], , [facility] VENOUS LOW EXTREM LT, 07/28/2024, 12:45. FINDINGS: The greater saphenous vein is patent without visible filling defects. Normal venous phasicity and compressibility. Eccentric, nonocclusive echogenic material within the distal and mid common femoral vein, less than compared to prior. The profundus femoral vein is patent without filling defect. The midportion of the superficial femoral vein demonstrates complete occlusion and in compressibility. There is trace venous flow in the proximal and distal superficial femoral vein. There is partially occlusive material in the popliteal vein. Calf veins in the proximal portion appear compressible, not well seen distally due to edema. The distal IVC is patent. IMPRESSION: Decreasing clot burden in the left lower extremity with several segments of the vein now with only partially occlusive thrombus. Mid superficial femoral vein remains occluded. Dictated by: Karma Hurley M.D. on 10/14/2024 at 14:17 Approved by: Karma Hurley M.D. on 10/14/2024 at 14:23
[2024-10-13 12:26] LABS: Estimated Glomerular Filt Rate > 60 mL/min (>60)
--- NOTE | 2024-10-13 13:01 | DI.CT.S_ITS ---
PROCEDURE: CT VENOGRAM LOW EXT LEFT COMPARISON: Outside Facility, CT, CT VENOGRAM ABDOMEN/PELVIS, 07/29/2024, 17:41. INDICATIONS: known DVT, evaluation of treatment progress FINDINGS: VASCULAR: Interval resolution of nonocclusive thrombus within the left external iliac, common femoral and femoral veins. The popliteal vein is not well visualized due to streak artifact from a left knee replacement prosthesis. Tibial veins of the left lower extremity appear patent, given limitations due to suboptimal contrast opacification. Both common iliac veins appear patent. Right external iliac, common femoral, femoral and visualized popliteal veins appear patent with obscuration of the right popliteal vein at the level of the knee joint due to streak artifact from a right knee replacement prosthesis. Bilateral common iliac, external iliac and internal iliac arteries appear patent. Bilateral common femoral, SFA, profunda femoris arteries, visualized popliteal arteries and tibial arteries appear patent. BOWEL/PERITONEAL CAVITY/ABDOMINAL WALL: Visualized large and small bowel within the pelvis appear normal in caliber without dilatation. No fluid collections within the pelvis. Small umbilical hernia containing fat. URINARY BLADDER: 2 mm calcification within the left UVJ likely tiny nonobstructing ureteral stone. Urinary bladder appears otherwise unremarkable. BONE: Degenerative changes throughout the visualized lower lumbar spine. Bilateral knee replacement prostheses in place. No acute osseous abnormality involving both lower extremities. OTHER: Stable size of a 4.5 cm intramuscular lipoma within the left gastric knee medius muscle (series 3, image 189) and a 3 cm intramuscular lipoma within the left soleal muscle (series 2, image 410). Slight interval decrease in left thigh subcutaneous edema and mild degree of subcutaneous edema involving the left calf. IMPRESSION: Interval resolution of left lower extremity DVT as described. Popliteal vein is not well visualized due to metallic artifact from left knee replacement prosthesis. Dictated by: Bear Loja M.D. on 10/14/2024 at 13:05 Approved by: Bear Loja M.D. on 10/14/2024 at 13:17
== END ==
PROVIDERS: PCP Family Medicine; Referring Provider Family Medicine; Visit Provider Family Medicine
DX: I82.412 Acute embolism and thrombosis of left femoral vein (principal); I82.432 Acute embolism and thrombosis of left popliteal vein; I26.99 Other pulmonary embolism without acute cor pulmonale
CPT/HCPCS: 36415; 73706; 82565; 93971; Q9967

== ENCOUNTER → 2024-10-14 09:02 | Outpatient (CLI) | payer MEDICARE, MEDICAID, SELFPAY ==
[2024-09-29 11:05] VITALS: BMI 29.0
== END ==
PROVIDERS: PCP Family Medicine; Referring Provider Dermatology; Visit Provider Dermatology
DX: L40.0 Psoriasis vulgaris (principal); L40.59 Other psoriatic arthropathy
CPT/HCPCS: 36415; 87522

== ENCOUNTER → 2024-10-20 08:23 | Outpatient (CLI) | payer MEDICARE, MEDICAID, SELFPAY ==
[2024-09-29 11:05] VITALS: BMI 29.0
[2024-10-23 22:36] LABS: QuantiFERON Mitogen Value >10.00 IU/mL (.); QuantiFERON Nil Value 2.13 IU/mL (.); QuantiFERON TB Gold Plus Positive (Negative); QuantiFERON TB1 Ag Value 3.02 IU/mL (.); QuantiFERON TB2 Ag Value 2.53 IU/mL (.)
== END ==
PROVIDERS: PCP Family Medicine; Referring Provider Dermatology; Visit Provider Dermatology
DX: L40.0 Psoriasis vulgaris (principal); L40.59 Other psoriatic arthropathy
CPT/HCPCS: 36415; 86480; 87522

== ENCOUNTER → 2024-11-10 08:38 | Outpatient (CLI) | payer MEDICARE, MEDICAID, SELFPAY ==
[2024-11-02 10:29] VITALS: BMI 29.0
[2024-11-10 09:01] LABS: Add Manual Diff / Slide Review NO; Basophils Absolute Auto 0 /uL (0-100); Basophils Percent Auto 0.6 % (0-2); Eosinophils Absolute Auto 200 /uL (0-450); Eosinophils Percent Auto 4.8 % (2-4); Hematocrit 42.6 % (41-53); Hemoglobin 14.6 g/dL (13.5-17.5); Lymphocytes Absolute Auto 1700 /uL (1100-4500); Lymphocytes Percent Auto 41.1 % (25-40); Mean Corpuscular HGB Conc 34.3 % (30-36); Mean Corpuscular Hemoglobin 31.6 PG (26-34); Monocytes Absolute Auto 400 /uL (0-900); Monocytes Percent Auto 8.7 % (3-14); Neutrophils Absolute Auto 1900 /uL (1500-7000); Neutrophils Percent Auto 44.8 % (50-75); Platelet Count 133 X10^3/uL (150-400); Red Blood Cell Count 4.63 X10^6/uL (4.5-5.9); Red Cell Distribution Width 13.9 % (11.6-14.8); White Blood Cell Count 4.2 X10^3/uL (4.5-11.0)
[2024-11-10 09:30] LABS: Alanine Aminotransferase 19 IU/L (<50); Albumin 4.6 g/dL (3.5-5.0); Albumin Globulin Ratio 1.2 (1.0-2.8); Alkaline Phosphatase 70 U/L (38-126); Aspartate Aminotransferase 27 IU/L (17-59); BUN Creatinine Ratio 21.2 (6-22); Bilirubin Total 0.7 mg/dL (0.2-1.3); Blood Urea Nitrogen 18 mg/dL (9-20); Calcium 9.6 mg/dL (8.4-10.2); Carbon Dioxide 22 mmol/L (22-32); Chloride 106 mmol/L (98-107); Estimated Glomerular Filt Rate > 60 mL/min (>60); Globulin 3.7 g/dL (1.7-4.1); Glucose 108 mg/dL (70-99); HEMOLYSIS 21 (0-50); Potassium 4.5 mmol/L (3.4-5.1); Sodium 139 mmol/L (137-145); Total Protein 8.3 g/dL (6.3-8.2)
== END ==
PROVIDERS: PCP Family Medicine; Referring Provider Family Medicine; Visit Provider Family Medicine
DX: Z22.7 Latent tuberculosis (principal); Z79.899 Other long term (current) drug therapy
CPT/HCPCS: 36415; 80053; 85025; 86480

== ENCOUNTER → 2025-01-25 10:18 | Outpatient (CLI) | payer MEDICARE, MEDICAID, SELFPAY ==
[2024-11-02 10:29] VITALS: BMI 29.0
--- NOTE | 2025-01-25 10:20 | DI.CT.S_ITS ---
PROCEDURE: CT VENOGRAM LOW EXT LEFT COMPARISON: [facility], US, US PERIPH VENOUS LOW EXTREM LT, 01/25/2025, 11:16. Outside Facility, CT, CT VENOGRAM ABDOMEN/PELVIS, 07/29/2024, 17:41. [facility], CT, CT VENOGRAM LOW EXT LEFT, 10/13/2024, 13:09. INDICATIONS: known DVT, evla of treatment progress TECHNIQUE: CT acquisition of the pelvis through the bilateral lower extremities was performed with coronal and sagittal reconstructions. The exam was performed in venous phase following the administration of intravenous contrast. FINDINGS: Pelvis: Excreted contrast in the bilateral ureters. Mild prostatomegaly with dystrophic calcifications within the central prostate. Normal appendix. The visualized small and large bowel are normal in caliber. There is a small ventral fat containing abdominal hernia, with the abdominal wall defect measuring 1.6 x 2 cm (craniocaudal by transverse). Degenerative changes of the lumbosacral junction with osseous degenerative fusion of the right sacroiliac joint. Vascular: Patent distal inferior vena cava, bilateral common iliac veins. Asymmetric decreased caliber of the left common femoral vein may represent chronic thrombosis. This extends to the proximal popliteal vein. Asymmetric increased prominence of the left greater saphenous vein with varicosities. Patent right superficial femoral vein. Poor visualization of the bilateral popliteal vein secondary to streak artifact from the bilateral total knee prostheses. Patent distal abdominal aorta, bilateral common iliac arteries, external and internal iliac arteries, common femoral arteries, bilateral profundus femoris arteries, bilateral superficial femoral arteries, and proximal bilateral popliteal arteries. Patent tibial arteries. IMPRESSION: Asymmetric decreased caliber of the left common femoral vein to the proximal left popliteal vein corresponds to the chronic thrombosis seen on same-day venous ultrasound. Corresponding increased prominence of the superficial venous system in the left lower extremity. Again seen fat containing periumbilical hernia. Dictated by: Russ Retana M.D. on 01/26/2025 at 15:13 Approved by: Russ Retana M.D. on 01/26/2025 at 15:45
--- NOTE | 2025-01-25 10:20 | DI.CT.S_ITS ---
PROCEDURE: CT ANGIO CHEST PE PROTOCOL INDICATIONS: assess for resolution of PE TECHNIQUE: After the administration of intravenous contrast, 2 mm thick sections acquired from the pulmonary apices to the posterior costophrenic angles. 3-dimensional maximum intensity projection (MIP) coronal and sagittal reformats were then acquired through the thorax. For radiation dose reduction, the following was used: automated exposure control, adjustment of mA and/or kV according to patient size. COMPARISON: [facility], CT, CT ANGIO CHEST PE PROTOCOL, 06/21/2024, 0:43. FINDINGS: Image quality: Diagnostic. Pulmonary arteries: Pulmonary arteries are normal in size, and demonstrate no intraluminal filling defects to suggest central pulmonary embolism. Lower Neck: No enlarged lymph nodes. Thyroid: No thyroid nodules which require sonographic follow up, per consensus guidelines. Axillae: No enlarged lymph nodes. Chest Wall: Gynecomastia. Bones: No suspicious osseous lesion. Lungs and Pleura: No pneumothorax or pleural effusions. No consolidation or suspicious nodules. Heart: Heart size is normal. No pericardial effusion. Thoracic Vessels: No aortic aneurysm. No aortic dissection. Mediastinum and Jami: Shotty mediastinal and hilar lymph nodes. Esophagus: No wall thickening. No hiatal hernia. Upper Abdomen: Cirrhosis. Small gallstones. Splenomegaly. No ascites is seen in the upper abdomen. No adrenal nodule. IMPRESSION: 1. No pulmonary embolism. 2. No acute airspace opacity. 3. Cirrhosis. Splenomegaly. Gallstones. Dictated by: Jose Saul M.D. on 01/25/2025 at 15:08 Approved by: Jose Saul M.D. on 01/25/2025 at 15:30
--- NOTE | 2025-01-25 10:20 | DI.US.S_ITS ---
PROCEDURE: US PERIP VENOUS LOW EXTREM LT INDICATIONS: CHRONIC DEEP VEIN THROMBOSIS. TECHNIQUE: Real-time imaging, as well as color and pulse Doppler interrogation, were performed of the lower extremity deep veins from the inguinal ligament to the popliteal fossa, with documentation of the visualized calf veins. COMPARISON: [facility], CT, CT VENOGRAM LOW EXT LEFT, 10/13/2024, 13:09. [facility], US, US PERIP VENOUS LOW EXTREM LT, 07/28/2024, 12:45. FINDINGS: Nonocclusive, echogenic thrombus identified in the left femoral vein and popliteal vein with loss of normal compression. The common femoral, and the visualized calf veins are normally compressible, and free of intraluminal thrombus. Color and pulse Doppler demonstrate normal phasic intraluminal flow. There is normal augmentation response to distal compression maneuver. IMPRESSION: Abnormal study demonstrating chronic appearing, nonocclusive deep vein thrombosis involving the left femoral vein and left popliteal vein. Dictated by: Yaima Cotton MD, PhD on 01/25/2025 at 11:38 Approved by: Yaima Cotton MD, PhD on 01/25/2025 at 11:40
[2025-01-25 11:11] LABS: Estimated Glomerular Filt Rate > 60 mL/min (>60)
== END ==
LOC: CT 10:19
PROVIDERS: PCP Family Medicine; Referring Provider Family Medicine; Visit Provider Family Medicine
DX: I82.412 Acute embolism and thrombosis of left femoral vein (principal); I82.432 Acute embolism and thrombosis of left popliteal vein; I26.99 Other pulmonary embolism without acute cor pulmonale; K74.60 Unspecified cirrhosis of liver; K80.20 Calculus of gallbladder without cholecystitis without obstruction; R16.1 Splenomegaly, not elsewhere classified
CPT/HCPCS: 36415; 71275; 73706; 82565; 93971; Q9967